=== PATIENT | female | born 1980 | race Caucasian/White ===

== ENCOUNTER 2016-06-10 08:35 | Emergency (ER) | payer OTHER ==
[~2016-06-10] VITALS: Ht 157.5 cm; Wt 68.0 kg
[~2016-06-10 08:35] MED LIST: ALPR0.5T PO; FAMO-131 PO; RISP0.5T2 PO
[2016-06-10 08:47] VITALS: BP 116/64
== END 2016-06-10 09:13 | disposition home or self-care (01) ==
LOC: ER 08:37
DX: J06.9 Acute upper respiratory infection, unspecified (principal); R05 Cough; F41.9 Anxiety disorder, unspecified; Z88.6 Allergy status to analgesic agent
CPT/HCPCS: 99283; A4606; Z7610

== ENCOUNTER 2016-11-20 02:39 | Emergency (ER) | payer MEDICARE, OTHER ==
[~2016-11-20] VITALS: Ht 157.5 cm; Wt 63.5 kg
--- NOTE | 2016-11-20 03:05 | NUR ---
TO BED 4 AMBULATORY C/O BILATERAL FOOT PAIN, FEELING DEPRESSED X3 DAYS, SI WITH PLAN TO OD ON MEDS (ATIVAN). PT AAOX4 NO ACUTE DISTRESS NOTED, RESP EVEN AND UNLABORED. URINE SAMPLE COLLECTED. PENDING ER MD ARTIS.
--- NOTE | 2016-11-20 03:28 | NUR ---
BLOOD DRAWN BY PROFESSOR OF ENGINEERING.
[2016-11-20 03:35] LABS: BASOPHILS # (AUTO) 0.1 /CMM (0.0-0.2); BASOPHILS % (AUTO) 0.7 % (0.0-2.0); EOSINOPHILS # (AUTO) 0.2 /CMM (0.0-0.7); HEMATOCRIT 34 % (33-45); HEMOGLOBIN 11.2 g/dL (11.5-14.8); LYMPHOCYTES # (AUTO) 4.1 /CMM (0.8-4.8); LYMPHOCYTES % (AUTO) 39.7 % (20.0-44.0); MEAN CORPUSCULAR HEMOGLOBIN 31 PG (26.0-33.0); MEAN CORPUSCULAR HGB CONC 33 g/dl (31.0-36.0); MEAN CORPUSCULAR VOLUME 91 fL (82-100); MONOCYTES # (AUTO) 1.1 /CMM (0.1-1.30); MONOCYTES % (AUTO) 10.8 % (2.0-12.0); NEUTROPHILS # (AUTO) 4.8 /CMM (1.8-8.9); NEUTROPHILS % (AUTO) 46.8 % (43.0-81.0); PLATELET COUNT (AUTO) 292 /CMM (150-450); RDW COEFFICIENT OF VARIATION 13.4 (11.5-15.0); RED BLOOD CELL COUNT(AUTO) 3.69 MIL/uL (4.0-5.2); WHITE BLOOD COUNT (AUTO) 10.3 K/uL (4.3-11.0)
[2016-11-20 03:36] LABS: APPEARANCE,URINE CLEAR (CLEAR); BILIRUBIN,URINE NEGATIVE (NEGATIVE); BLOOD, URINE 2+ Ery/uL (NEGATIVE); KETONES,URINE NEGATIVE (NEGATIVE); LEUKOCYTE ESTERASE ,URINE TRACE (NEGATIVE); NITRITE, URINE NEGATIVE (NEGATIVE); PROTEIN,URINE NEGATIVE (NEGATIVE); UGLUCOSE NEGATIVE (NEGATIVE); UROBILINOGEN,URINE 0.2 EU/dL (0.2)
[2016-11-20 03:38] LABS: COLOR,URINE Light yellow (YELLOW)
[2016-11-20 03:42] LABS: RBC,URINE 0-2 /HPF (0-2)
[2016-11-20 03:43] LABS: BACTERIA,URINE None seen /HPF (None Seen); SQUAMOUS EPITHELIAL CELL,UR Moderate /HPF (None Seen); WBC,URINE 0-3 /HPF (0-3)
[2016-11-20 04:05] LABS: ALANINE AMINOTRANSFERASE 30 U/L (12-78); ALBUMIN 3.6 g/dL (3.4-5.0); ALCOHOL, BLOOD < 3 mg/dL (0-0); ALKALINE PHOSPHATASE 68 U/L (46-116); ASPARTATE AMINOTRANSFERASE 20 U/L (15-37); BILIRUBIN,TOTAL 0.2 mg/dL (0.2-1.0); CALCIUM, SERUM 8.8 mg/dL (8.5-10.1); CARBON DIOXIDE 28 mmol/L (21-32); CHLORIDE 105 mmol/L (98-107); CREATININE 0.8 mg/dL (0.6-1.3); GLUCOSE 102 mg/dL (74-106); POTASSIUM 3.6 mmol/L (3.5-5.1); SODIUM SERUM 141 mmol/L (136-145); TOTAL PROTEIN, SERUM 7.1 g/dL (6.4-8.2); UREA NITROGEN, BLOOD 19 mg/dL (7-18)
[2016-11-20 04:24] LABS: ACETAMINOPHEN 0 ug/ml (10-30)
--- NOTE | 2016-11-20 06:45 | NUR ---
PT SEEN BY FREDERICK WRIGHT, PT PLACED ON 5150. PT WILL BE TRANSFERRED TO [facility]. REPORT GIVEN TO ROSALIA. PT WILL GO TO [facility] ROOM 2232.
--- NOTE | 2016-11-20 06:47 | NUR ---
ETA FOR TRANSPORT IS 0730 WITH [facility]
[2016-11-20 07:00] VITALS: BP 114/81
--- NOTE | 2016-11-20 07:43 | NUR ---
REPORT GIVEN TO AMBULANCE STAFF FOR TRANSPORT TO [place].
== END 2016-11-20 07:47 ==
LOC: ER 02:42
DX: F19.10 Other psychoactive substance abuse, uncomplicated (principal); F32.9 Major depressive disorder, single episode, unspecified; Z59.0 Homelessness; Z88.8 Allergy status to other drugs, medicaments and biological substances
CPT/HCPCS: 36415; 80048; 80076; 80305; 80329; 81001; 85025; 99285; A4606; G0480 ×2; 81000-TC; Z7610

== ENCOUNTER 2017-05-07 03:26 | Emergency (ER) | payer OTHER, MEDICARE ==
[~2017-05-07] VITALS: Ht 157.5 cm; Wt 72.6 kg
[~2017-05-07 03:26] MED LIST changes: -RISP0.5T2 PO; +RISP0.5T5 PO
--- NOTE | 2017-05-07 03:26 | NUR ---
PT RECEIVED FROM HOME BB SELF C/O "I NEED MED CLEARANCE SO I CAN STAY AT A NEAR BY FACILITY. I HAVE DEPRESSION AND ANXIETY. I WANT TO LIVE ON MY OWN". NO SOB. NO PAIN. VSS NAD. WILL CONTINUE TO MONITOR FOR ANY CHANGES DURING THE SHIFT
--- NOTE | 2017-05-07 03:45 | NUR ---
LAB AT BEDSIDE FOR BLOOD DRAW
[2017-05-07 03:54] LABS: BASOPHILS # (AUTO) 0.1 /CMM (0.0-0.2); EOSINOPHILS # (AUTO) 0.1 /CMM (0.0-0.7); EOSINOPHILS % (AUTO) 1.2 % (0.0-6.0); HEMATOCRIT 38 % (33-45); HEMOGLOBIN 12.9 g/dL (11.5-14.8); LYMPHOCYTES # (AUTO) 2.3 /CMM (0.8-4.8); LYMPHOCYTES % (AUTO) 24.1 % (20.0-44.0); MEAN CORPUSCULAR HEMOGLOBIN 31 PG (26.0-33.0); MEAN CORPUSCULAR HGB CONC 34 g/dl (31.0-36.0); MEAN CORPUSCULAR VOLUME 90 fL (82-100); MONOCYTES # (AUTO) 0.8 /CMM (0.1-1.30); MONOCYTES % (AUTO) 8.4 % (2.0-12.0); NEUTROPHILS # (AUTO) 6.4 /CMM (1.8-8.9); NEUTROPHILS % (AUTO) 65.3 % (43.0-81.0); PLATELET COUNT (AUTO) 296 /CMM (150-450); RDW COEFFICIENT OF VARIATION 13.8 (11.5-15.0); RED BLOOD CELL COUNT(AUTO) 4.19 MIL/uL (4.0-5.2); WHITE BLOOD COUNT (AUTO) 9.7 K/uL (4.3-11.0)
[2017-05-07 03:54] LABS: APPEARANCE,URINE CLEAR (CLEAR); BILIRUBIN,URINE NEGATIVE (NEGATIVE); BLOOD, URINE 1+ Ery/uL (NEGATIVE); COLOR,URINE YELLOW (YELLOW); KETONES,URINE NEGATIVE (NEGATIVE); LEUKOCYTE ESTERASE ,URINE NEGATIVE (NEGATIVE); NITRITE, URINE NEGATIVE (NEGATIVE); PROTEIN,URINE NEGATIVE (NEGATIVE); UGLUCOSE NEGATIVE (NEGATIVE); UROBILINOGEN,URINE 0.2 EU/dL (0.2)
--- NOTE | 2017-05-07 03:55 | NUR ---
CALLED DANNIELLE AT [facility], SHE STATES THEY SENT THE PATIENT OVER AND THERE IS A BED AVAILBLE ONCE CLEARED FOR PATIENT
[2017-05-07 04:03] LABS: CALCIUM, SERUM 8.7 mg/dL (8.5-10.1); CARBON DIOXIDE 26 mmol/L (21-32); CHLORIDE 105 mmol/L (98-107); CREATININE 0.8 mg/dL (0.6-1.3); GLUCOSE 114 mg/dL (74-106); SODIUM SERUM 140 mmol/L (136-145); UREA NITROGEN, BLOOD 21 mg/dL (7-18)
[2017-05-07 04:10] LABS: ALANINE AMINOTRANSFERASE 26 U/L (12-78); ALBUMIN 3.8 g/dL (3.4-5.0); ALKALINE PHOSPHATASE 75 U/L (46-116); ASPARTATE AMINOTRANSFERASE 8 U/L (15-37); BILIRUBIN,TOTAL 0.2 mg/dL (0.2-1.0); TOTAL PROTEIN, SERUM 8.4 g/dL (6.4-8.2)
[2017-05-07 04:11] LABS: ACETAMINOPHEN 0 ug/ml (10-30); ALCOHOL, BLOOD < 3 mg/dL (0-0); SALICYLATE 0.3 mg/dL (2.8-20.0)
[2017-05-07 04:13] LABS: BACTERIA,URINE Few /HPF (None Seen); SQUAMOUS EPITHELIAL CELL,UR Few /HPF (None Seen); WBC,URINE 0-2 /HPF (0-3)
--- NOTE | 2017-05-07 04:21 | NUR ---
Patient is resting comfortably in bed with eyes closed. Easily aroused. VSS
--- NOTE | 2017-05-07 05:03 | NUR ---
Patient discharged to home in stable condition. Written and verbal after care instructions given. Patient verbalizes understanding of instruction. Pt waiting in waiting room until [facility] cab picks up the pt and takes the pt to [facility] for voluntary admission. VSS. Ambulated with steady gait.
--- NOTE | 2017-05-07 05:03 | NUR ---
PT WAITING IN WAITING ROOM TO BE PICKED UP
[2017-05-07 05:06] VITALS: BP 127/73
== END 2017-05-07 05:07 | disposition home or self-care (01) ==
LOC: ER 03:31
DX: Z00.8 Encounter for other general examination (principal); F32.9 Major depressive disorder, single episode, unspecified; F41.9 Anxiety disorder, unspecified; F17.200 Nicotine dependence, unspecified, uncomplicated; Z88.6 Allergy status to analgesic agent
CPT/HCPCS: 36415; 80048; 80076; 80305; 80329; 81001; 84703; 85025; 99284; A4606; G0480 ×2; Z7610; 81000-TC

== ENCOUNTER 2019-04-25 19:49 | Emergency (ER) | payer MEDICARE, OTHER ==
[~2019-04-25] VITALS: Ht 157.5 cm; Wt 85.7 kg
--- NOTE | 2019-04-25 19:49 | NUR ---
C/O "I'M FEELING SUICIDAL, I DON'T WANT TO LIVE ANYMORE, I PLAN TO OVERDOSE ON MY DEDICATION". DENIES HI, PT TO BED 5, -SO,B NAD NOTED, VSS, PENDING MD ARTIS
--- NOTE | 2019-04-25 21:18 | NUR ---
CALLED SECURITY FOR WANDING
--- NOTE | 2019-04-25 21:19 | NUR ---
ALL BELONGINGS IN LOCKER FOR SAFETY, PATIENT SITTER BY BEDSIDE
[2019-04-25 21:21] LABS: APPEARANCE,URINE CLEAR (CLEAR); BILIRUBIN,URINE NEGATIVE (NEGATIVE); BLOOD, URINE TRACE-INTA Ery/uL (NEGATIVE); COLOR,URINE YELLOW (YELLOW); KETONES,URINE NEGATIVE (NEGATIVE); LEUKOCYTE ESTERASE ,URINE NEGATIVE (NEGATIVE); NITRITE, URINE NEGATIVE (NEGATIVE); PROTEIN,URINE NEGATIVE (NEGATIVE); UGLUCOSE NEGATIVE (NEGATIVE); UROBILINOGEN,URINE 0.2 EU/dL (0.2)
[2019-04-25 21:28] LABS: BASOPHILS # (AUTO) 0.3 /CMM (0.0-0.2); BASOPHILS % (AUTO) 2.5 % (0.0-2.0); EOSINOPHILS % (AUTO) 1.1 % (0.0-6.0); HEMATOCRIT 34 % (33-45); HEMOGLOBIN 11.2 g/dL (11.5-14.8); LYMPHOCYTES # (AUTO) 2.3 /CMM (0.8-4.8); MEAN CORPUSCULAR HGB CONC 33 g/dl (31.0-36.0); MEAN CORPUSCULAR VOLUME 87 fL (82-100); MONOCYTES % (AUTO) 9.7 % (2.0-12.0); NEUTROPHILS # (AUTO) 6.8 /CMM (1.8-8.9); NEUTROPHILS % (AUTO) 64.7 % (43.0-81.0); PLATELET COUNT (AUTO) 390 /CMM (150-450); RED BLOOD CELL COUNT(AUTO) 3.88 MIL/uL (4.0-5.2); WHITE BLOOD COUNT (AUTO) 10.5 K/uL (4.3-11.0)
[2019-04-25 21:41] LABS: ACETAMINOPHEN < 2 ug/ml (10-30); ALANINE AMINOTRANSFERASE 30 U/L (12-78); ALBUMIN 3.7 g/dL (3.4-5.0); ALCOHOL, BLOOD < 3 mg/dL (0-0); ALKALINE PHOSPHATASE 68 U/L (46-116); ASPARTATE AMINOTRANSFERASE 23 U/L (15-37); BILIRUBIN,DIRECT 0.1 mg/dL (0.0-0.2); BILIRUBIN,TOTAL 0.6 mg/dL (0.2-1.0); CALCIUM, SERUM 8.7 mg/dL (8.5-10.1); CARBON DIOXIDE 26 mmol/L (21-32); CHLORIDE 103 mmol/L (98-107); CREATININE 0.7 mg/dL (0.6-1.3); GLUCOSE 101 mg/dL (74-106); POTASSIUM 3.6 mmol/L (3.5-5.1); SALICYLATE 2.3 mg/dL (2.8-20.0); SODIUM SERUM 138 mmol/L (136-145); TOTAL PROTEIN, SERUM 7.6 g/dL (6.4-8.2); UREA NITROGEN, BLOOD 13 mg/dL (7-18)
[2019-04-25 22:01] LABS: BACTERIA,URINE 2+ /HPF (None Seen); RBC,URINE 0-2 /HPF (0-2); SQUAMOUS EPITHELIAL CELL,UR Few /HPF (None Seen); WBC,URINE 0-2 /HPF (0-3)
--- NOTE | 2019-04-25 22:13 | NUR ---
FAXED CLINICALS TO [facility]
--- NOTE | 2019-04-26 00:03 | NUR ---
ACCEPTED AT [facility] PENDING UPREG
--- NOTE | 2019-04-26 02:07 | NUR ---
PT ACCEPTED TO [facility] BY DR ALVARADO. # FOR REPORT
--- NOTE | 2019-04-26 02:29 | NUR ---
CALLING JONI FOR TRANSPORT TO [facility]. TEQUILA CIFUENTES TRIP #: [id number] ETA: 30MINS
[2019-04-26 02:42] VITALS: BP 116/72
--- NOTE | 2019-04-26 02:44 | NUR ---
REPORT GIVEN TO BETTY WALLS FOR RANI
--- NOTE | 2019-04-26 02:59 | NUR ---
REPORT GIVEN TO TEMI FOR RANI.
== END 2019-04-26 03:04 ==
LOC: ER 19:52
DX: R45.851 Suicidal ideations (principal); D64.9 Anemia, unspecified; F41.9 Anxiety disorder, unspecified; F32.9 Major depressive disorder, single episode, unspecified; F20.9 Schizophrenia, unspecified; F17.200 Nicotine dependence, unspecified, uncomplicated; Z88.6 Allergy status to analgesic agent; Z79.899 Other long term (current) drug therapy
CPT/HCPCS: 36415; 80048; 80076; 80305; 80307; 80329; 81001; 84702; 85025; 87086; 99285; G0480; 81000-TC

== ENCOUNTER 2019-05-22 11:06 | Emergency (ER) | payer MEDICARE, OTHER ==
[~2019-05-22] VITALS: Ht 157.5 cm; Wt 88.5 kg
[2019-05-22 11:10] VITALS: BP 143/85
[2019-05-22] MEDS ORDERED: IBUPROFEN 600 MG TABLET PO ONE ×2 (11:29→11:30)
== END 2019-05-22 11:45 | disposition home or self-care (01) ==
LOC: ER 11:11
DX: K08.89 Other specified disorders of teeth and supporting structures (principal); J02.9 Acute pharyngitis, unspecified; F20.9 Schizophrenia, unspecified; F41.9 Anxiety disorder, unspecified; F32.9 Major depressive disorder, single episode, unspecified; F17.200 Nicotine dependence, unspecified, uncomplicated; Z88.6 Allergy status to analgesic agent; Z79.899 Other long term (current) drug therapy

== ENCOUNTER 2019-05-25 08:36 | Emergency (ER) | payer MEDICARE, OTHER ==
[~2019-05-25] VITALS: Ht 162.6 cm; Wt 71.2 kg
[2019-05-25 08:42] VITALS: BP 134/85
== END 2019-05-25 09:00 | disposition home or self-care (01) ==
LOC: ER 08:39
DX: J06.9 Acute upper respiratory infection, unspecified (principal); F17.200 Nicotine dependence, unspecified, uncomplicated; Z79.899 Other long term (current) drug therapy; Z88.6 Allergy status to analgesic agent

== ENCOUNTER 2019-06-01 11:17 | Emergency (ER) | payer OTHER ==
[~2019-06-01] VITALS: Ht 157.5 cm; Wt 88.0 kg
[2019-06-01 11:25] VITALS: BP 145/89
--- NOTE | 2019-06-01 12:11 | NUR ---
Patient discharged to home in stable condition. Written and verbal after care instructions given. Patient verbalizes understanding of instruction.
== END 2019-06-01 12:13 | disposition home or self-care (01) ==
LOC: ER 11:22
DX: R11.2 Nausea with vomiting, unspecified (principal); R19.7 Diarrhea, unspecified; Z88.6 Allergy status to analgesic agent; Z79.899 Other long term (current) drug therapy

== ENCOUNTER 2019-08-09 12:08 | Emergency (ER) | payer OTHER ==
[~2019-08-09] VITALS: Ht 157.5 cm; Wt 88.5 kg
--- NOTE | 2019-08-09 12:15 | NUR ---
AT BEDSIDE FOR EVAL.
--- NOTE | 2019-08-09 12:20 | NUR ---
URINE SPECIMEN COLLECTED AND SENT TO LAB.
[2019-08-09] MEDS ORDERED: OLANZAPINE 5 MG TABLET ONE (12:30)
[2019-08-09] MEDS ORDERED: OLANZAPINE 5 MG TABLET PO ONE (12:30)
--- NOTE | 2019-08-09 12:51 | NUR ---
Patient discharged to home in stable condition. Written and verbal after care instructions given. Patient verbalizes understanding of instruction.
[2019-08-09 12:52] VITALS: BP 128/70
== END 2019-08-09 12:53 | disposition home or self-care (01) ==
LOC: ER 12:08
DX: F41.1 Generalized anxiety disorder (principal); F29 Unspecified psychosis not due to a substance or known physiological condition; F32.9 Major depressive disorder, single episode, unspecified; R00.2 Palpitations; R06.4 Hyperventilation; Z88.6 Allergy status to analgesic agent; Z79.899 Other long term (current) drug therapy

== ENCOUNTER 2019-10-16 11:22 | Emergency (ER) | payer BC, OTHER ==
[~2019-10-16] VITALS: Ht 157.5 cm; Wt 88.5 kg
[2019-10-16 11:27] VITALS: BP 132/76
--- NOTE | 2019-10-16 11:35 | NUR ---
SEEN AND EXAMINED BY .
--- NOTE | 2019-10-16 11:46 | NUR ---
Patient discharged to home in stable condition. Written and verbal after care instructions given. Patient verbalizes understanding of instruction.
== END 2019-10-16 11:48 | disposition home or self-care (01) ==
LOC: ER 11:26
DX: F28 Other psychotic disorder not due to a substance or known physiological condition (principal); Z76.0 Encounter for issue of repeat prescription; F41.9 Anxiety disorder, unspecified; F32.9 Major depressive disorder, single episode, unspecified; F17.200 Nicotine dependence, unspecified, uncomplicated; Z88.6 Allergy status to analgesic agent; Z79.899 Other long term (current) drug therapy

== ENCOUNTER 2020-01-28 15:35 | Emergency (ER) | payer BC, OTHER ==
[~2020-01-28] VITALS: Ht 157.5 cm; Wt 83.5 kg
--- NOTE | 2020-01-28 15:35 | NUR ---
PT BIB SELF C/O "I FEEL LIKE IM HAVING PANIC ATTACK". PT IS AAOX4, NOT IN RESPIRATORY DISTRESS, V/S STABLE, KEPT RESTED AND COMFORTABLE. WILL CONTINUE TO MONITOR.
--- NOTE | 2020-01-28 16:21 | NUR ---
SEEN AND EXAMINED BY MICHELLE KAN
--- NOTE | 2020-01-28 16:30 | NUR ---
COVID SPECIMEN OBTAINED AND SENT TO LAB.
--- NOTE | 2020-01-28 16:32 | NUR ---
PT STATES SHE IS FEELING SUICIDAL.
--- NOTE | 2020-01-28 16:35 | NUR ---
ER PHLEB AT BEDSIDE FOR BLOOD DRAW.
[2020-01-28 16:45] LABS: BASOPHILS # (AUTO) 0.1 /CMM (0.0-0.2); BASOPHILS % (AUTO) 0.9 % (0.0-2.0); EOSINOPHILS % (AUTO) 1.8 % (0.0-6.0); HEMATOCRIT 42 % (33-45); HEMOGLOBIN 13.7 g/dL (11.5-14.8); LYMPHOCYTES # (AUTO) 2.8 /CMM (0.8-4.8); LYMPHOCYTES % (AUTO) 27.5 % (20.0-44.0); MEAN CORPUSCULAR HGB CONC 33 g/dl (31.0-36.0); MEAN CORPUSCULAR VOLUME 91 fL (82-100); MONOCYTES # (AUTO) 0.7 /CMM (0.1-1.30); MONOCYTES % (AUTO) 7.2 % (2.0-12.0); NEUTROPHILS # (AUTO) 6.3 /CMM (1.8-8.9); NEUTROPHILS % (AUTO) 62.6 % (43.0-81.0); PLATELET COUNT (AUTO) 296 /CMM (150-450); RED BLOOD CELL COUNT(AUTO) 4.55 MIL/uL (4.0-5.2)
[2020-01-28 17:05] LABS: ALANINE AMINOTRANSFERASE 42 U/L (12-78); ALBUMIN 4.1 g/dL (3.4-5.0); ALCOHOL, BLOOD < 3 mg/dL (0-0); ALKALINE PHOSPHATASE 99 U/L (46-116); ASPARTATE AMINOTRANSFERASE 75 U/L (15-37); BILIRUBIN,TOTAL 0.2 mg/dL (0.2-1.0); CALCIUM, SERUM 9.1 mg/dL (8.5-10.1); CARBON DIOXIDE 27 mmol/L (21-32); CHLORIDE 103 mmol/L (98-107); CREATININE 0.7 mg/dL (0.6-1.3); GLUCOSE 120 mg/dL (74-106); POTASSIUM 3.9 mmol/L (3.5-5.1); SODIUM SERUM 138 mmol/L (136-145); TOTAL PROTEIN, SERUM 8.5 g/dL (6.4-8.2); UREA NITROGEN, BLOOD 15 mg/dL (7-18)
[2020-01-28 17:10] LABS: ACETAMINOPHEN 0 ug/ml (10-30)
[2020-01-28 17:25] LABS: APPEARANCE,URINE CLEAR (CLEAR); BILIRUBIN,URINE NEGATIVE (NEGATIVE); BLOOD, URINE TRACE-INTA Ery/uL (NEGATIVE); COLOR,URINE OTHER (YELLOW); KETONES,URINE NEGATIVE (NEGATIVE); LEUKOCYTE ESTERASE ,URINE NEGATIVE (NEGATIVE); NITRITE, URINE NEGATIVE (NEGATIVE); PROTEIN,URINE NEGATIVE (NEGATIVE); UGLUCOSE NEGATIVE (NEGATIVE); UROBILINOGEN,URINE 0.2 EU/dL (0.2)
[2020-01-28 17:39] LABS: BACTERIA,URINE RARE /HPF (None Seen); SQUAMOUS EPITHELIAL CELL,UR 0-2 /HPF (None Seen); WBC,URINE 0-2 /HPF (0-3)
--- NOTE | 2020-01-28 18:51 | NUR ---
CLINICALS AND FACE SHEET FAXED TO [facility]. AWAITING RESPOND.
[2020-01-28] MEDS ORDERED: IOHEXOL-350 100 ML VIAL IV ONE (19:32)
[2020-01-28] MEDS ORDERED: IV NS 0.9% 0 ML IV ONE (19:32)
--- NOTE | 2020-01-28 19:44 | NUR ---
SPOKE TO GREGORIO FROM [facility]. UNABLE TO ACCPET PT D/T [employer] INSURNACE.
--- NOTE | 2020-01-28 20:00 | NUR ---
SPOKE TO PARI FROM [facility] AWARE PT HAS [employer] INSURANCE, WILL FAX CLINICALS AND FACESHEET TO [phone]. CALL BACK NUMBER [phone]
--- NOTE | 2020-01-28 20:32 | NUR ---
SPOKE TO LUCY KERR [phone] WILL FOLLOW UP WITH THEIR [facility].
--- NOTE | 2020-01-28 20:40 | NUR ---
[facility] [phone] WILL CALL [facility] FOR ADMISSION.
--- NOTE | 2020-01-28 21:28 | NUR ---
PER DANILEA CM IS WAITING ON [facility] CALL BACK FOR POSSIBLE ADMISSION
--- NOTE | 2020-01-28 21:47 | NUR ---
waiting for call from chris thomas for authorization. recieved auth from Agnieszka HAINES
--- NOTE | 2020-01-28 21:57 | NUR ---
accepted [facility]ris river[facility] unit 1 room 106b [phone]
--- NOTE | 2020-01-28 22:00 | NUR ---
SPOKE WITH USHA FROM [facility]. [facility] ETA FOR AMBULANCE TRANSPORT WILL CALL BACK WITH UNIT AND ETA.
--- NOTE | 2020-01-28 22:07 | NUR ---
REPORT GIVEN TO KERRI WALLS AT [facility] FOR RANI.
[2020-01-28 22:22] VITALS: BP 101/56
--- NOTE | 2020-01-28 22:26 | NUR ---
SPOKE WITH [facility] FOR TRANSPORT 90 MINS
--- NOTE | 2020-01-28 23:00 | NUR ---
REPORT GIVEN TO AMBULANCE TEAM FOR RANI. AND TRANSFERRING RESPONSIBILTIES.
== END 2020-01-28 23:00 ==
LOC: ER 15:44
DX: F29 Unspecified psychosis not due to a substance or known physiological condition (principal); R45.851 Suicidal ideations; F41.9 Anxiety disorder, unspecified; Z20.828 Contact with and (suspected) exposure to other viral communicable diseases; F20.9 Schizophrenia, unspecified; F32.9 Major depressive disorder, single episode, unspecified; Z88.6 Allergy status to analgesic agent; Z91.011 Allergy to milk products; Z91.018 Allergy to other foods; F17.200 Nicotine dependence, unspecified, uncomplicated
CPT/HCPCS: 36415; 80048-TC; 80076-TC; 81000-TC; 84702-TC; 85025-TC; C9803; G0480; J7050; Q9967

== ENCOUNTER 2020-03-09 05:24 | Emergency (ER) | payer BC, OTHER ==
[~2020-03-09] VITALS: Ht 157.5 cm; Wt 78.0 kg
--- NOTE | 2020-03-09 05:30 | NUR ---
NUCLEAR PHARMACIST AT BEDSIDE FOR BLOOD DRAW
--- NOTE | 2020-03-09 05:34 | NUR ---
PT BIBRA 839 C/O "I NEED PLACEMENT IN A BOARDING CARE" PT KICKED OUT OF D/T SMOKING WEED. PT DENIES SI/HI. PT HAS NO MEDICAL COMPLAINTS AT THIS TIME. PT AAOX4, VSS, RESPIRATIONS EVEN AND UNLABORED ON RA W/ NAD NOTED. PT CONNECTED TO THE MONITOR AND POX
--- NOTE | 2020-03-09 06:00 | NUR ---
PT UNABLE TO PROVIDE URINE. MD AWARE
[2020-03-09 06:19] LABS: CALCIUM, SERUM 8.9 mg/dL (8.5-10.1); CARBON DIOXIDE 27 mmol/L (21-32); CHLORIDE 102 mmol/L (98-107); CREATININE 0.9 mg/dL (0.6-1.3); GLUCOSE 110 mg/dL (74-106); POTASSIUM 3.8 mmol/L (3.5-5.1); SODIUM SERUM 140 mmol/L (136-145); UREA NITROGEN, BLOOD 20 mg/dL (7-18)
--- NOTE | 2020-03-09 06:23 | NUR ---
PT UNABLE TO PROVIDE URINE AT THIS TIME. MD REYES
[2020-03-09 06:24] LABS: ALANINE AMINOTRANSFERASE 21 U/L (12-78); ALBUMIN 4.1 g/dL (3.4-5.0); ALCOHOL, BLOOD < 3 mg/dL (0-0); ALKALINE PHOSPHATASE 101 U/L (46-116); ASPARTATE AMINOTRANSFERASE 17 U/L (15-37); BILIRUBIN,DIRECT 0.1 mg/dL (0.0-0.2); BILIRUBIN,TOTAL 0.2 mg/dL (0.2-1.0); TOTAL PROTEIN, SERUM 8.6 g/dL (6.4-8.2)
--- NOTE | 2020-03-09 06:25 | NUR ---
PT AMBULATED TO THE RESTROOM
[2020-03-09 06:28] LABS: ACETAMINOPHEN < 10 ug/ml (10-30)
--- NOTE | 2020-03-09 06:49 | NUR ---
PT ALERT AND AWAKE. NAD NOTED. PT CONNECTED TO THE MONITOR AND POX. VSS
[2020-03-09 09:13] LABS: BASOPHILS % (AUTO) 0.3 % (0.0-2.0); EOSINOPHILS % (AUTO) 0.8 % (0.0-6.0); HEMATOCRIT 40 % (33-45); LYMPHOCYTES # (AUTO) 2.5 /CMM (0.8-4.8); LYMPHOCYTES % (AUTO) 26.1 % (20.0-44.0); MEAN CORPUSCULAR HGB CONC 33 g/dl (31.0-36.0); MEAN CORPUSCULAR VOLUME 92 fL (82-100); MONOCYTES # (AUTO) 0.9 /CMM (0.1-1.30); MONOCYTES % (AUTO) 9.3 % (2.0-12.0); NEUTROPHILS % (AUTO) 63.5 % (43.0-81.0); PLATELET COUNT (AUTO) 364 /CMM (150-450); RED BLOOD CELL COUNT(AUTO) 4.31 MIL/uL (4.0-5.2); WHITE BLOOD COUNT (AUTO) 9.5 K/uL (4.3-11.0)
--- NOTE | 2020-03-09 09:30 | NUR ---
PT STATED SHE IS NOT SUICIDAL AND WANTS TO BE DISCHARGED BECAUSE SHE FOUND A PLACE TO STAY.
--- NOTE | 2020-03-09 09:36 | NUR ---
Patient given written and verbal discharge instructions. Patient verbalizes understanding of instructions. Patient is ambulatory with steady gait. Refuses offer of assisted placement. Patient given list of available shelters in surrounding area.
[2020-03-09 09:37] VITALS: BP 129/74
[2020-03-09] MEDS ORDERED: ACETAMINOPHEN ES 500 MG TABLET ONE (09:40)
[2020-03-09] MEDS ORDERED: ACETAMINOPHEN ES 500 MG TABLET PO ONE (10:00)
[2020-03-09 11:22] LABS: BILIRUBIN,URINE Negative (NEGATIVE); BLOOD, URINE Negative Ery/uL (NEGATIVE); COLOR,URINE YELLOW (YELLOW); LEUKOCYTE ESTERASE ,URINE Trace (NEGATIVE); NITRITE, URINE Negative (NEGATIVE); PH,URINE 7.5 (5.0-8.0); PROTEIN,URINE Trace mg/dl (NEGATIVE); UGLUCOSE Negative (NEGATIVE); UROBILINOGEN,URINE 0.2 EU/dL (0.2)
[2020-03-09 11:40] LABS: BACTERIA,URINE Few /HPF (None Seen); RBC,URINE NONE SEEN /HPF (0-2); SQUAMOUS EPITHELIAL CELL,UR Few /HPF (None Seen); WBC,URINE 0-2 /HPF (0-3)
== END 2020-03-09 09:41 | disposition home or self-care (01) ==
LOC: ER 05:26
DX: F22 Delusional disorders (principal); F20.9 Schizophrenia, unspecified; F41.9 Anxiety disorder, unspecified; F32.9 Major depressive disorder, single episode, unspecified; Z88.6 Allergy status to analgesic agent; Z79.899 Other long term (current) drug therapy
CPT/HCPCS: 36415; 80048-TC; 80076-TC; 81001; 85025-TC; G0480

== ENCOUNTER 2020-12-22 15:19 | Emergency (ER) | payer MEDICARE, OTHER ==
[~2020-12-22] VITALS: Ht 157.5 cm; Wt 88.9 kg
[2020-12-22 15:32] VITALS: BP 136/85
--- NOTE | 2020-12-22 15:38 | NUR ---
SEEN AND EXAMINED BY MICHELLE KAN
--- NOTE | 2020-12-22 15:45 | NUR ---
Patient discharged to home in stable condition. Written and verbal after care instructions given. Patient verbalizes understanding of instruction.
== END 2020-12-22 15:46 | disposition home or self-care (01) ==
LOC: ER 15:22
DX: Z76.0 Encounter for issue of repeat prescription (principal); F20.9 Schizophrenia, unspecified; F41.9 Anxiety disorder, unspecified; F32.9 Major depressive disorder, single episode, unspecified; F17.200 Nicotine dependence, unspecified, uncomplicated; Z79.899 Other long term (current) drug therapy

== ENCOUNTER 2021-01-29 16:29 | Emergency (ER) | payer MEDICARE, OTHER, MEDICAID ==
[~2021-01-29] VITALS: Ht 157.5 cm; Wt 88.0 kg
[2021-01-29 16:29] VITALS: BP 123/64
[2021-01-29] MEDS ORDERED: RISP0.5T65 PO (17:24)
== END 2021-01-29 17:36 | disposition home or self-care (01) ==
LOC: ER 16:33
DX: Z76.0 Encounter for issue of repeat prescription (principal); F20.9 Schizophrenia, unspecified; F31.9 Bipolar disorder, unspecified; F17.200 Nicotine dependence, unspecified, uncomplicated; Z79.899 Other long term (current) drug therapy

== ENCOUNTER 2021-09-11 12:16 | Inpatient (IN) | payer OTHER ==
[~2021-09-11] VITALS: Ht 157.5 cm; Wt 81.6 kg
[~2021-09-11 12:16] MED LIST changes: +RISP0.5T65 PO
[2021-09-11] MEDS ORDERED: ACETAMINOPHEN ES 500 MG TABLET PO PRN ×2 (14:00→14:30)
--- NOTE | 2021-09-11 14:20 | NUR ---
PATIENT ADMITTED TO THE ROOM 319 ACCOMPANIED BY EMBROIDERY CUTTER A CLINICAL TRIAL. HX: SCHIZOPHRENIA, ANXIETY, AND DEPRESSION. SKIN IS INTACT, RESPIRATORY EVEN AND UNLABORED ON ROOM AIR. PATIENT DENIES OUT OF COUNTRY LAST THREE MONTH, AND NEGATIVE RAPID COVID. GIVEN ORIENTATION FOR TV REMOTE CONTROL, CALL LIGHT, MEDICATION, AND MEAL TIME. CALL LIGHT WITHIN REACH, WILL CONTINUE TO MONITOR.
[2021-09-11] MEDS ORDERED: IBUPROFEN 200 MG TABLET PO PRN (14:30)
[2021-09-11] MEDS ORDERED: MAG HYDROX/AL HYDROX/SIMETH 30 ML UDC PO PRN (14:30)
[2021-09-11] MEDS ORDERED: MAGNESIUM HYDROXIDE 30 ML UDC PO PRN (14:30)
[2021-09-11] MEDS ORDERED: LORAZEPAM 1 MG TABLET FOR AGITATION PO PRN (14:30)
[2021-09-11] MEDS ORDERED: ZOLPIDEM TARTRATE 10 MG TABLET PO PRN (15:00)
[2021-09-11 20:00] VITALS: BP 124/79
[2021-09-11] MEDS ORDERED: KEY,NONCONTROL,TO KEEP IN PYXI 1 EA MC ONE (21:50)
[2021-09-11] MEDS: RISPERDAL 0.5 MG PO SCH (22:00)
--- NOTE | 2021-09-11 22:03 | NUR ---
Pt's home med, Risperdal 0.5mg, was not in her med cassette. In-house pharm already closed at this time. Per after-hrs pharm, if MD can give a one time order so we can issue med from [facility]. Left message to Dr. Hahn
--- NOTE | 2021-09-11 22:46 | NUR ---
with order for Risperdal 0.5mg po one time dose for tonight. Will follow up with in-house pharmacy tomorrow re pt's home med
[2021-09-11] MEDS ORDERED: risperiDONE 1 MG TABLET PO ONE (23:00)
--- NOTE | 2021-09-12 07:30 | NUR ---
MS RN NOTES RECEIVED PATIENT AWAKE SITTING ON HER BED. PATIENT IS ALERT AND ORIENTED TIMES 4. NO PAIN NOTED. NO SOB NOTED. NO DISTRESS NOTED. ABLE TO MAKE NEEDS KNOWN. NO IV ACCESS. ABLE TO AMBULATE. ALL SAFETY MEASURES IN PLACE. BED LOCKED IN THE LOWEST POSITION. CALL LIGHT AND TABLE IN EASY REACH. WILL CONTINUE TO MONITOR.
--- NOTE | 2021-09-12 09:21 | NUR ---
RN NOTES THE PATIENT SHOWED ME CONTROL PILLS BOX AND ASKING IF SHE CAN TAKE THEM. CALLED DR HARRIS WITH PHONE NUMBER [phone] AND INFORMED DOCTOR AT [address] HARRIS STATED THE PATIENT CAN TAKE THE CONTROL PILLS.
--- NOTE | 2021-09-12 18:53 | NUR ---
MS RN CLOSING NOTES PATIENT AWAKE SITTING ON HER BED. PATIENT IS ALERT AND ORIENTED TIMES 4. NO PAIN NOTED. NO SOB NOTED. NO DISTRESS NOTED. ABLE TO MAKE NEEDS KNOWN. NO IV ACCESS. ABLE TO AMBULATE. ALL SAFETY MEASURES IN PLACE. BED LOCKED IN THE LOWEST POSITION. CALL LIGHT AND TABLE IN EASY REACH. WILL ENDORSE FOR RANI.
--- NOTE | 2021-09-12 19:15 | NUR ---
RN NOTE PT IN ROOM. A/OX4. DENIES ANY PAIN/DISCOMFORT. RESPIRATIONS EVEN/UNLABORED. SAFETY INSTRUCTIONS PROVIDED. PT VERBALIZED UNDERSTANDING. WILL CONT TO MONITOR.
[2021-09-12 20:00] VITALS: BP 123/70
[2021-09-12] MEDS: RISPERDAL 0.5 MG PO SCH (21:26)
--- NOTE | 2021-09-13 06:50 | NUR ---
RN NOTE PT SLEPT WELL DURING THE NIGHT. NO BEHAVIOR ISSUES. SAFETY MEASURES MAINTAINED.
--- NOTE | 2021-09-13 07:35 | NUR ---
RN OPENING NOTES PATIENT IN ROOM AWAKE. A/OX4. DENIES ANY PAIN/DISCOMFORT. RESPIRATIONS EVEN/UNLABORED. SAFETY INSTRUCTIONS IN PLACE. WILL CONTINUE TO MONITOR
--- NOTE | 2021-09-13 09:30 | NUR ---
RN NOTES PATIENT SHOWERED SELF AND LINEN CHANGED.
--- NOTE | 2021-09-13 19:00 | NUR ---
RN NOTES: RECEIVED AWAKE ON BED WATCHING TV, A/OX4, ORIENTED TO UNIT AND STAFF, VERY COOPERATIVE, UPON ENDORSEMENT COMMUNICATING WELL, HER STUDY MEDICATION WILL START ON 09/18/2021. -FALL AND SAFETY PRECAUTION OBSERVED.
--- NOTE | 2021-09-13 19:12 | NUR ---
RN CLOSING NOTES PATIENT AWAKE IN ROOM. A/O X4. NO COMPLAINTS VERBALIZED THROUGH OUT SHIFT. SAFETY PRECAUTIONS MAINTAINED. WILL ENDORSE TO THE FIREWORKS DISPLAY SPECIALIST NURSE FOR RANI
[2021-09-13 20:00] VITALS: BP 113/61
--- NOTE | 2021-09-14 07:27 | NUR ---
MS RN OPENING NOTE RECEIVED PT IN BED ASLEEP, EASILY AROUSED. A/O X4, ABLE TO MAKE NEEDS KNOWN. ON RA, TOLERATING WELL. BREATHING EVEN AND UNLABORED. NOT IN ANY SIGN OF RESPIRATORY DISTRESS. DENIES PAIN OR DISCOMFORT AT THIS TIME. SAFETY MEASURES IN PLACE. WILL CONTINUE TO MONITOR PT.
--- NOTE | 2021-09-14 07:38 | NUR ---
RN NOTES: STABLE IN THE NIGHT, COOPERATIVE AND PLEASANT PERSONALITY, CONVERSANT. ENDORSED FOR CONTINUITY OF CARE.
[2021-09-14 08:00] VITALS: BP 136/76
[2021-09-14 16:00] VITALS: BP 129/78
--- NOTE | 2021-09-14 18:51 | NUR ---
MS RN CLOSING NOTE PT IN BED ASLEEP, EASILY AROUSED. A/O X4, ABLE TO MAKE NEEDS KNOWN. ON RA, TOLERATING WELL. BREATHING EVEN AND UNLABORED. NOT IN ANY SIGN OF RESPIRATORY DISTRESS. DENIES PAIN OR DISCOMFORT AT THIS TIME. NO EPISODES OF ANY BEHAVIOR PROBLEM DURING SHIFT. SAFETY MEASURES IN PLACE. WILL ENDORSE TO FRUIT HARVESTER NURSE FOR RANI.
--- NOTE | 2021-09-14 19:30 | NUR ---
MS RN NOTE PATIENT IN ROOM DURING RANI REPORT. NO S/S OF APPARENT DISTRESS. NO C/O PAIN AT THIS TIME. PATIENT WATCHING TELEVISION. WILL CONTINUE WITH PATIENT'S PLAN OF CARE.
--- NOTE | 2021-09-14 19:52 | NUR ---
MS RN NOTE PATIENT ASKED FOR HER DIRECTOR OF SOCIAL MEDIA MARKETING AT THIS TIME WENT DOWN FOR SMOKE BREAK. ASKED PATIENT TO SIGN OUT.
[2021-09-14 20:31] VITALS: BP 118/57
--- NOTE | 2021-09-15 08:10 | NUR ---
MS RN OPENING NOTE Patient in room, ambulatory. On room air breathing evenly and unlabored. No SOB or s/s of distress noted. No IV access due to clinical trial status. Safety precautions in place: bed in low, locked position; siderails up x 2; call light within reach. Will continue to monitor.
--- NOTE | 2021-09-15 19:15 | NUR ---
RN opening notes Received Pt in the room sitting comfortably watching TV. Pt is a clinical trial. PT is alert and orientedX3. On room air. No SOB. No S/S of distress noted. Pt is able to ambulates with a steady gait. No IV site. Safety precautions is maintained. Bed at low position, brakes locked, side rails upX2, hob elevated and call light is within reach. Will continue to monitor.
[2021-09-15 20:00] VITALS: BP 120/66
--- NOTE | 2021-09-15 20:04 | NUR ---
MS RN CLOSING NOTE Patient in room, ambulatory. A/O X 3, able to make needs known. On room air breathing evenly and unlabored. No SOB or s/s of distress noted. No IV access due to clinical trial status. Safety precautions in place: bed in low, locked position; siderails up x 2; call light within reach. Will endorse to date night caregiver nurse for RANI.
--- NOTE | 2021-09-16 01:53 | NUR ---
RN NOTES RECEIVED REPORT FROM TITI ZENG; WILL CONT PLAN OF CARE
--- NOTE | 2021-09-16 06:52 | NUR ---
RN NOTE PATIENT AWAKE, A/OX4, AMBULATORY WITH STEADY GAIT; BREATHING EVEN AND UNLABORED; NO SOB NOTED; NO DISTRESS NOTED; ALL NEEDS RENDERED; WILL ENDORSE RANI TO ONCOMING SHIFT, BED LOCKED IN LOW POSITION; SIDE RAILSX2; CALL LIGHT WITHIN REACH;
--- NOTE | 2021-09-16 08:09 | NUR ---
MS RN OPENING NOTE Patient in room, ambulatory. A/O x 3, able to make need known. On room air breathing evenly and unlabored. No SOB or s/s of distress noted. No IV access due to clinical trial status. Safety precautions in place: bed in low, locked position; siderails up x 2; call light within reach. Will continue to monitor.
--- NOTE | 2021-09-16 19:30 | NUR ---
RN NOTE PT IN ROOM. A/OX4. INDEPENDENT WITH ADLS. INSTRUCTED TO ASK FOR ANY ASSISTANCE NEEDED. PT VERBALIZED UNDERSTANDING. CALL LIGHT WITHIN REACH.
--- NOTE | 2021-09-16 19:38 | NUR ---
MS RN CLOSING NOTE Patient in room, ambulatory. A/O x 3, able to make needs known. Stable on room air breathing evenly and unlabored. No SOB or s/s of distress noted. No IV access due to clinical trial status. Safety precautions in place: bed in low, locked position; siderails up x 2; call light within reach. Will endorse to meteorological engineer nurse for RANI.
[2021-09-16 20:00] VITALS: BP 119/66
--- NOTE | 2021-09-17 07:30 | NUR ---
RN OPENING NOTES PATIENT IN ROOM. A/OX4. INDEPENDENT WITH ADL. ON CLINICAL OBSERVATION. NO COMPLAINTS AT THIS TIME. SAFETY PRECAUTIONS IN PLACE. WILL CONTINUE TO MONITOR
[2021-09-17 08:00] VITALS: BP 116/61
[2021-09-17 16:00] VITALS: BP 133/59
--- NOTE | 2021-09-17 19:00 | NUR ---
POTATO CHIP PROCESSING SUPERVISOR NOTES PATIENT AWAKE IN ROOM. INSTRUCTED PATIENT THAT SHE WILL BE NPO TONIGHT AND MEDS WILL BE HELD UNTIL AM LABS. PATIENT VERBALIZED UNDERSTANDING OF PLAN. SAFETY PRECAUTIONS IN PLACE. WILL ENDORSE TO THE BEADER TENDER NURSE FOR RANI Addendum: 09/17/21 at 1913 by JOSE ENRIQUE DONG RN CLOSING NOTES NOT DISCHARGE
[2021-09-17 20:00] VITALS: BP 101/53
--- NOTE | 2021-09-17 23:08 | NUR ---
RN OPENING NOTES PT IN BED, AWAKE, WATCHING TV. AOx4. PATIENT IS STABLE. PT MADE AWARE THAT SHE WILL BE NPO AND MEDICATIONS WILL BE HELD AFTER 2200. WILL CONTINUE TO MONITOR.
--- NOTE | 2021-09-18 06:49 | NUR ---
RN CLOSING NOTES PT IN BED, AWAKE, WATCHING TV. AOx4. ON RA AND TOLERATING WELL. NO SOB NOTED. NO S/SX OF RESPIRATORY DISTRESS NOTED. NO IV ACCESS BECAUSE PT IS IN CLINICAL TRIAL. ALL ORDERS CARRIED OUT. ALL NEEDS MET. PT KEPT CLEAN AND DRY. SAFETY PRECAUTIONS IN PLACE: BED IN LOWEST, LOCKED POSITION, SIDERAILS UPx2, AND BRAKES ON. TABLE AND CALL LIGHT WITHIN REACH. WILL ENDORSE TO ONCOMING SHIFT FOR RANI.
--- NOTE | 2021-09-18 07:30 | NUR ---
MS RN OPENING NOTES: RECEIVED PATIENT AWAKE IN BED. A/O X 4 AND ABLE TO VERBALIZED NEEDS. PATIENT AMBULATORY. NO SOB OR CARDIAC DISTRESS NOTED, AFEBRILE. ON NPO. SAFETY PRECAUTIONS MAINTAINED: BED LOCKED AND IN LOWEST POSITION. CALL LIGHT IN EASY REACH FOR HELP. WILL MONITOR FOR ANY SIGNIFICANT CHANGES.
[2021-09-18 08:00] VITALS: BP 116/71
[2021-09-18] MEDS ORDERED: LORAZEPAM 1 MG TABLET FOR AGITATION PO PRN (12:00)
[2021-09-18] MEDS ORDERED: ZOLPIDEM TARTRATE 10 MG TABLET PO PRN (12:00)
--- NOTE | 2021-09-18 12:10 | NUR ---
RN NOTES: PATIENT HAD HER LABS DONE. PATIENT STABLE AND AMBULATORY.
--- NOTE | 2021-09-18 18:33 | NUR ---
MS RN CLOSING NOTES: PATIENT IN BED WATCHING TELEVISION AT THIS TIME. A/O X 4 AND ABLE TO VERBALIZED NEEDS. PATIENT NO SOB OR CARDIAC DISTRESS NOTED, AFEBRILE. NO IV ACCESS NOTED. PATIENT AMBULATE FREQUENTLY, DENIES ANY PAIN. NO EPISODES OF HALLUCINATIONS PER PATIENT VERBALIZED. SAFETY PRECAUTIONS MAINTAINED: BED LOCKED AND IN LOWEST POSITION, SIDE RAILS UP X 2 AND CALL LIGHT IN EASY REACH FOR HELP/ASSISTANCE. ENDORSED TO NEXT SHIFT FOR RANI.
--- NOTE | 2021-09-18 19:53 | NUR ---
MS RN OPENING NOTES: PATIENT IN BED WATCHING TELEVISION AT THIS TIME. A/O X 4 AND ABLE TO VERBALIZED NEEDS. PATIENT NO SOB OR CARDIAC DISTRESS NOTED, AFEBRILE. NO IV ACCESS NOTED. PATIENT AMBULATE FREQUENTLY, DENIES ANY PAIN. NO EPISODES OF HALLUCINATIONS PER PATIENT VERBALIZED. SAFETY PRECAUTIONS MAINTAINED: BED LOCKED AND IN LOWEST POSITION, SIDE RAILS UP X 2 AND CALL LIGHT IN EASY REACH FOR HELP/ASSISTANCE. WILL CONTINUE TO MONITOR.
[2021-09-18 20:00] VITALS: BP 142/79
[2021-09-18] MEDS ORDERED: INVEST MED MK-8189-008-02 MISC 1 DOSE PO SCH (20:00)
[2021-09-18 20:42] VITALS: BP 142/79
--- NOTE | 2021-09-19 06:38 | NUR ---
MS RN CLOSING NOTES: PATIENT WALKING AROUND UNIT. A/O X 4 AND ABLE TO VERBALIZED NEEDS. PATIENT NO SOB OR CARDIAC DISTRESS NOTED, AFEBRILE. NO IV ACCESS NOTED. PATIENT AMBULATE FREQUENTLY, DENIES ANY PAIN. NO EPISODES OF HALLUCINATIONS PER PATIENT VERBALIZED. SAFETY PRECAUTIONS MAINTAINED: BED LOCKED AND IN LOWEST POSITION, SIDE RAILS UP X 2 AND CALL LIGHT IN EASY REACH FOR HELP/ASSISTANCE. WILL ENDORSE CARE.
--- NOTE | 2021-09-19 07:27 | NUR ---
MS RN OPENING NOTES: RECEIVED PATIENT AWAKE A/O X 4 AND ABLE TO VERBALIZED NEEDS. PATIENT AMBULATORY. NO SOB OR CARDIAC DISTRESS NOTED, AFEBRILE. SAFETY PRECAUTIONS MAINTAINED: BED LOCKED AND IN LOWEST POSITION. CALL LIGHT IN EASY REACH FOR HELP. WILL MONITOR FOR ANY SIGNIFICANT CHANGES.KEPT RESTED AND COMFORTABLE.
[2021-09-19 09:20] VITALS: BP 108/77
--- NOTE | 2021-09-19 18:34 | NUR ---
MS RN CLOSING NOTES: PATIENT IN BED AWAKE A/O X 4 AND ABLE TO VERBALIZED NEEDS. PATIENT NO SOB OR CARDIAC DISTRESS NOTED, AFEBRILE. NO IV ACCESS NOTED. PATIENT AMBULATE FREQUENTLY, DENIES ANY PAIN. NO EPISODES OF HALLUCINATIONS PER PATIENT VERBALIZED. SAFETY PRECAUTIONS MAINTAINED: BED LOCKED AND IN LOWEST POSITION, SIDE RAILS UP X 2 AND CALL LIGHT IN EASY REACH FOR HELP/ASSISTANCE. ENDORSED TO NEXT SHIFT FOR RANI.
--- NOTE | 2021-09-19 19:00 | NUR ---
RN NOTES: RECEIVED AWAKE ON BED, SITTING COMFORTABLY, A/OX 4, VERY FRIENDLY, AMBULATORY, WATCHING TV, ORIENTED TO UNIT AND STAFF. -NO SIGN OF AGITATION OR ANY BEHAVIORAL SYMPTOMS,WILL CONTINUE TO MONITOR. -FALL AND SAFETY PRECAUTION OBSERVED.
[2021-09-19 20:00] VITALS: BP 118/77
[2021-09-19] MEDS: INVEST MED MK-8189-008-02 MISC 1 DOSE PO SCH (20:05)
--- NOTE | 2021-09-19 20:06 | NUR ---
RN NOTES: -INVESTIGATIONAL MEDICATION 2TABS+3 CAPSULES GIVEN, VERY COOPERATIVE.
--- NOTE | 2021-09-19 23:45 | NUR ---
RN NOTES: ASLEEP IN THE NIGHT, NO NEW BEHAVIOR OR ANY A/E FROM THE 1ST DOSE OF TRIAL MEDICATION GIVEN AT 1999, WILL CONTINUE TO MONITOR.
--- NOTE | 2021-09-20 06:40 | NUR ---
RN NOTES: -ASLEEP IN THE NIGHT , NO CALLS MADE, NO A/R OF MEDICATION OBSERVED, KEPT MONITORED, SHE VERBALIZED "I SLEEP SO GOOD", NO RASHES, NO BEHAVIOR,ENDORSED FOR CONTINUITY OF CARE.
--- NOTE | 2021-09-20 07:40 | NUR ---
RN OPENING NOTE PATIENT AWAKE IN BED RESTING, A/O X 3-4. NO S/S OF PAIN NOTED AT THIS TIME. ON ROOM AIR, NO DISTRESS OR SHORTNESS OF BREATH NOTED. NO IV ACCESS, PATIENT IS A CLINICAL TRIAL. FALL AND SAFETY MEASURES IN PLACE, BED IN LOW AND LOCK POSITION, CALL LIGHT AND TABLE WITHIN EASY REACH, SIDE RAILS UP X2. WILL CONTINUE TO MONITOR.
[2021-09-20 08:00] VITALS: BP 107/73
--- NOTE | 2021-09-20 18:37 | NUR ---
RN CLOSING NOTE PATIENT AWAKE IN BED RESTING, A/O X 3-4. NO S/S OF PAIN NOTED AT THIS TIME. ON ROOM AIR, NO DISTRESS OR SHORTNESS OF BREATH NOTED. NO IV ACCESS, PATIENT IS A CLINICAL TRIAL. FALL AND SAFETY MEASURES IN PLACE, BED IN LOW AND LOCK POSITION, CALL LIGHT AND TABLE WITHIN EASY REACH, SIDE RAILS UP X2. WILL ENDORSE TO CORPORATE LAW SPECIALIST.
--- NOTE | 2021-09-20 19:52 | NUR ---
RN OPENING NOTES: RECEIVED PATIENT AWAKE IN BED, BED IN LOW POSITION CALL LIGHTS WITHIN REACH, NO COMPLAIN OF PAIN AND DISCOMFORT AT THIS TIME ON ROOM AIR SATURATING WELL, ON CLINICAL TRIAL, AMBULATORY ABLE TO MAKE NEEDS KNOWN, NO CHANGESIN BEHAVIOR WAS OBSERVED, WILL CONTINUE TO MONITOR.
[2021-09-20] MEDS: INVEST MED MK-8189-008-02 MISC 1 DOSE PO SCH (20:03)
[2021-09-20 23:40] VITALS: BP 102/47
--- NOTE | 2021-09-21 06:08 | NUR ---
RN CLOSING NOTES: PATIENT SLEEP IN BED COMFORTABLY, BED IN LOW POSITION CALL LIGHTS WITHIN REACH, NO COMPLAIN OF PAIN AND DISCOMFORT AT THIS TIME, PATIENT IS A/OX4 AMBULATORY ABLE TO MAKE NEEDS KNOWN, PATIENT ON CLINICAL TRIAL NO CHANGES IN BEHAVIOR HAS BEEN OBSERVED, KEPT CLEAN AND DRY ALL NEEDS MET ENDORSE TO INCOMING SHIFT.
--- NOTE | 2021-09-21 07:30 | NUR ---
MS RN OPENING NOTES: RECEIVED PATIENT AWAKE IN BED. A/O X 4 AND ABLE TO VERBALIZED NEEDS. PATIENT AMBULATORY. NO SOB OR CARDIAC DISTRESS NOTED ON ROOM AIR AND TOLERATING WELL. SAFETY PRECAUTIONS MAINTAINED: BED LOCKED AND IN LOWEST POSITION. CALL LIGHT IN EASY REACH FOR HELP. WILL MONITOR FOR ANY SIGNIFICANT CHANGES.
[2021-09-21 08:00] VITALS: BP 115/64
[2021-09-21 16:51] VITALS: BP 139/69
--- NOTE | 2021-09-21 18:58 | NUR ---
MS RN CLOSING NOTES: PATIENT AWAKE IN BED. A/O X 4 AND ABLE TO VERBALIZED NEEDS. PATIENT AMBULATORY. NO SOB OR CARDIAC DISTRESS NOTED ON ROOM AIR AND TOLERATING WELL. NO EPISODES OF HALLUCINATION OR DEPRESSION. SAFETY PRECAUTIONS MAINTAINED: BED LOCKED AND IN LOWEST POSITION. CALL LIGHT IN EASY REACH FOR HELP. WILL MONITOR FOR ANY SIGNIFICANT CHANGES. ENDORSED TO LYE PEEL OPERATOR NURSE FOR RANI.
--- NOTE | 2021-09-21 19:30 | NUR ---
MS RN OPENING NOTES RECEIVED PATIENT IN BED AWAKE, ALERT AND ORIENTED X3-4. DENIES ANY PAIN OR DISCOMFORT AT THIS TIME. ON ROOM AIR; WELL TOLERATED. NOT IN ANY FORM OF RESPIRATORY DISTRESS. NO IV ACCESS. PATIENT IS A CLINICAL TRIAL. SAFETY AND FALL MEASURES IMPLEMENTED: BED IN LOWEST LOCKED POSITION, CALL LIGHT AND TABLE WITHIN EASY REACH, SIDE RAILS UP X2. WILL CONTINUE TO MONITOR.
[2021-09-21 20:00] VITALS: BP 109/69
[2021-09-21] MEDS: INVEST MED MK-8189-008-02 MISC 1 DOSE PO SCH (20:18)
--- NOTE | 2021-09-22 06:57 | NUR ---
MS RN CLOSING NOTES: PATIENT IS AWAKE; LAYING COMFORTABLY IN BED. BREATHING IS EVEN AND NONLABORED. NO COMPLAINTS OF PAIN AND DISCOMFORT AT THIS TIME. ABLE TO MAKE NEEDS KNOWN. PATIENT IS ON CLINICAL TRIAL. NO CHANGES IN BEHAVIOR OBSERVED. SAFETY MEASURES IN PLACE. ENDORSED TO MORNING SHIFT FOR CONTINUITY OF CARE.
--- NOTE | 2021-09-22 07:22 | NUR ---
MS RN OPENING NOTES RECEIVED PATIENT RESTING IN HER BED. A/O X3-4. ABLE TO MAKE NEEDS KNOWN, DENIES ANY PAIN OR DISCOMFORT AT THIS TIME. ON ROOM AIR; WELL TOLERATED. NOT IN ANY FORM OF RESPIRATORY DISTRESS. PT HAS NO IV ACCESS PER CT PROTOCOL. SAFETY MEASURES MAINTAINED: BED IN LOWEST LOCKED POSITION, CALL LIGHT AND TRAY TABLE WITHIN EASY REACH OF PT, SIDE RAILS UP X2. WILL CONTINUE TO MONITOR.
[2021-09-22 08:00] VITALS: BP 114/66
[2021-09-22 16:08] VITALS: BP 121/72
--- NOTE | 2021-09-22 18:39 | NUR ---
MS RN CLOSING NOTES PATIENT RESTING IN HER BED AT THIS TIME. A/O X3-4. ABLE TO MAKE NEEDS KNOWN. AMBULATORY WITH STEADY GAIT. ON ROOM AIR, WELL TOLERATED WITH NO SOB NOTED DURING SHIFT. PT HAS NO IV ACCESS PER CT PROTOCOL. PT HAS NO BEHAVIORAL ISSUES NOTED DURING DAY. ALL NEEDS ATTENDED WELL. SAFETY MEASURES KEPT IN PLACED: BED IN LOWEST LOCKED POSITION, CALL LIGHT AND TRAY TABLE WITHIN EASY REACH OF PT, SIDE RAILS UP X2. WILL ENDORSE RANI TO ANIMAL TECH NURSE.
[2021-09-22 20:00] VITALS: BP 114/75
[2021-09-22] MEDS: INVEST MED MK-8189-008-02 MISC 1 DOSE PO SCH (20:05)
--- NOTE | 2021-09-23 02:40 | NUR ---
RN OPENING NOTES RECEIVED PT IN BED, AWAKE, WATCHING TV. AOx4, ABLE TO MAKE NEEDS KNOWN. ON RA AND TOLERATING WELL. NO SOB NOTED. NO S/SX OF RESPIRATORY DISTRESS NOTED. CLINICAL TRIAL PATIENT. NO IV ACCESS. SAFETY PRECAUTIONS IN PLACE: BED IN LOWEST, LOCKED POSITION, SIDERAILS UPx2, AND BRAKES ON. TABLE AND CALL LIGHT WITHIN REACH. WILL CONTINUE TO MONITOR. Addendum: 09/23/21 at 0241 by NAKUL MALDONADO RN TIME SHOULD BE AT 1930.
--- NOTE | 2021-09-23 06:45 | NUR ---
RN CLOSING NOTES PT IN ROOM, AWAKE. AOx4, ABLE TO MAKE NEEDS KNOWN. ON RA AND TOLERATING WELL. NO SOB NOTED. NO S/SX OF RESPIRATORY DISTRESS NOTED. CLINICAL TRIAL PATIENT. NO IV ACCESS. ALL ORDERS CARRIED OUT. ALL NEEDS MET. PT KEPT CLEAN AND DRY. ADMINISTERED INVESTIGATIONAL MED PER MD ORDER. SAFETY PRECAUTIONS IN PLACE: BED IN LOWEST, LOCKED POSITION, SIDERAILS UPx2, AND BRAKES ON. TABLE AND CALL LIGHT WITHIN REACH. WILL ENDORSE TO ONCOMING SHIFT FOR RANI.
--- NOTE | 2021-09-23 07:30 | NUR ---
RN MS NOTES PT IN BED, AWAKE, ALERT AND ORIENTED, EATING HER BREAKFAST, NO COMPLAINT OF PAIN OR ANY DISCOMFORT, NOT IN DISTRESS, NO BEHAVIOR PROBLEM NOTED.
[2021-09-23 08:00] VITALS: BP 117/78
[2021-09-23 16:00] VITALS: BP 115/71
--- NOTE | 2021-09-23 18:55 | NUR ---
RN CLOSING NOTES. PATIENT A/O X4. AMBULATES ON UNIT WELL. NO S/SX OF SOB. NO C/O PAIN OR DISTRESS. REMAINED ROOM THROUGHOUT SHIFT. REMAINS ON CLINICAL TRIAL. SAFETY PRECAUTIONS CONTINUE IN PLACE WITH BED IN LOWEST POSITION, LOCKED AND SIDERAIL UP X2. CALL LIGHT WITHIN REACH. WILL CONTINUE TO MONITOR.
--- NOTE | 2021-09-23 19:10 | NUR ---
RN opening notes Received Pt in the room sitting in bed comfortably listening to music. Pt is alert and orientedX4. Pt is clinical trial. On room air. No SOB. No S/S of distress noted. No IV sites. Safety precautions is maintained. Bed at low position, brakes locked, side rails upX2, hob elevated and call light is within reach. Will continue to monitor.
[2021-09-23] MEDS: INVEST MED MK-8189-008-02 MISC 1 DOSE PO SCH (19:58)
[2021-09-23 20:00] VITALS: BP 123/95
--- NOTE | 2021-09-24 06:57 | NUR ---
RN closing notes Pt is resting in bed comfortably. Pt is alert and orientedX4. On room air. No SOB. No S/S of distress noted. VS is stable. Kept Pt clean, dry and comfortable. Safety precautions is maintained. Bed at low position, brakes locked, side rails upX2, hob elevated and call light is within reach. Will endorse to am nurse for RANI.
[2021-09-24 08:00] VITALS: BP_SYST 115; BP_SYST 99; BP_DIAS 64; BP_DIAS 70
[2021-09-24 16:00] VITALS: BP_SYST 114; BP_SYST 122; BP_DIAS 60; BP_DIAS 79
--- NOTE | 2021-09-24 18:52 | NUR ---
MS RN CLOSING NOTES: PATIENT AWAKE IN BED WATCHING TELEVISION AT THIS TIME. A/O X 4 AND ABLE TO VERBALIZED NEEDS. PATIENT AMBULATORY. NO SOB OR CARDIAC DISTRESS NOTED ON ROOM AIR AND TOLERATING WELL. NO EPISODES OF HALLUCINATION OR DEPRESSION. NO STRANGE OR ANY BEHAVIORAL CHANGES. SAFETY PRECAUTIONS MAINTAINED: BED LOCKED AND IN LOWEST POSITION. CALL LIGHT IN EASY REACH FOR HELP. WILL MONITOR FOR ANY SIGNIFICANT CHANGES. ENDORSED TO PRUNER NURSE FOR RANI.
--- NOTE | 2021-09-24 19:10 | NUR ---
RN opening notes Pt is resting in bed comfortably. Pt is alert and orientedX4. Pt is clinical trial. On room air. No SOB. No S/S of distress noted. No IV sites. Safety precautions is maintained. Bed at low position, brakes locked, side rails upX2, hob elevated and call light is within reach. Will continue to monitor.
[2021-09-24 20:00] VITALS: BP 109/52
[2021-09-24] MEDS: INVEST MED MK-8189-008-02 MISC 1 DOSE PO SCH (20:07)
--- NOTE | 2021-09-25 06:40 | NUR ---
RN closing notes Pt is resting in bed comfortably. Pt is alert and orientedX4. Pt is a clinical trial. On room air. No SOB. No S/S of distress noted. VS is stable. Kept Pt clean, dry and comfortable. All needs met and attended. Safety precautions is maintained. Bed at low position, brakes locked, side rails upX2, hob elevated and call light is within reach. Will endorse to am nurse for RANI.
--- NOTE | 2021-09-25 07:30 | NUR ---
MS RN OPENING NOTES RECEIVED PATIENT AWAKE IN BED. A/O X 4 AND ABLE TO VERBALIZED NEEDS. PATIENT AMBULATORY. NO SOB OR CARDIAC DISTRESS NOTED ON ROOM AIR AND TOLERATING WELL. SAFETY PRECAUTIONS MAINTAINED: BED LOCKED AND IN LOWEST POSITION. CALL LIGHT IN EASY REACH FOR HELP. WILL MONITOR FOR ANY SIGNIFICANT CHANGES.
[2021-09-25 08:18] VITALS: BP 112/66
[2021-09-25 15:45] VITALS: BP 118/90
--- NOTE | 2021-09-25 19:00 | NUR ---
MS RN CLOSING NOTES PATIENT IS AWAKE IN BED. A/O X 4 AND ABLE TO VERBALIZED NEEDS. PATIENT AMBULATORY. NO SOB OR CARDIAC DISTRESS NOTED ON ROOM AIR AND TOLERATING WELL. SAFETY PRECAUTIONS MAINTAINED: BED LOCKED AND IN LOWEST POSITION. CALL LIGHT IN EASY REACH FOR HELP. WILL ENDORSE TO INCOMING SHIFT FOR RANI.
--- NOTE | 2021-09-25 19:31 | NUR ---
MS RN OPENING NOTES: RECEIVED PATIENT AWAKE IN BED. A/O X 4 AND ABLE TO VERBALIZED NEEDS. PATIENT AMBULATORY. NO SOB/DISTRESS NOTED ON ROOM AIR AND TOLERATING WELL. SAFETY MEASURE IN PLACE.CALL LIGHT IN EASY REACH FOR HELP. WILL MONITOR FOR ANY SIGNIFICANT CHANGES.
[2021-09-25] MEDS: INVEST MED MK-8189-008-02 MISC 1 DOSE PO SCH (19:54)
[2021-09-25 20:00] VITALS: BP 116/70
--- NOTE | 2021-09-26 06:41 | NUR ---
MS RN CLOSING NOTES PATIENT AWAKE IN BED. A/O X 4 AND ABLE TO VERBALIZED NEEDS. PATIENT AMBULATORY. NO SOB/DISTRESS NOTED ON ROOM AIR AND TOLERATING WELL.ALL DUE MEDS GIVEN.NO BEHAVIORAL CHANGES DURING SHIFT. SAFETY MEASURE IN PLACE.CALL LIGHT IN EASY REACH FOR HELP. WILL ENDORSED TO NEXT SHIFT.
--- NOTE | 2021-09-26 07:30 | NUR ---
RN OPENING NOTES RECEIVED PATIENT IN ROOM. AWAKE, A/O X4, NO SIGNS OF ACUTE DISTRESS NOTED. ON ROOM AIR, TOLERATING WELL. NO SOB NOTED. REMAINS ON CLINICAL TRIAL. NO IV ACCESS. WILL CONTINUE TO MONITOR FOR ADVERSE REACTION FROM INVESTIGATIONAL MEDS. WILL CONTINUE TO MONITOR PATIENT.
--- NOTE | 2021-09-26 18:41 | NUR ---
RN CLOSING NOTES PATIENT IN BED, WATCHING TV. NO SIGNS OF ACUTE DISTRESS NOTED. REMAINS ON CLINICAL TRIAL. NO IV ACCESS. NO UNTOWARD BEHAVIOR NOTED THROUGHOUT THE SHIFT. INDEPENDENT WITH ADLS. SAFETY MEASURE IN PLACE. WILL ENDORSE TO NEXT SHIFT FOR CONTINUITY OF CARE.
[2021-09-26 20:00] VITALS: BP_SYST 106; BP_SYST 108; BP_DIAS 65; BP_DIAS 71
[2021-09-26] MEDS: INVEST MED MK-8189-008-02 MISC 1 DOSE PO SCH (20:16)
--- NOTE | 2021-09-27 07:00 | NUR ---
MS RN OPENING NOTES PATIENT LAYING IN BED, A/O X 4, ABLE TO MAKE NEEDS KNOWN. TOLERATING WELL ON ROOM AIR WITH NO S/S RESPIRATORY DISTRESS. NO COMPLAINTS OF PAIN OR DISCOMFORT AT THIS TIME. CLINICAL TRIAL. SAFETY MEASURES IN PLACE: BED IN LOWEST LOCKED POSITION, SIDE RAILS UP X2, CALL LIGHT WITHIN REACH. WILL CONTINUE TO MONITOR.
--- NOTE | 2021-09-27 19:00 | NUR ---
MS RN CLOSING NOTES PATIENT LAYING IN BED, A/O X 4, ABLE TO MAKE NEEDS KNOWN. TOLERATING WELL ON ROOM AIR WITH NO S/S RESPIRATORY DISTRESS. NO COMPLAINTS OF PAIN OR DISCOMFORT AT THIS TIME. CLINICAL TRIAL. SAFETY MEASURES IN PLACE: BED IN LOWEST LOCKED POSITION, SIDE RAILS UP X2, CALL LIGHT WITHIN REACH. ALL NEEDS MET. WILL ENDORSE TO FLEA MARKET SELLER FOR RANI.
--- NOTE | 2021-09-27 19:41 | NUR ---
MS RN NOTE RECEIVED PATIENT AMBULATING AROUND UNIT DURING RANI REPORT. NO S/S OF APPARENT DISTRESS. NO C/O ANY PAIN NOR DISCOMFORT. REMINDED OF PATIENT'S MEDICATION @1999. PATIENT ACKNOWLEDGED. WILL CONTINUE WITH CARE PLAN.
[2021-09-27 20:00] VITALS: BP 92/96
[2021-09-27] MEDS: INVEST MED MK-8189-008-02 MISC 1 DOSE PO SCH (20:09)
--- NOTE | 2021-09-28 06:45 | NUR ---
MS RN CLOSING NOTE PATIENT IN BED WITH EYES CLOSED, EASY TO AROUSE. NO S/S OF APPARENT DISTRESS IN ROOM AIR. NO C/O PAIN NOR DISCOMFORT AT THIS TIME. NEEDS ATTENDED. DID NOT EXHIBIT ANY BEHAVIORAL CHANGES. NO SIGNIFICANT CHANGE ON MY SHIFT. WILL ENDORSE TO MORNING SHIFT RN FOR CONTINUITY OF CARE.
--- NOTE | 2021-09-28 07:38 | NUR ---
RN OPENING NOTE- PATIENT IN BED, A/O X 4, ABLE TO MAKE NEEDS KNOWN. TOLERATING WELL ON ROOM AIR WITH NO S/S RESPIRATORY DISTRESS. NO COMPLAINTS OF PAIN OR DISCOMFORT AT THIS TIME. CLINICAL TRIAL. SAFETY MEASURES IN PLACE: BED IN LOWEST LOCKED POSITION, SIDE RAILS UP X2, CALL LIGHT WITHIN REACH. WILL CONTINUE TO MONITOR / ASSIST
[2021-09-28 20:00] VITALS: BP 119/62
[2021-09-28] MEDS: INVEST MED MK-8189-008-02 MISC 1 DOSE PO SCH (20:21)
--- NOTE | 2021-09-29 07:15 | NUR ---
RN OPENING NOTES RECEIVED PATIENT IN BED. AWAKE, A/O X4, NO SIGNS OF ACUTE DISTRESS NOTED. ON ROOM AIR, TOLERATING WELL. NO SOB NOTED. REMAINS ON CLINICAL TRIAL. NO IV ACCESS. WILL CONTINUE TO MONITOR FOR ADVERSE REACTION FROM INVESTIGATIONAL MEDS. WILL CONTINUE TO MONITOR PATIENT.
--- NOTE | 2021-09-29 07:18 | NUR ---
ms rn note NEEDS ATTENDED. REPORT GIVEN TO CATHRYN FOR CONTINUITY OF CARE.
[2021-09-29 08:00] VITALS: BP 109/82
--- NOTE | 2021-09-29 18:53 | NUR ---
RN CLOSING NOTES PATIENT IN BED, AWAKE, A/O X4, NO SIGNS OF ACUTE DISTRESS NOTED. STABLE ON ROOM AIR, BREATHING EVEN AND UNLABORED. REMAINS ON CLINICAL TRIAL. NO IV ACCESS. NO UNTOWARD BEHAVIOR NOTED THROUGHOUT THE SHIFT. INDEPENDENT WITH ADLS. SAFETY MEASURE IN PLACE. WILL ENDORSE TO NEXT SHIFT FOR CONTINUITY OF CARE.
--- NOTE | 2021-09-29 19:10 | NUR ---
RECEIVED REPORTS FROM THE DAYSHIFT RN, PATIENT IS NOT IN THE ROOM.
[2021-09-29 20:00] VITALS: BP 135/90
[2021-09-29] MEDS: INVEST MED MK-8189-008-02 MISC 1 DOSE PO SCH (20:11)
--- NOTE | 2021-09-29 20:21 | NUR ---
PATIENT CAME BACK TO HER ROOM, AWAKE, HAPPY. A/O X4. NO S/S OF DISTRESS NOTED. NO COMPLAIN OF PAIN. CALL LIGHT WITHIN REACH. BED IN LOWEST AND LOCKED POSITION.
--- NOTE | 2021-09-30 07:35 | NUR ---
RN OPENING NOTE PATIENT AWAKE IN BED RESTING, A/O X 4. NO S/S OF PAIN NOTED AT THIS TIME. ON ROOM AIR, NO DISTRESS OR SHORTNESS OF BREATH NOTED. NO IV ACCESS, PATIENT IS A CLINICAL TRIAL. FALL AND SAFETY MEASURES IN PLACE, BED IN LOW AND LOCK POSITION, CALL LIGHT AND TABLE WITHIN EASY REACH, SIDE RAILS UP X2. WILL CONTINUE TO MONITOR.
[2021-09-30 16:01] VITALS: BP 119/77
--- NOTE | 2021-09-30 18:36 | NUR ---
RN CLOSING NOTE PATIENT AWAKE IN BED RESTING, A/O X 4. NO S/S OF PAIN NOTED AT THIS TIME. ON ROOM AIR, NO DISTRESS OR SHORTNESS OF BREATH NOTED. NO IV ACCESS, PATIENT IS A CLINICAL TRIAL. FALL AND SAFETY MEASURES IN PLACE, BED IN LOW AND LOCK POSITION, CALL LIGHT AND TABLE WITHIN EASY REACH, SIDE RAILS UP X2. WILL ENDORSE TO CONSULTING SME.
--- NOTE | 2021-09-30 19:15 | NUR ---
MS RN OPENING NOTES RECEIVED PATIENT IN BED AWAKE, ALERT AND ORIENTED X4. DENIES ANY PAIN OR DISCOMFORT AT THIS TIME. ON ROOM AIR; TOLERATING WELL. NOT IN ANY FORM OF RESPIRATORY DISTRESS. NO IV ACCESS. PATIENT IS A CLINICAL TRIAL. SAFETY AND FALL MEASURES IMPLEMENTED: BED IN LOWEST LOCKED POSITION, CALL LIGHT AND TABLE WITHIN EASY REACH, SIDE RAILS UP X2. WILL CONTINUE TO MONITOR.
[2021-09-30 20:00] VITALS: BP 120/76
[2021-09-30] MEDS: INVEST MED MK-8189-008-02 MISC 1 DOSE PO SCH (20:01)
--- NOTE | 2021-10-01 06:57 | NUR ---
MS RN CLOSING NOTES: PATIENT IS AWAKE; LAYING COMFORTABLY IN BED, A/O X4. BREATHING IS EVEN AND NONLABORED. NO COMPLAINTS OF PAIN AND DISCOMFORT AT THIS TIME. ABLE TO MAKE NEEDS KNOWN. PATIENT IS ON CLINICAL TRIAL. NO CHANGES IN BEHAVIOR OBSERVED. SAFETY MEASURES IN PLACE. ENDORSED TO MORNING SHIFT FOR CONTINUITY OF CARE.
--- NOTE | 2021-10-01 07:29 | NUR ---
MS RN OPENING NOTE RECEIVED PT IN BED ASLEEP, EASILY AROUSED. A/O X4, ABLE TO MAKE NEEDS KNOWN. ON RA, TOLERATING WELL. BREATHING UNLABORED, NOT IN ANY SIGN OF RESPIRATORY DISTRESS. PT HAS NO IV ACCESS. PT IS ON CRITICAL TRIAL. SAFETY MEASURES IN PLACE: BED IN LOWEST AND LOCKED POSITION, SIDE RAILS UP X2, AND CALL LIGHT WITHIN REACH. WILL CONTINUE TO MONITOR PT.
[2021-10-01 16:14] VITALS: BP 122/76
--- NOTE | 2021-10-01 19:00 | NUR ---
RN OPENING NOTES: AWAKE ALERT AND ORIENTATED x$ AMBULATING IN THE ROOM SMILING
--- NOTE | 2021-10-01 19:42 | NUR ---
MS RN CLOSING NOTE PT IN BED ASLEEP, EASILY AROUSED. A/O X4, ABLE TO MAKE NEEDS KNOWN. ON RA, TOLERATING WELL. BREATHING UNLABORED, NOT IN ANY SIGN OF RESPIRATORY DISTRESS. PT HAS NO IV ACCESS. PT IS ON CLINICAL TRIAL. SAFETY MEASURES IN PLACE: BED IN LOWEST AND LOCKED POSITION, SIDE RAILS UP X2, AND CALL LIGHT WITHIN REACH. ENDORSED TO LICENSED PSYCHIATRIC TECHNICIAN NURSE FOR RANI.
[2021-10-01 20:00] VITALS: BP 145/85
[2021-10-01] MEDS: INVEST MED MK-8189-008-02 MISC 1 DOSE PO SCH (20:09)
--- NOTE | 2021-10-02 04:20 | NUR ---
CLOSING RN NOTES:ALERT AND ORIENTATED X4 AMBULATES IN THE ROOM WENT TOT BED 21;30 ATIVAN AND IRKKI HELD LAST NIGHT ORDERED VERBALIZES HER NEEDED
[2021-10-02] MEDS ORDERED: LORAZEPAM 1 MG TABLET FOR AGITATION PO PRN (12:00)
[2021-10-02] MEDS ORDERED: ZOLPIDEM TARTRATE 10 MG TABLET PO PRN (12:00)
--- NOTE | 2021-10-02 18:37 | NUR ---
RN CLOSING NOTE- UNREMARKABLE SHIFT, NEEDS ATTENDED, INTERACTIVE, PATIENT IN ROOM, A/O X 4. TOLERATING WELL ON ROOM AIR WITH NO S/S RESPIRATORY DISTRESS. NO COMPLAINTS OF PAIN OR DISCOMFORT AT THIS TIME. CLINICAL TRIAL. SAFETY MEASURES IN PLACE: BED IN LOWEST LOCKED POSITION, SIDE RAILS UP X2, CALL LIGHT WITHIN REACH. WILL CONTINUE TO MONITOR / ASSIST
--- NOTE | 2021-10-02 19:30 | NUR ---
MS RN NOTES/CLINICAL TRIAL RECEIVED LAYING COMFORTABLY ON BED,WATCHING TV PROGRAM,BREATHING REGULAR,NOT IN ANY FORM OF DISTRESS,CONVERSANT,DENIES DISCOMFORTS AT THE MOMENT,FOLLOW INSTRUCTIONS,CALL LIGHT IN REACH,NEEDS ANTICIPATED.
[2021-10-02 20:00] VITALS: BP_SYST 143; BP_DIAS 65; BP_DIAS 69
[2021-10-02] MEDS: INVEST MED MK-8189-008-02 MISC 1 DOSE PO SCH (20:00)
--- NOTE | 2021-10-02 22:00 | NUR ---
MS RN NOTES INVESTIGATIONAL DRUG ADMINISTERED,TAKEN WELL
--- NOTE | 2021-10-03 06:45 | NUR ---
MS RN NOTES WENT DOWN TO SMOKE.
--- NOTE | 2021-10-03 06:46 | NUR ---
MS RN NOTES SLEPT WELL AT NIGHT,COOPERATIVE AND FOLLOW INSTRUCTION,MED COMPLIANT.IN NO ACUTE DISTRESS.
[2021-10-03 08:00] VITALS: BP 117/68
[2021-10-03 16:00] VITALS: BP 117/68
[2021-10-03 20:00] VITALS: BP 121/67
[2021-10-03] MEDS: INVEST MED MK-8189-008-02 MISC 1 DOSE PO SCH (20:00)
--- NOTE | 2021-10-04 06:36 | NUR ---
MS/TELE/RN PATIENT IS AWAKE, SITTING AT EDGE OF BED, NO SIGNS OF DISTRESS NOTED, ALL NEEDS ATTENDED AT THIS TIME, WILL CONTINUE TO MONITOR.
--- NOTE | 2021-10-04 07:30 | NUR ---
MS RN OPENING NOTES RECEIVED PATIENT IN BED, A/O X 4, ABLE TO MAKE NEEDS KNOWN. TOLERATING WELL ON ROOM AIR WITH NO S/S RESPIRATORY DISTRESS. NO COMPLAINTS OF PAIN OR DISCOMFORT AT THIS TIME. CLINICAL TRIAL. SAFETY MEASURES IN PLACE: BED IN LOWEST LOCKED POSITION, SIDE RAILS UP X2, CALL LIGHT WITHIN REACH. WILL CONTINUE TO MONITOR FOR RANI.
[2021-10-04 08:00] VITALS: BP 113/70
[2021-10-04 16:00] VITALS: BP 113/92
--- NOTE | 2021-10-04 19:37 | NUR ---
MS RN OPENING NOTE RECEIVED PATIENT AWAKE IN BED. A/O X 4 AND ABLE TO MAKE NEEDS KNOWN. PT STABLE ON ROOM AIR. NO S/S OF SOB OR RESPIRATORY DISTRESS. NO COMPLAINTS OF PAIN OR DISCOMFORT AT THIS TIME. NO IV ACCESS DUE TO CLINICAL TRIAL STATUS. SAFETY PRECAUTIONS IN PLACE. BED IN LOWEST LOCKED POSITION, HOB ELEVATED, SIDE RAILS UP X2, AND CALL LIGHT AND TABLE WITHIN REACH. ALL NEEDS MET AT THIS TIME.
--- NOTE | 2021-10-04 19:49 | NUR ---
MS RN CLOSING NOTES PATIENT IN BED, A/O X 4, ABLE TO MAKE NEEDS KNOWN. TOLERATING WELL ON ROOM AIR WITH NO S/S RESPIRATORY DISTRESS. NO COMPLAINTS OF PAIN OR DISCOMFORT AT THIS TIME. CLINICAL TRIAL. SAFETY MEASURES IN PLACE: BED IN LOWEST LOCKED POSITION, SIDE RAILS UP X2, CALL LIGHT WITHIN REACH. WILL ENDORSE TO INCOMING SHIFT FOR RANI.
[2021-10-04 20:00] VITALS: BP 142/60
[2021-10-04] MEDS: INVEST MED MK-8189-008-02 MISC 1 DOSE PO SCH (20:15)
--- NOTE | 2021-10-05 06:53 | NUR ---
MS RN CLOSING NOTE PATIENT AWAKE IN BED. A/O X 4 AND ABLE TO MAKE NEEDS KNOWN. PT STABLE ON ROOM AIR. NO S/S OF SOB OR RESPIRATORY DISTRESS. NO COMPLAINTS OF PAIN OR DISCOMFORT AT THIS TIME. NO IV ACCESS DUE TO CLINICAL TRIAL STATUS. ALL DUE MEDS GIVEN ORDERED. SAFETY PRECAUTIONS IN PLACE AT ALL TIMES. BED IN LOWEST LOCKED POSITION, HOB ELEVATED, SIDE RAILS UP X2, AND CALL LIGHT AND TABLE WITHIN REACH. ALL NEEDS MET AT THIS TIME AND WILL ENDORSE TO ONCOMING NURSE FOR RANI.
[2021-10-05 20:00] VITALS: BP 122/89
[2021-10-05] MEDS: INVEST MED MK-8189-008-02 MISC 1 DOSE PO SCH (20:11)
--- NOTE | 2021-10-06 08:06 | NUR ---
RN OPENING NOTE PATIENT RECEIVED IN BED, AO X 4, ABLE TO RESPONDS ALL STIMULI. IN NO SI/HI OBSERVED, ALSO IN NO ACUTE DISTRESS NOTED. RESPIRATORY EVEN AND UNLABORED ON ROOM AIR. SKIN IS WARM TO TOUCH, KEEP CLEAN/DRY. KEPT ELEVATED HOB FOR ENSURE AIRWAY AND ASPIRATION PRECAUTION, ALSO LOWEST POSITION OF THE BED, S/R UP X 3, BED ALARM IS ON AT ALL THE TIMES. ALL SAFETY PRECAUTION APPLIED. CALL LIGHT WITHIN REACH, WILL CONTINUE TO MONITOR.
--- NOTE | 2021-10-06 18:50 | NUR ---
RN CLOSING NOTE PATIENT IN BED SLEEPING, AO X 4, PRESENT. IN NO ACUTE DISTRESS NOTED. RESPIRATORY EVEN AND UNLABORED ON ROOM AIR. SKIN IS WARM TO TOUCH, KEEP CLEAN/DRY. KEPT ELEVATED HOB FOR ENSURE AIRWAY AND ASPIRATION PRECAUTION, BED IN LOWEST POSITION AND LOCK. BED ALARM IS ON AT ALL THE TIMES. SAFETY MEASURED IN PLACED. CALL LIGHT WITHIN REACH, WILL ENDORSED TO NEXT SHIFT.
[2021-10-06] MEDS: INVEST MED MK-8189-008-02 MISC 1 DOSE PO SCH (19:59)
[2021-10-06 20:00] VITALS: BP 124/63
--- NOTE | 2021-10-07 07:30 | NUR ---
RN OPENING NOTE PATIENT RECEIVED IN BED, AO X4. RESPONDS WELL TO VERBAL STIMULI AND NAME CALL. NO VISUAL S/SX OF DISTRESS. NO C/O PAIN OR SOB. BREATHING UNLABORED AND WNL. PATIENT ABLE TO VERBALIZE ALL NEEDS AND AMBULATE WELL W/OUT ASSISTANCE. SAFETY MEASURS IN [facility] WITH BED IN LOWEST POSITION AND LOCKED. SIDERAILS UP X2, AND CALL LIGHT WITHIN REACH. WILL CONT TO MONITOR..
[2021-10-07 16:00] VITALS: BP 122/91
--- NOTE | 2021-10-07 18:57 | NUR ---
RN CLOSING NOTE PATIENT OBSERVED THROUGHOUT SHIFT UP AND AMBULATORY THROUGHOUT UNIT. AO X4. WITH NO S/SX OF DISTRESS OR C/O SOB OR PAIN. REMAINS ON CLINICAL TRIAL STATUS. PATIENT ABLE TO VERBALIZE ALL NEEDS AND AMBULATE WELL W/OUT ASSISTANCE. SAFETY MEASURES REMAIN IN PLACE WITH BED IN LOWEST POSITION AND LOCKED. SIDERAILS UP X2, AND CALL LIGHT WITHIN REACH. WILL CONT TO MONITOR..
--- NOTE | 2021-10-07 19:30 | NUR ---
MS RN OPENING PATIENT IN ROOM DURING RANI REPORT. PATIENT A/OX4. NO S/S OF APPARENT DISTRESS AND NO C/O PAIN. WILL CONTINUE WITH PATIENT'S CARE PLAN.
[2021-10-07 20:00] VITALS: BP 124/82
[2021-10-07] MEDS: INVEST MED MK-8189-008-02 MISC 1 DOSE PO SCH (20:00)
--- NOTE | 2021-10-08 06:52 | NUR ---
MS RN CLOSING NOTE PATIENT IN ROOM AT THIS TIME. A/OX4. NO S/S OF APPARENT DISTRESS. NO C/O PAIN. DID NOT EXHIBIT ANY PSYCH INSTABILITY, AKATHISIA, NOR TREMORS THROUGHOUT SHIFT. WILL ENDORSE TO MORNING SHIFT RN FOR CONTINUITY OF CARE.
--- NOTE | 2021-10-08 08:29 | NUR ---
MS RN OPENING NOTE Patient in bed, awake. A/O x 3, able to make needs known. On room air, breathing evenly and unlabored. No SOB or s/s of distress noted. No IV access due to clinical trial status. Denies any pain or discomfort at this time. Safety precautions in place: bed in low, locked position; siderails up x 2; call [id number] within reach. Will continue to monitor.
--- NOTE | 2021-10-08 18:59 | NUR ---
MS RN CLOSING NOTES PATIENT RECEIVED AWAKE , A/O X 4 , AMBULATORY AND NO SOB OR DISTRESS NOTED , CONTINUE ON CT , MEDS TO HOLD @2200 LORAZEPAM AND AMBIEN ALL NEED ATTENDED TO , NO IV ACCESS DUE TO CT STATUS, SAFETY PRECAUTIONS PROVIDED , ENDORSED TO NEXT SHIFT
--- NOTE | 2021-10-08 19:10 | NUR ---
RN NOTES RECEIVED REPORT FROM MORNING RN. PATIENT IN BED A/O X4 ABLE TO MAKE NEEDS KNOWN. ON RA SATING 97%. NO SOB NO DISTRESS NOTED. ALL SAFETY MEASURES IN PLACE AT ALL TIMES. BED ON LOWEST POSITION AND LOCKED. WILL CLOSELY MONITOR THE PATIENT
[2021-10-08 20:00] VITALS: BP 127/72
[2021-10-08] MEDS: INVEST MED MK-8189-008-02 MISC 1 DOSE PO SCH (20:39)
--- NOTE | 2021-10-09 06:50 | NUR ---
RN NOTES PATIENT REMAINS STABLE NO SIGNIFICANT CHANGES IN HEALTH CONDITION. DUE MEDS GIVE ORDERD. ALL SAFETY MEASURES IN PLACE. CALL LIGHT WITHIN REACH. WILL ENDORSED TO MORNING SHIFT FOR RANI
--- NOTE | 2021-10-09 07:29 | NUR ---
RN OPENING NOTE PATIENT IN BED, A/O X 4, ABLE TO MAKE NEEDS KNOWN. TOLERATING WELL ON ROOM AIR WITH NO S/S RESPIRATORY DISTRESS. NO COMPLAINTS OF PAIN OR DISCOMFORT AT THIS TIME. CLINICAL TRIAL. SAFETY MEASURES IN PLACE: BED IN LOWEST LOCKED POSITION, SIDE RAILS UP X2, CALL LIGHT WITHIN REACH. WILL CONTINUE TO MONITOR / ASSIST
[2021-10-09] MEDS ORDERED: ZOLPIDEM TARTRATE 10 MG TABLET PO PRN ×2 (12:00)
[2021-10-09] MEDS ORDERED: LORAZEPAM 1 MG TABLET FOR AGITATION PO PRN ×3 (12:00)
--- NOTE | 2021-10-09 18:36 | NUR ---
RN CLOSING NOTE PT AMBULATORY,, A/O X 4, ABLE TO MAKE NEEDS KNOWN. TOLERATING WELL ON ROOM AIR WITH NO S/S RESPIRATORY DISTRESS. NO COMPLAINTS OF PAIN OR DISCOMFORT AT THIS TIME. CLINICAL TRIAL. SAFETY MEASURES IN PLACE: BED IN LOWEST LOCKED POSITION, SIDE RAILS UP X2, CALL LIGHT WITHIN REACH. WILL CONTINUE TO MONITOR / ASSIST
--- NOTE | 2021-10-09 19:25 | NUR ---
RN OPENING NOTE PT AMBULATORY,, A/O X 4, ABLE TO MAKE NEEDS KNOWN. TOLERATING WELL ON ROOM AIR WITH NO S/S RESPIRATORY DISTRESS. NO COMPLAINTS OF PAIN OR DISCOMFORT AT THIS TIME. CLINICAL TRIAL. SAFETY MEASURES IN PLACE: BED IN LOWEST LOCKED POSITION, SIDE RAILS UP X2, CALL LIGHT WITHIN REACH. WILL CONTINUE TO MONITOR.
[2021-10-09] MEDS: INVEST MED MK-8189-008-02 MISC 1 DOSE PO SCH (19:59)
[2021-10-09 20:00] VITALS: BP 121/77
[2021-10-09] MEDS ORDERED: ACETAMINOPHEN ES 500 MG TABLET ONE (20:09)
--- NOTE | 2021-10-09 20:11 | NUR ---
RN NOTES PT REQUESTED TYLENOL 100MG FOR MILD PAIN TOLERATED WELL. WILL CONTINUE TO MONITOR.
--- NOTE | 2021-10-10 06:39 | NUR ---
RN CLOSING NOTE PT AMBULATORY,, A/O X 4, ABLE TO MAKE NEEDS KNOWN. TOLERATING WELL ON ROOM AIR WITH NO S/S RESPIRATORY DISTRESS. NO COMPLAINTS OF PAIN OR DISCOMFORT AT THIS TIME. CLINICAL TRIAL. SAFETY MEASURES IN PLACE: BED IN LOWEST LOCKED POSITION, SIDE RAILS UP X2, CALL LIGHT WITHIN REACH. WILL ENDORSE CARE TO DAY SHIFT NURSE.
--- NOTE | 2021-10-10 07:30 | NUR ---
MS RN OPENING NOTES RECEIVED PATIENT AWAKE ON BED AND A/O X4. ON ROOM AIR TOLERATING WELL. NO SOB NOTED. NOT IN DISTRESS. WITH NO COMPLAINTS OF PAIN OR DISCOMFORT AT THIS TIME. WITH NO IV ACCESS NOTED. ON CLINICAL TRIAL STATUS. SAFETY MEASURES IN PLACED. CALL LIGHT WITHIN REACH. BED ON LOWEST LOCKED POSITION, SIDE RAILS UP X2. WILL CONTINUE TO MONITOR.
[2021-10-10 08:00] VITALS: BP 136/69
[2021-10-10] MEDS ORDERED: MAGNESIUM HYDROXIDE 30 ML UDC PO PRN (09:30)
[2021-10-10] MEDS ORDERED: MAG HYDROX/AL HYDROX/SIMETH 30 ML UDC PO PRN (09:30)
[2021-10-10] MEDS ORDERED: IBUPROFEN 200 MG TABLET PO PRN (09:30)
--- NOTE | 2021-10-10 18:51 | NUR ---
MS RN CLOSING NOTES PATIENT AWAKE ON BED AND A/O X4. ON ROOM AIR TOLERATING WELL. NO SOB NOTED. NOT IN DISTRESS. WITH NO COMPLAINTS OF PAIN OR DISCOMFORT AT THIS TIME. WITH NO IV ACCESS NOTED. ON CLINICAL TRIAL STATUS. SAFETY MEASURES IN PLACED. CALL LIGHT WITHIN REACH. BED ON LOWEST LOCKED POSITION, SIDE RAILS UP X2. WILL ENDORSE TO NEXT SHIFT FOR RANI.
--- NOTE | 2021-10-10 19:36 | NUR ---
MS RN OPENING NOTES PATIENT AWAKE ON BED AND A/O X4. ON ROOM AIR TOLERATING WELL. NO SOB NOTED. NOT IN DISTRESS. WITH NO COMPLAINTS OF PAIN OR DISCOMFORT AT THIS TIME. WITH NO IV ACCESS NOTED. ON CLINICAL TRIAL STATUS. SAFETY MEASURES IN PLACED. CALL LIGHT WITHIN REACH. BED ON LOWEST LOCKED POSITION, SIDE RAILS UP X2. WILL CONTINUE TO MONITOR.
[2021-10-10 20:00] VITALS: BP 141/76
[2021-10-10] MEDS: INVEST MED MK-8189-008-02 MISC 1 DOSE PO SCH (20:09)
--- NOTE | 2021-10-11 06:57 | NUR ---
MS RN CLOSING NOTES PATIENT AWAKE ON BED AND A/O X4. ON ROOM AIR TOLERATING WELL. NO SOB NOTED. NOT IN DISTRESS. WITH NO COMPLAINTS OF PAIN OR DISCOMFORT AT THIS TIME. WITH NO IV ACCESS NOTED. ON CLINICAL TRIAL STATUS. SAFETY MEASURES IN PLACED. CALL LIGHT WITHIN REACH. BED ON LOWEST LOCKED POSITION, SIDE RAILS UP X2. WILL ENDORSE CRAE TO DAY SHIFT NURSE.
--- NOTE | 2021-10-11 07:41 | NUR ---
MS RN OPENING NOTES PATIENT AWAKE IN BED AND A/O X4. ON ROOM AIR TOLERATING WELL. NO SOB NOTED. NOT IN DISTRESS. WITH NO COMPLAINTS OF PAIN OR DISCOMFORT AT THIS TIME. WITH NO IV ACCESS NOTED. ON CLINICAL TRIAL STATUS. WILL ASSESS FOR ANY EXTRAPYRAMIDAL SYMPTOMS AND REPORT TO DR SERRANO. SAFETY MEASURES IN PLACED. CALL LIGHT WITHIN REACH. BED ON LOWEST LOCKED POSITION, SIDE RAILS UP X2. WILL CONTINUE PLAN OF CARE AND ANTICIPATE NEEDS.
[2021-10-11 08:00] VITALS: BP 109/62
[2021-10-11 16:00] VITALS: BP 117/75
--- NOTE | 2021-10-11 18:55 | NUR ---
MS RN CLOSING NOTES PATIENT AWAKE IN BED AND A/O X4. ON ROOM AIR TOLERATING WELL. NO SOB NOTED. NOT IN DISTRESS. WITH NO COMPLAINTS OF PAIN OR DISCOMFORT AT THIS TIME. WITH NO IV ACCESS NOTED. ON CLINICAL TRIAL STATUS. WILL ASSESS FOR ANY EXTRAPYRAMIDAL SYMPTOMS AND REPORT TO DR SERRANO. SAFETY MEASURES IN PLACED. CALL LIGHT WITHIN REACH. BED ON LOWEST LOCKED POSITION, SIDE RAILS UP X2. WILL ENDORSE TO NIGHTSHIFT RN FOR CONTINUATION OF CARE.
--- NOTE | 2021-10-11 19:54 | NUR ---
RN OPENING NOTE PATIENT AWAKE IN BED. A/OX4. NO S/S OF DISTRESS, BREATHING W/O DIFFICULTY ON ROOM AIR. SAFETY MEASURES IN PLACE: BED LOCKED, AT LOWEST POSITION, RAILS UP X3, CALL YOUNG WITHIN REACH. WILL CONTINUE TO MONITOR PATIENT.
[2021-10-11 20:00] VITALS: BP 120/79
[2021-10-11] MEDS: INVEST MED MK-8189-008-02 MISC 1 DOSE PO SCH (20:35)
--- NOTE | 2021-10-12 06:41 | NUR ---
RN CLOSING NOTE PATIENT AWAKE IN BED. A/OX4. NO S/S OF DISTRESS, BREATHING W/O DIFFICULTY ON ROOM AIR. SAFETY MEASURES IN PLACE: BED LOCKED, AT LOWEST POSITION, RAILS UP X3, CALL YOUNG WITHIN REACH. WILL ENDORSE TO NEXT SHIFT FOR RANI.
--- NOTE | 2021-10-12 07:20 | NUR ---
RN OPENING NOTES RECEIVED PATIENT AWAKE IN BED. A/OX4. ON RA WITH NO S/SX OF DISTRESS NOTED. BREATHING EVEN AND UNLABORED. SAFETY MEASURES IN PLACE. WILL CONTINUE TO MONITOR
[2021-10-12] MEDS: ACETAMINOPHEN ES 500 MG TABLET PO PRN (13:44)
--- NOTE | 2021-10-12 19:30 | NUR ---
MS RN OPENING NOTE PATIENT IN ROOM DURING RANI REPORT. A/OX4. NO S/S OF APPARENT DISTRESS. NO C/O PAIN AT THIS TIME. PATIENT AMBULATORY. WILL CONTINUE WITH PATIENT'S PLAN OF CARE.
--- NOTE | 2021-10-12 19:32 | NUR ---
RN CLOSING NOTES ENDORSED REPORT TO THE RIVER TESTER NURSE FOR RANI
[2021-10-12] MEDS: INVEST MED MK-8189-008-02 MISC 1 DOSE PO SCH (19:58)
[2021-10-12 20:00] VITALS: BP 110/59
--- NOTE | 2021-10-13 08:08 | NUR ---
MS RN CLOSING NOTE PATIENT IN BED DURING RANI REPORT. A/OX4. NO S/S OF APPARENT DISTRESS IN ROOM AIR. NO C/O PAIN. DID NOT EXHIBIT ANY S/S OF [place]ATH[place], TREMORS, PSYCH INSTABILITY AND PATIENT STATES RELIEF OF HALLUCINATION FROM THE INVESTIGATIONAL MEDICATION. NEEDS ATTENDED. INVESTIGATIONAL DRUG GIVEN ON TIME. WILL ENDORSE TO MORNING SHIFT RN FOR CONTINUITY OF CARE.
--- NOTE | 2021-10-13 09:42 | NUR ---
MS RN OPENING NOTES RECEIVED PATIENT IN BED, AWAKE, A/O X4. PATIENT ON ROOM AIR; BREATHING EVEN AND UNLABORED; NO SOB NOTED AT THIS TIME. NO COMPLAINS OF PAIN. NO IV; CLINICAL TRIAL PATIENT. SAFETY PRECAUTIONS IN PLACE; BED IN LOW POSITION AND LOCKED, RAILS UP X2, CALL LIGHT WITHIN REACH. WILL CONTINUE TO MONITOR PATIENT.
[2021-10-13 16:00] VITALS: BP 119/87
--- NOTE | 2021-10-13 19:15 | NUR ---
MS RN OPENING NOTE RECEIVED PATIENT IN BED; AWAKE, ALERT AND ORIENTED X4. ON ROOM AIR; WELL TOLERATED. BREATHING IS EVEN AND UNLABORED. NOT IN ANY FORM OF RESPIRATORY DISTRESS. DENIES ANY PAIN OR DISCOMFORT OF THIS TIME. NO IV ACCESS. ON CLINICAL TRIAL. ABLE TO MAKE NEEDS KNOWN. SAFETY AND FALL PRECAUTIONS IMPLEMENTED; CALL LIGHT AND TABLE WITHIN EASY REACH, SIDE RAILS UP X2, BED IN LOWEST LOCKED POSITION. WILL CONTINUE TO MONITOR
[2021-10-13 20:00] VITALS: BP 114/74
[2021-10-13] MEDS: INVEST MED MK-8189-008-02 MISC 1 DOSE PO SCH (20:00)
[2021-10-13] MEDS: ACETAMINOPHEN ES 500 MG TABLET PO PRN (20:00)
--- NOTE | 2021-10-13 20:31 | NUR ---
MS RN CLOSING NOTE PATIENT IN BED DURING RANI REPORT. A/OX4. NO S/S OF APPARENT DISTRESS IN ROOM AIR. NO C/O PAIN. DID NOT EXHIBIT ANY S/S OF AKATHISIA, TREMORS, PSYCH INSTABILITY AND PATIENT STATES RELIEF OF HALLUCINATION FROM THE INVESTIGATIONAL MEDICATION. NEEDS ATTENDED. WILL ENDORSE TO HEAD TRIMMER NURSE FOR RANI
--- NOTE | 2021-10-14 06:38 | NUR ---
MS RN CLOSING NOTE PATIENT RESTING IN BED; AWAKE, A/OX4. STABLE ON ROOM AIR. BREATHING IS EVEN AND UNLABORED. IN NO ACUTE DISTRESS NOTED. NO COMPLAINTS OF PAIN OR DISCOMFORT OF THIS TIME. NO IV ACCESS. ON CLINICAL TRIAL. ALL DUE MEDS GIVEN. SAFETY AND FALL PRECAUTIONS IMPLEMENTED; CALL LIGHT AND TABLE WITHIN EASY REACH, SIDE RAILS UP X2, BED IN LOWEST LOCKED POSITION. ENDORSED TO MORNING SHIFT FOR RANI.
--- NOTE | 2021-10-14 07:05 | NUR ---
MS RN OPENING NOTE: RECEIVED PATIENT IN BED; AWAKE, ALERT AND ORIENTED X4. ON ROOM AIR, WITH NO S/S OF RESPIRATORY DISTRESS, BREATHING EVEN AND UNLABORED. ABLE TO MAKE NEEDS KNOWN. DOES NOT VERBALIZE ANY PAIN OR DISCOMFORT AT THIS TIME. NO IV ACCESS. PT.ON CLINICAL TRIAL. ABLE TO AMBULATE INDEPENDENTLY. SAFETY AND FALL PRECAUTIONS IMPLEMENTED; CALL LIGHT AND TRAY TABLE WITHIN EASY REACH, SIDE RAILS UP X2, BED IN LOWEST LOCKED POSITION. WILL CONTINUE TO MONITOR.
[2021-10-14 08:00] VITALS: BP 119/69
[2021-10-14 16:11] VITALS: BP 134/84
--- NOTE | 2021-10-14 19:02 | NUR ---
MS RN CLOSING NOTE: PATIENT REMAINS IN BED; WATCHING TV, AWAKE, ALERT AND ORIENTED X4. ON ROOM AIR, BREATHING EVEN AND UNLABORED. PT. IS ABLE TO MAKE SIMPLE NEEDS KNOWN. NO COMPLAINTS OF PAIN OR DISCOMFORT AT THIS TIME. PT. HAS NO IV ACCESS. THIS PT. IS ON CLINICAL TRIAL. SHE IS ABLE TO AMBULATE INDEPENDENTLY. SAFETY AND FALL PRECAUTIONS MAINTAINED; CALL LIGHT AND PERSONAL BELONGINGS WITHIN EASY REACH, SIDE RAILS UP X2, BED IN LOWEST LOCKED POSITION. WILL ENDORSE CONTINUITY OF CARE TO DESKTOP SUPPORT ASSOCIATE RN.
--- NOTE | 2021-10-14 19:41 | NUR ---
MS RN OPENING NOTES RECEIVED PATIENT RESTING IN BED COMFORTABLY; A/OX4, ABLE TO MAKE NEEDS KNOWN; PATIENT AMBULATORY WITH STEADY GAIT; BREATHING EVEN AND UNLABORED; NO SOB NOTED; TOLERATING ROOM AIR WELL; NO IV ACCESS NOTED DUE TO CLINICAL TRIAL; SAFETY PRECAUTIONS IMPLEMENTED; BED LOCKED IN LOW POSITION; SIDE RAILSX2; CALL LIGHT WITHIN REACH, WILL CONT PLAN OF CARE
[2021-10-14] MEDS: INVEST MED MK-8189-008-02 MISC 1 DOSE PO SCH (19:52)
[2021-10-14 20:00] VITALS: BP 128/75
--- NOTE | 2021-10-15 06:46 | NUR ---
MS RN CLOSING NOTES PATIENT RESTING IN BED COMFORTABLY; A/OX4, ABLE TO MAKE NEEDS KNOWN; PATIENT AMBULATORY WITH STEADY GAIT; BREATHING EVEN AND UNLABORED; NO SOB NOTED; TOLERATING ROOM AIR WELL; NO IV ACCESS NOTED DUE TO CLINICAL TRIAL; ALL NEEDS RENDERED; SAFETY PRECAUTIONS IMPLEMENTED; BED LOCKED IN LOW POSITION; SIDE RAILSX2; CALL LIGHT WITHIN REACH, WILL ENDORSE RANI TO ONCOMING SHIFT
--- NOTE | 2021-10-15 07:20 | NUR ---
MS RN OPENING NOTES PATIENT RESTING IN BED AWAKE. A/OX4, ABLE TO MAKE NEEDS KNOWN. PATIENT AMBULATORY WITH STEADY GAIT. BREATHING EVEN AND UNLABORED ON RA, TOLERATING WELL. NO IV ACCESS NOTED DUE TO CLINICAL TRIAL. SAFETY MEASURES IN PLACE. WILL CONTINUE PLAN OF CARE.
[2021-10-15 08:00] VITALS: BP 120/60
[2021-10-15 16:00] VITALS: BP 136/79
--- NOTE | 2021-10-15 19:29 | NUR ---
RN NOTES ENDORSED REPORT TO SALES ADMINISTRATION MANAGER NURSE FOR RANI
--- NOTE | 2021-10-15 19:40 | NUR ---
MS/RN OPENING NOTE RECEIVED PATIENT RESTING IN BED. AWAKE, ALERT AND ORIENTED X 4. ABLE TO MAKE NEEDS KNOWN. DENIES PAIN AT THIS TIME. CONTINUES ON ROOM AIR WITH NO S/SX OF RESPIRATORY DISTRESS NOTED. NO IV ACCESS AT THIS TIME. CONTINUES ON CLINICAL TRIAL. CONTINUES ON INVESTIGATIONAL MEDICATIONS. PATIENT TO BE NPO AFTER 2200 FOR LAB DRAW IN AM. PATIENT AWARE AND AGREEABLE. CALL LIGHT WITHIN REACH. ASPIRATION, FALL AND SAFETY PRECAUTIONS MAINTAINED. ALL NEEDS ATTENDED TO AT THIS TIME.
[2021-10-15 20:00] VITALS: BP 114/75
[2021-10-15] MEDS: INVEST MED MK-8189-008-02 MISC 1 DOSE PO SCH (20:02)
--- NOTE | 2021-10-15 22:00 | NUR ---
MS/RN NOTE PATIENT IS NPO FOR LAB DRAW IN AM. PT AWARE AND AGREEABLE.
--- NOTE | 2021-10-16 06:40 | NUR ---
MS/RN CLOSING NOTE PATIENT CURRENTLY RESTING IN BED. AWAKE, ALERT AND ORIENTED X 4. ABLE TO MAKE NEEDS KNOWN. DENIES PAIN AT THIS TIME. CONTINUES ON ROOM AIR WITH NO S/SX OF RESPIRATORY DISTRESS NOTED. NO IV ACCESS AT THIS TIME. CONTINUES ON CLINICAL TRIAL. CONTINUES ON INVESTIGATIONAL MEDICATIONS. PATIENT HAS BEEN NPO SINCE 2200 FOR LAB DRAW THIS AM. CALL LIGHT WITHIN REACH. ASPIRATION, FALL AND SAFETY PRECAUTIONS MAINTAINED. ALL NEEDS ATTENDED TO AT THIS TIME. WILL ENDORSE PLAN OF CARE TO ONCOMING SHIFT RN.
--- NOTE | 2021-10-16 07:36 | NUR ---
MS RN OPENING NOTES: RECEIVED PATIENT AWAKE IN BED. A/O X 4 AND ABLE TO VERBALIZED NEEDS. PATIENT AMBULATORY. NO SOB OR CARDIAC DISTRESS NOTED, AFEBRILE. ON NPO, FOR LABORATORY TODAY. SAFETY PRECAUTIONS MAINTAINED: BED LOCKED AND IN LOWEST POSITION. CALL LIGHT IN EASY REACH FOR HELP. WILL MONITOR FOR ANY SIGNIFICANT CHANGES.
[2021-10-16 08:00] VITALS: BP 113/71
[2021-10-16] MEDS ORDERED: ZOLPIDEM TARTRATE 10 MG TABLET PO PRN ×2 (12:00)
[2021-10-16] MEDS ORDERED: LORAZEPAM 1 MG TABLET FOR AGITATION PO PRN (12:00)
[2021-10-16 16:13] VITALS: BP 130/77
--- NOTE | 2021-10-16 18:56 | NUR ---
MS RN CLOSING NOTES: PATIENT AWAKE IN BED WATCHING TELEVISION AT THIS TIME. A/O X 4 AND ABLE TO VERBALIZED NEEDS. PATIENT AMBULATORY. NO SOB OR CARDIAC DISTRESS NOTED ON ROOM AIR AND TOLERATING WELL. NO EPISODES OF HALLUCINATION OR DEPRESSION. NO STRANGE OR ANY BEHAVIORAL CHANGES. SAFETY PRECAUTIONS MAINTAINED: BED LOCKED AND IN LOWEST POSITION. CALL LIGHT IN EASY REACH FOR HELP. WILL MONITOR FOR ANY SIGNIFICANT CHANGES. ENDORSED TO GRADUATE FELLOW NURSE FOR RANI.
--- NOTE | 2021-10-16 19:40 | NUR ---
MS/RN OPENING NOTE RECEIVED PATIENT RESTING IN BED. AWAKE, ALERT AND ORIENTED X 4. ABLE TO MAKE NEEDS KNOWN. DENIES PAIN AT THIS TIME. CONTINUES ON ROOM AIR WITH NO S/SX OF RESPIRATORY DISTRESS NOTED. NO IV ACCESS AT THIS TIME. CONTINUES ON CLINICAL TRIAL. CONTINUES ON INVESTIGATIONAL MEDICATIONS. CALL LIGHT WITHIN REACH. ASPIRATION, FALL AND SAFETY PRECAUTIONS MAINTAINED. ALL NEEDS ATTENDED TO AT THIS TIME.
[2021-10-16 20:00] VITALS: BP 138/77
[2021-10-16] MEDS: INVEST MED MK-8189-008-02 MISC 1 DOSE PO SCH (20:01)
--- NOTE | 2021-10-17 06:37 | NUR ---
MS/RN CLOSING NOTE PATIENT CURRENTLY RESTING IN BED. AWAKE, ALERT AND ORIENTED X 4. ABLE TO MAKE NEEDS KNOWN. DENIES PAIN AT THIS TIME. CONTINUES ON ROOM AIR WITH NO S/SX OF RESPIRATORY DISTRESS NOTED. NO IV ACCESS AT THIS TIME. CONTINUES ON CLINICAL TRIAL. CONTINUES ON INVESTIGATIONAL MEDICATIONS. CALL LIGHT WITHIN REACH. ASPIRATION, FALL AND SAFETY PRECAUTIONS MAINTAINED. ALL NEEDS ATTENDED TO AT THIS TIME. WILL ENDORSE PLAN OF CARE TO ONCOMING SHIFT RN.
--- NOTE | 2021-10-17 07:30 | NUR ---
RN OPENING NOTE PATIENT IS IN BED, AWAKE, ALERT, ORIENTED X 4. ON ROOM AIR WITH OXYGEN SATURATION AT 97%. DENIES PAIN, BREATHING UNLABORED, AND NOT IN ANY FORM OF DISTRESS. BED IS LOCKED IN LOWEST POSITION, 3 SIDE RAILS UP, CALL LIGHT WITHIN REACH. WILL CONTINUE TO MONITOR THROUGHOUT SHIFT.
[2021-10-17 08:00] VITALS: BP 115/69
[2021-10-17 16:00] VITALS: BP 119/75
--- NOTE | 2021-10-17 18:51 | NUR ---
RN CLOSING NOTE PATIENT IS RESTING COMFORTABLY IN BED AND REMAINED STABLE THROUGHOUT SHIFT. NO CHANGE IN BEHAVIOR NOTED AND PATIENT WAS COOPERATIVE AND COMPLIANT. DENIES PAIN, BREATHING UNLABORED, AND NOT IN ANY FORM OF DISTRESS. BED IS LOCKED IN LOWEST POSITION, 3 SIDE RAILS UP, CALL LIGHT WITHIN REACH. WILL ENDORSE TO SLAB GRINDER NURSE FOR CONTINUITY OF CARE.
[2021-10-17 20:00] VITALS: BP 119/82
[2021-10-17] MEDS: INVEST MED MK-8189-008-02 MISC 1 DOSE PO SCH (20:11)
[2021-10-17 22:41] VITALS: BP 119/75
--- NOTE | 2021-10-18 06:46 | NUR ---
RN CLOSING NOTE PATIENT IS RESTING COMFORTABLY IN BED AND REMAINED STABLE THROUGHOUT SHIFT. NO CHANGE IN BEHAVIOR NOTED AND PATIENT WAS COOPERATIVE AND COMPLIANT. DENIES PAIN, BREATHING UNLABORED, AND NOT IN ANY FORM OF DISTRESS. BED IS LOCKED IN LOWEST POSITION, 3 SIDE RAILS UP, CALL LIGHT WITHIN REACH. WILL ENDORSE TO BUSINESS BANKING RELATIONSHIP MANAGER NURSE FOR CONTINUITY OF CARE.
--- NOTE | 2021-10-18 07:30 | NUR ---
MS RN OPENING NOTES RECEIVED PATIENT AWAKE IN BED. A/O X 4 AND ABLE TO VERBALIZED NEEDS. CONTINUE ON CLINICAL TRIALS, PATIENT AMBULATORY. NO SOB OR CARDIAC DISTRESS NOTED, AFEBRILE. SAFETY PRECAUTIONS MAINTAINED: BED LOCKED AND IN LOWEST POSITION. CALL LIGHT IN EASY REACH FOR HELP. WILL MONITOR FOR ANY SIGNIFICANT CHANGES.
[2021-10-18 08:00] VITALS: BP 133/78
[2021-10-18 16:00] VITALS: BP 128/70
--- NOTE | 2021-10-18 19:25 | NUR ---
RN OPENING NOTES RECEIVED PT IN BED, AWAKE IN BED. AOx4, ABLE TO MAKE NEEDS KNOWN. ON RA AND TOLERATING WELL. NO SOB NOTED. NO S/SX OF RESPIRATORY DISTRESS NOTED. NO IV ACCESS. CLINICAL TRIAL PATIENT. SAFETY PRECAUTIONS IN PLACE: BED IN LOWEST, LOCKED POSITION, SIDERAILS UPx2, AND BRAKES ON. TABLE AND CALL LIGHT WITHIN REACH. WILL CONTINUE TO MONITOR.
[2021-10-18 20:00] VITALS: BP 115/65
[2021-10-18] MEDS: INVEST MED MK-8189-008-02 MISC 1 DOSE PO SCH (20:02)
--- NOTE | 2021-10-19 06:54 | NUR ---
RN CLOSING NOTES PT IN BED, AWAKE IN BED. AOx4, ABLE TO MAKE NEEDS KNOWN. ON RA AND TOLERATING WELL. NO SOB NOTED. NO S/SX OF RESPIRATORY DISTRESS NOTED. NO IV ACCESS. CLINICAL TRIAL PATIENT. INVESTIGATIONAL MEDICATION GIVEN. ALL ORDERS CARRIED OUT. ALL NEEDS MET. PT KEPT CLEAN AND DRY. SAFETY PRECAUTIONS IN PLACE: BED IN LOWEST, LOCKED POSITION, SIDERAILS UPx2, AND BRAKES ON. TABLE AND CALL LIGHT WITHIN REACH. WILL ENDORSE TO ONCOMING SHIFT FOR RANI.
--- NOTE | 2021-10-19 07:00 | NUR ---
MS RN OPENING NOTES PATIENT LAYING IN BED, A/O X 4, ABLE TO MAKE NEEDS KNOWN. TOLERATING WELL ON ROOM AIR WITH NO S/S RESPIRATORY DISTRESS. NO COMPLAINTS OF PAIN OR DISCOMFORT AT THIS TIME. SAFETY MEASURES IN PLACE: BED IN LOWEST LOCKED POSITION, SIDE RAILS UP X 2, CALL LIGHT WITHIN REACH. WILL CONTINUE TO MONITOR.
--- NOTE | 2021-10-19 19:00 | NUR ---
MS RN CLOSING NOTES PATIENT LAYING IN BED, A/O X 4, ABLE TO MAKE NEEDS KNOWN. TOLERATING WELL ON ROOM AIR WITH NO S/S RESPIRATORY DISTRESS. NO COMPLAINTS OF PAIN OR DISCOMFORT AT THIS TIME. SAFETY MEASURES IN PLACE: BED IN LOWEST LOCKED POSITION, SIDE RAILS UP X 2, CALL LIGHT WITHIN REACH. ALL NEEDS MET. WILL ENDORSE TO REFUSE DRIVER FOR RANI.
[2021-10-19 20:00] VITALS: BP 107/66
[2021-10-19] MEDS: INVEST MED MK-8189-008-02 MISC 1 DOSE PO SCH (20:01)
[2021-10-19] MEDS ORDERED: ACETAMINOPHEN ES 500 MG TABLET ONE (21:01)
[2021-10-19] MEDS: ACETAMINOPHEN ES 500 MG TABLET PO PRN (21:02)
--- NOTE | 2021-10-20 07:18 | NUR ---
MS RN OPENING NOTE RECEIVED PATIENT AWAKE IN BED. A/O X 4 AND ABLE TO VERBALIZED NEEDS. CONTINUE ON CLINICAL TRIALS, PATIENT AMBULATORY. NO SOB OR CARDIAC DISTRESS NOTED, AFEBRILE. SAFETY PRECAUTIONS MAINTAINED: BED LOCKED AND IN LOWEST POSITION. CALL LIGHT IN EASY REACH FOR HELP. WILL MONITOR FOR ANY SIGNIFICANT CHANGES.
[2021-10-20 08:09] VITALS: BP 117/69
[2021-10-20 16:24] VITALS: BP 122/72
--- NOTE | 2021-10-20 19:00 | NUR ---
MS RN CLOSING NOTES PT IN BED, AWAKE IN BED. AOx4, ABLE TO MAKE NEEDS KNOWN. ON RA AND TOLERATING WELL. NO SOB NOTED. NO S/SX OF RESPIRATORY DISTRESS NOTED. NO IV ACCESS. CLINICAL TRIAL PATIENT. INVESTIGATIONAL MEDICATION GIVEN. ALL ORDERS CARRIED OUT. ALL NEEDS MET. PT KEPT CLEAN AND DRY. SAFETY PRECAUTIONS IN PLACE: BED IN LOWEST, LOCKED POSITION, SIDERAILS UPx2, AND BRAKES ON. TABLE AND CALL LIGHT WITHIN REACH. ENDORSED TO NEXT SHIFT FOR CONTINUITY OF CARE.
--- NOTE | 2021-10-20 20:00 | NUR ---
MS RN OPENING NOTES PT IN BED, AWAKE IN BED. AOx4, ABLE TO MAKE NEEDS KNOWN. ON RA AND TOLERATING WELL. NO SOB NOTED. NO S/SX OF RESPIRATORY DISTRESS NOTED. NO IV ACCESS. ALL NEEDS MET. PT KEPT CLEAN AND DRY. SAFETY PRECAUTIONS IN PLACE: BED IN LOWEST, LOCKED POSITION, SIDERAILS UPx2, AND BRAKES ON. TABLE AND CALL LIGHT WITHIN REACH. WILL CONTINUE TO MONITOR
[2021-10-20] MEDS: INVEST MED MK-8189-008-02 MISC 1 DOSE PO SCH (20:03)
[2021-10-20] MEDS ORDERED: ACETAMINOPHEN ES 500 MG TABLET ONE (20:28)
[2021-10-20] MEDS: ACETAMINOPHEN ES 500 MG TABLET PO PRN (20:31)
[2021-10-21 00:16] VITALS: BP 105/58
--- NOTE | 2021-10-21 06:52 | NUR ---
MS RN CLOSING NOTES PT IN BED, AWAKE IN BED. AOx4, ABLE TO MAKE NEEDS KNOWN. ON RA AND TOLERATING WELL. NO SOB NOTED. NO S/SX OF RESPIRATORY DISTRESS NOTED. NO IV ACCESS. ALL NEEDS MET. PT KEPT CLEAN AND DRY. SAFETY PRECAUTIONS IN PLACE: BED IN LOWEST, LOCKED POSITION, SIDE RAILS UPx2, AND BRAKES ON. TABLE AND CALL LIGHT WITHIN REACH. WILL ENDORSE RANI.
[2021-10-21 08:00] VITALS: BP 111/69
[2021-10-21] MEDS: ACETAMINOPHEN ES 500 MG TABLET PO PRN (12:43)
--- NOTE | 2021-10-21 12:47 | NUR ---
given tylenol for rt. knee pain.
[2021-10-21 16:00] VITALS: BP 117/46
--- NOTE | 2021-10-21 18:00 | NUR ---
MS RN NOTE: TOOK OVER PT.'S CARE AT 1800. PT IS IN BED, AWAKE, WATCHING TV, AOX4, ABLE TO MAKE NEEDS KNOWN. ON RA , BREATHING EVEN AND UNLABORED. NO IV ACCESS. NO COMPLAINTS OF PAIN OR DISCOMFORT AT THIS TIME. PT. ABLE TO AMBULATE INDEPENDENTLY. SAFETY PRECAUTIONS IN PLACE: BED IN LOWEST, LOCKED POSITION, SIDE RAILS UPx2. TABLE AND CALL LIGHT WITHIN REACH. WILL MONITOR FOR ANY CHANGES.
--- NOTE | 2021-10-21 18:55 | NUR ---
MS RN CLOSING NOTE: PATIENT REMAINS IN BED; WATCHING TV, AWAKE, ALERT AND ORIENTED X4. THIS PT. IS ON CLINICAL TRIAL.ON ROOM AIR, BREATHING EVEN AND UNLABORED. PT. IS ABLE TO MAKE NEEDS KNOWN. NO COMPLAINTS OF PAIN OR DISCOMFORT AT THIS TIME. PT. HAS NO IV ACCESS. SKIN IS INTACT. SHE IS ABLE TO AMBULATE INDEPENDENTLY. VOIDING WELL WITH 2 NORMAL BM THIS SHIFT. SAFETY AND FALL PRECAUTIONS MAINTAINED; CALL LIGHT AND PERSONAL BELONGINGS WITHIN EASY REACH, SIDE RAILS UP X2, BED IN LOWEST LOCKED POSITION. WILL ENDORSE CONTINUITY OF CARE TO RUBBER CHEMIST RN.
--- NOTE | 2021-10-21 19:45 | NUR ---
MS RN OPENING NOTE: PATIENT REMAINS IN BED; WATCHING TV, AWAKE, ALERT AND ORIENTED X4. THIS PT. IS ON CLINICAL TRIAL.ON ROOM AIR, BREATHING EVEN AND UNLABORED. PT. IS ABLE TO MAKE NEEDS KNOWN. NO COMPLAINTS OF PAIN OR DISCOMFORT AT THIS TIME. PT. HAS NO IV ACCESS. SKIN IS INTACT. SHE IS ABLE TO AMBULATE INDEPENDENTLY. SAFETY AND FALL PRECAUTIONS MAINTAINED; CALL LIGHT AND PERSONAL BELONGINGS WITHIN EASY REACH, SIDE RAILS UP X2, BED IN LOWEST LOCKED POSITION. WILL CONTINUE TO MONITOR.
[2021-10-21 20:00] VITALS: BP 133/77
[2021-10-21] MEDS: INVEST MED MK-8189-008-02 MISC 1 DOSE PO SCH (20:01)
--- NOTE | 2021-10-22 06:52 | NUR ---
MS RN CLOSING NOTE: PATIENT REMAINS IN BED; WATCHING TV, AWAKE, ALERT AND ORIENTED X4. THIS PT. IS ON CLINICAL TRIAL.ON ROOM AIR, BREATHING EVEN AND UNLABORED. PT. IS ABLE TO MAKE NEEDS KNOWN. NO COMPLAINTS OF PAIN OR DISCOMFORT AT THIS TIME. PT. HAS NO IV ACCESS. SKIN IS INTACT. SHE IS ABLE TO AMBULATE INDEPENDENTLY. SAFETY AND FALL PRECAUTIONS MAINTAINED; CALL LIGHT AND PERSONAL BELONGINGS WITHIN EASY REACH, SIDE RAILS UP X2, BED IN LOWEST LOCKED POSITION. WILL ENDORSE RANI.
--- NOTE | 2021-10-22 07:30 | NUR ---
RN MS NOTES PT AWAKE, IN BED, ALERT AND ORIENTED, AMBULATES WITH STEDY GAIT, NO BEHAVIOR PROBLEM NOTED, CALL LIGHT WITHIN REACH.
[2021-10-22 08:00] VITALS: BP 123/78
[2021-10-22 15:58] VITALS: BP 123/81
--- NOTE | 2021-10-22 18:18 | NUR ---
RN NOTES PT ALERT AND ORIENTED, STATES NO CONCERNS OR DISCOMFORT. AMBULATING AROUND UNIT BY HERSELF, EXPRESSES NO CONCERNS. VITALS SIGNS STABLE, SHOWS NO SIGNS OF DISTRESS. CALL LIGHT WITHIN REACH AND BED AT LOWEST POSITION.
--- NOTE | 2021-10-22 19:00 | NUR ---
RECEIVED PATIENT IN HER ROOM SHE IS SMILING AND TALKATIVE WATCHING TV
[2021-10-22 20:00] VITALS: BP 117/64
[2021-10-22] MEDS: INVEST MED MK-8189-008-02 MISC 1 DOSE PO SCH (20:20)
--- NOTE | 2021-10-23 05:08 | NUR ---
CLOSING NOTES: SLEPT 8 HOURS SHE WAS IN BED BY 2200 SHE IS FRIENDLY COOPERATIVE ENJOYS CONVERSATION QUICK TO LAUGH HAPPY
--- NOTE | 2021-10-23 07:44 | NUR ---
RN OPENING NOTE PATIENT RECEIVED SITTING IN BED AND WATCHING TV. NO VISUAL S/SX OF DISTRESS OR SOB. NO C/O PAIN. A/O X4. REMAINS ON CLINICAL TRIAL. ABLE TO VERBALIZE ALL NEEDS AND AMBULATE WITHOUT ASSISTANCE. SAFETY MEASURES CONTINUE IN PLACE WITH BED IN LOWEST POSITION AND SIDERAIL UPX2. CALL LIGHT WITHIN REACH. WILL CONT TO MONITOR.
[2021-10-23 08:00] VITALS: BP 117/72
[2021-10-23] MEDS ORDERED: ZOLPIDEM TARTRATE 10 MG TABLET PO PRN ×2 (12:00)
[2021-10-23] MEDS ORDERED: LORAZEPAM 1 MG TABLET FOR AGITATION/ANXIETY PO PRN ×2 (12:00)
[2021-10-23] MEDS: ACETAMINOPHEN ES 500 MG TABLET PO PRN (13:35)
[2021-10-23 16:00] VITALS: BP 115/73
--- NOTE | 2021-10-23 18:20 | NUR ---
RN CLOSING NOTE PATIENT A/O 4. CONTINUES ON CLINICAL TRIAL. NO DISTRESS OBSERVED OR REPORTED ON SHIFT. C/O MILD HEADACHE; RECEIVED TYLENOL @ 1335. MEDICATION EFFECTIVE. REMAINS ABLE TO VERBALIZE NEEDS. AMBULATES UNIT W/O ASSIST. SAFETY MEASURES IN PLACE; BED IN LOWEST POSITION AND LOCKED. CALL LIGHT WITHIN REACH. WILL CONT TO MONITOR.
--- NOTE | 2021-10-23 19:41 | NUR ---
RECEIVING NOTES: ALERT AND ORIENTATED X4 IN ROOM CLINICAL TRAIL
[2021-10-23 19:56] VITALS: BP 120/68
[2021-10-23 20:00] VITALS: BP 120/68
[2021-10-23] MEDS: INVEST MED MK-8189-008-02 MISC 1 DOSE PO SCH (20:14)
--- NOTE | 2021-10-24 05:07 | NUR ---
closing notes: slept thru the night slept 10 hours at the beginning of the shift smiling and in good spirits stated "I'm not hearing voices" I'm so happy
--- NOTE | 2021-10-24 07:10 | NUR ---
MS RN OPENING NOTE RECEIVED PATIENT AWAKE IN BED. A/O X 4 AND ABLE TO VERBALIZED NEEDS. ON CLINICAL TRIAL. PATIENT IS AMBULATORY. NO SOB OR CARDIAC DISTRESS NOTED, AFEBRILE. SAFETY PRECAUTIONS MAINTAINED: BED LOCKED AND IN LOWEST POSITION. CALL LIGHT AN BEDSIDE TABLE WITHIN EASY REACH FOR ASSISTANCE. WILL MONITOR FOR ANY SIGNIFICANT CHANGES.
[2021-10-24 08:00] VITALS: BP 108/66
--- NOTE | 2021-10-24 14:10 | NUR ---
MS RN NOTE PATIENT REMAINS STABLE. WILL CONTINUE TO MONITOR.
[2021-10-24 16:00] VITALS: BP 120/77
--- NOTE | 2021-10-24 18:50 | NUR ---
MS RN CLOSING NOTE PATIENT AWAKE IN BED. A/O X 4 AND ABLE TO VERBALIZED NEEDS. ON CLINICAL TRIAL. PATIENT IS AMBULATORY. NO SOB OR CARDIAC DISTRESS NOTED, AFEBRILE. SAFETY PRECAUTIONS MAINTAINED: BED LOCKED AND IN LOWEST POSITION. CALL LIGHT AN BEDSIDE TABLE WITHIN EASY REACH FOR ASSISTANCE. NO UNTOWARD BEHAVIOR NOTED. ENDORSED PATIENT TO NEXT SHIFT FOR CONTINUITY OF CARE.
--- NOTE | 2021-10-24 19:25 | NUR ---
MS RN OPENING NOTES: RECEIVED PATIENT AWAKE IN BED, BED IN LOW POSITION CALL LIGHTS WITHIN REACH, NO COMPLAIN OF PAIN AND DISCOMFORT AT THIS TIME ON ROOM AIR SATURATING WELL. PATIENT IS A/OX4 ABLE TO MAKE NEEDS KNOWN, ON CLINICAL TRILA NO CHANGES IN BEHAVIOR WAS OBSERVED, WILL CONTINUE TO MONITOR.
[2021-10-24 20:00] VITALS: BP 125/75
[2021-10-24] MEDS: INVEST MED MK-8189-008-02 MISC 1 DOSE PO SCH (20:01)
--- NOTE | 2021-10-25 06:59 | NUR ---
MS RN CLOSING NOTES: PATIENT AWAKE IN BED , BED IN LOW POSITION, CALL LIGHTS WITHIN REACH, NO COMPLAIN OF PAIN AND DISCOMFORT AT THIS TIME, PATIENT IS A/OX4 ABLE TO MAKE NEEDS KNOWN, ON CLINICAL TRIAL, NO CHANGES IN BEHAVIOR HAS BEEN OBSERVED DURING THE SHIFT, PATIENT KEPT CLEAN AND DRY ALL NEEDS MET ENDORSE TO INCOMING SHIFT.
[2021-10-25 08:05] VITALS: BP 105/68
[2021-10-25 16:07] VITALS: BP 126/65
--- NOTE | 2021-10-25 18:39 | NUR ---
RN CLOSING NOTE NO CHANGE IN PATIENT STATUS. P NO VISUAL S/SX OF DISTRESS OR SOB. NO C/O PAIN. A/O X4. REMAINS ON CLINICAL TRIAL. ABLE TO VERBALIZE ALL NEEDS AND AMBULATE WITHOUT ASSISTANCE. SAFETY MEASURES CONTINUE IN PLACE WITH BED IN LOWEST POSITION AND SIDERAIL UPX2. CALL LIGHT WITHIN REACH. WILL CONT TO MONITOR.
--- NOTE | 2021-10-25 19:15 | NUR ---
RN opening notes Pt is laying in bed comfortably watching TV. Pt is alert and orientedX4. Pt is clinical trial. On room air. No SOB. No S/S of distress noted. No IV sites. Ambulates with a steady gait. Safety precautions is maintained. Bed at low position, brakes locked, side rails upX2, hob elevated and call light is within reach. Will continue to monitor.
[2021-10-25] MEDS: INVEST MED MK-8189-008-02 MISC 1 DOSE PO SCH (19:36)
[2021-10-25 20:00] VITALS: BP 123/68
--- NOTE | 2021-10-26 07:30 | NUR ---
RN OPENING NOTE PATIENT RECEIVED RESTING IN BED AND WATCHING TV. NO VISUAL S/SX OF DISTRESS OR SOB. NO C/O PAIN. A/O X4. REMAINS ON CLINICAL TRIAL. ABLE TO VERBALIZE ALL NEEDS AND AMBULATE WITHOUT ASSISTANCE. SAFETY MEASURES CONTINUE IN PLACE WITH BED IN LOWEST POSITION AND SIDERAIL UPX2. CALL LIGHT WITHIN REACH. WILL CONT TO MONITOR.
[2021-10-26 08:00] VITALS: BP 107/49
--- NOTE | 2021-10-26 18:45 | NUR ---
RN CLOSING NOTE NO CHANGE IN PATIENT STATUS. NO VISUAL S/SX OF DISTRESS OR SOB. NO C/O PAIN. A/O X4. REMAINS ON CLINICAL TRIAL. ABLE TO VERBALIZE ALL NEEDS AND AMBULATE WITHOUT ASSISTANCE. SAFETY MEASURES CONTINUE IN PLACE WITH BED IN LOWEST POSITION AND SIDERAIL UPX2. CALL LIGHT WITHIN REACH. WILL CONT TO MONITOR.
--- NOTE | 2021-10-26 19:45 | NUR ---
MS RN OPENING NOTE RECEIVED PATIENT RESTING IN BED; AWAKE, ALERT AND ORIENTED X4. ON ROOM AIR; TOLERATING WELL. BREATHING IS EVEN AND NONLABORED. NOT IN ANY FORM OF RESPIRATORY DISTRESS. DENIES ANY PAIN OR DISCOMFORT OF THIS TIME. NO IV ACCESS. ON CLINICAL TRIAL. ABLE TO MAKE NEEDS KNOWN. SAFETY AND FALL PRECAUTIONS IMPLEMENTED: CALL LIGHT AND TABLE WITHIN EASY REACH, SIDE RAILS UP X2, BED IN LOWEST LOCKED POSITION. WILL CONTINUE TO MONITOR
[2021-10-26] MEDS: INVEST MED MK-8189-008-02 MISC 1 DOSE PO SCH (20:05)
[2021-10-26 20:10] VITALS: BP 117/45
[2021-10-26 20:37] VITALS: BP 117/75
[2021-10-27] MEDS: ACETAMINOPHEN ES 500 MG TABLET PO PRN (05:11)
--- NOTE | 2021-10-27 05:11 | NUR ---
RN NOTE PATIENT COMPLAINED OF HEADACHE; TYLENOL 1000 MG GIVEN PO ORDERED. WILL CONTINUE TO MONITOR
--- NOTE | 2021-10-27 06:51 | NUR ---
MS RN CLOSING NOTE PATIENT RESTING IN BED; AWAKE, A/OX4. STABLE ON ROOM AIR. BREATHING EVEN AND UNLABORED. IN NO ACUTE DISTRESS NOTED. NO COMPLAINTS OF PAIN OR DISCOMFORT OF THIS TIME. NO IV ACCESS. ON CLINICAL TRIAL. ALL DUE MEDS GIVEN. SAFETY AND FALL PRECAUTIONS IN PLACE; CALL LIGHT AND TABLE WITHIN EASY REACH, SIDE RAILS UP X2, BED IN LOWEST LOCKED POSITION. ENDORSED TO MORNING SHIFT FOR RANI.
[2021-10-27 08:00] VITALS: BP 114/74
--- NOTE | 2021-10-27 08:00 | NUR ---
RN OPENING NOTE PATIENT RECEIVED IN BED, CALM, AO X 4, ABLE TO RESPONDS ALL STIMULI. IN NO ACUTE DISTRESS NOTED. RESPIRATORY EVEN AND UNLABORED ON ROOM AIR. SKIN IS WARM TO TOUCH, KEEP CLEAN/DRY. KEPT ELEVATED HOB FOR ENSURE AIRWAY AND ASPIRATION PRECAUTION, ALSO LOWEST POSITION OF THE BED, S/R UP X 3, BED ALARM IS ON AT ALL THE TIMES. ALL SAFETY PRECAUTION APPLIED. CALL LIGHT WITHIN REACH, WILL CONTINUE TO MONITOR.
[2021-10-27 16:00] VITALS: BP 121/68
--- NOTE | 2021-10-27 18:10 | NUR ---
RN CLOSING NOTE PATIENT IN BED RESTING. IN NO ACUTE DISTRESS NOTED. RESPIRATORY EVEN AND UNLABORED ON ROOM AIR. SKIN IS WARM TO TOUCH, KEEP CLEAN/DRY. KEPT ELEVATED HOB FOR ENSURE AIRWAY AND ASPIRATION PRECAUTION, BED IN LOWEST POSITION AND LOCK. BED ALARM IS ON AT ALL THE TIMES. ALL SAFETY MEASURED IN PLACED. CALL LIGHT WITHIN REACH, WILL ENDORSED TO NEXT SHIFT.
--- NOTE | 2021-10-27 19:15 | NUR ---
MS RN OPENING NOTES: RECEIVED PATIENT IN BED, AWAKE, A/O X4. NO S/S OF DISTRESS NOTED. NO COMPLAIN OF PAIN. CALL LIGHT WITHIN REACH. BED IN LOWEST AND LOCKED POSITION. AMBULATORY.
[2021-10-27 20:00] VITALS: BP 112/72
[2021-10-27] MEDS: INVEST MED MK-8189-008-02 MISC 1 DOSE PO SCH (20:10)
--- NOTE | 2021-10-28 07:30 | NUR ---
RN MS NOTES PT IN BED, AWAKE, ALERT AND ORIENTED, EATING BREAKFAST, NO COMPLAINT AT THIS TIME, RESPIRATIONS NORMAL, CALL LIGHT WITHIN REACH, NO BEHAVIOR PROBLEM NOTED.
[2021-10-28 08:00] VITALS: BP 131/76
[2021-10-28 16:00] VITALS: BP 119/72
--- NOTE | 2021-10-28 17:30 | NUR ---
RN MS NOTES PT IN BED, WATCHING TV, EATING DINNER, NO COMPLAINTS, COMPLIANT WITH NURSING CARE.
[2021-10-28 20:00] VITALS: BP 115/76
[2021-10-28] MEDS: INVEST MED MK-8189-008-02 MISC 1 DOSE PO SCH (20:19)
--- NOTE | 2021-10-29 04:18 | NUR ---
CLOSING NOTES: ALERT AND ORIENTATED X4 PLEASENT AND COOPERATIVE SMILING AND IN [employer] AMB FREELY STEADY ON HER LEGS
[2021-10-29 08:00] VITALS: BP 163/84
--- NOTE | 2021-10-29 08:42 | NUR ---
RN Opening Notes Patient AOx4, able to express concerns. Pt calm, watching TV, call light within reach and bed at lowest position.
[2021-10-29 16:00] VITALS: BP 126/57
--- NOTE | 2021-10-29 18:22 | NUR ---
RN MS NOTES PT AWAKE, ALERT AND ORIENTED, WALKING ALONG THE HALLWAY WITH STEADY GAIT, NO COMPLAINT OF PAIN OR ANY DISCOMFORT, NO BEHAVIOR PROBLEM NOTED.
--- NOTE | 2021-10-29 19:45 | NUR ---
CT RN OPENING NOTE PATIENT AWAKE IN ROOM, ALERT/ORIENTED X 3, PT ABLE TO MAKE NEEDS KNOWN. PT DENIES PAIN AT THIS TIME. PT STABLE ON RA, NO S/S OF DISTRESS OR SOB NOTED, BREATHING EVEN AND UNLABORED. PATIENT CALM AND WATCHING TV. NO IV NOTED D/T CLINICAL TRIAL STATUS. PATIENT NPO AFTER 2200, PT VERBALIZED UNDERSTANDING. SAFETY MEASURES IN PLACE: CALL LIGHT WITHIN REACH, SIDE RAILS UP X 2, BED LOCKED IN LOWEST POSITION. WILL CONTINUE TO MONITOR PATIENT
[2021-10-29] MEDS: INVEST MED MK-8189-008-02 MISC 1 DOSE PO SCH (20:12)
[2021-10-29 20:22] VITALS: BP 115/65
--- NOTE | 2021-10-30 07:40 | NUR ---
RN OPENING NOTE PATIENT RECEIVED RESTING IN BED. NO VISUAL S/SX OF DISTRESS OR SOB. NO C/O PAIN. A/O X4. REMAINS ON CLINICAL TRIAL. ABLE TO VERBALIZE ALL NEEDS AND AMBULATE WITHOUT ASSISTANCE. SAFETY MEASURES CONTINUE IN PLACE WITH BED IN LOWEST POSITION AND SIDERAIL UPX2. CALL LIGHT WITHIN REACH. WILL CONT TO MONITOR.
[2021-10-30] MEDS ORDERED: LORAZEPAM 1 MG TABLET FOR AGITATION/ANXIETY PO PRN ×2 (12:00)
[2021-10-30] MEDS ORDERED: ZOLPIDEM TARTRATE 10 MG TABLET PO PRN ×2 (12:00)
--- NOTE | 2021-10-30 18:43 | NUR ---
RN CLOSING NOTE PATIENT OBSERVED TO BE AMBULATORY WITHOUT ASSIST. CURRENTLY ON NPO STATUS UNTIL 10/31/21. NO S/SX OF DISTRESS OR PAIN OBSERVED OR REPORTED. NO REQUEST FOR PRN MEDICATION. SAFETY MEASURES REMAIN IN PLACE WITH BED IN LOWEST POSITION AND LOCKED. SIDERAILS UP X2. CALL LIGHT WITHIN REACH. WILL CONT TO MONITOR.
[2021-10-30 20:00] VITALS: BP 108/75
[2021-10-30] MEDS: INVEST MED MK-8189-008-02 MISC 1 DOSE PO SCH (20:17)
--- NOTE | 2021-10-30 23:10 | NUR ---
RN NOTE ENDORSED TO CHARGE NURSE BEVERLEY FOR RANI
--- NOTE | 2021-10-31 12:39 | NUR ---
RN NOTE PATIENT DISCHARGE FROM FACILITY WITH BELONGINGS @ 1215 VIA PRIVATE CAR.
== END 2021-10-31 12:25 | disposition home or self-care (01) | DRG 951 ==
LOC: UNDOADMIN 14:03 → GPSOV 14:03 → MED 14:03 → GPSOV 20:37 → MED 10-10 08:38
PROVIDERS: ADMIT Psychiatry & Neurology Psychiatry; ATTEND Psychiatry & Neurology Psychiatry
DX: Z00.6 Encounter for examination for normal comparison and control in clinical research program (principal); F20.0 Paranoid schizophrenia
CPT/HCPCS: 36415; 84702-TC; 87081-TC; G0378

== ENCOUNTER 2022-04-27 09:33 | Inpatient (IN) | payer OTHER ==
[~2022-04-27] VITALS: Ht 157.5 cm; Wt 83.9 kg
[2022-04-27 15:30] VITALS: BP 120/83
[2022-04-27] MEDS ORDERED: MAG HYDROX/AL HYDROX/SIMETH 30 ML UDC PO PRN (15:30)
[2022-04-27] MEDS ORDERED: LORAZEPAM 1 MG TABLET FOR AGITATION PO PRN (15:30)
[2022-04-27] MEDS ORDERED: ZOLPIDEM TARTRATE 10 MG TABLET PO PRN (15:30)
[2022-04-27] MEDS ORDERED: MAGNESIUM HYDROXIDE 30 ML UDC PO PRN (15:30)
--- NOTE | 2022-04-27 16:00 | NUR ---
BLOCK ENGRAVER NOTES PATIENT RECEIVED VIA [facility]. PATIENT IS A/O X 4. PATIENT IS BREATHING EVENLY AND UNLABORED ON ROOM AIR. NO SIGNS OF DISTRESS NOTED. WITH STABLE VITALS SIGNS NOTED. PATIENT DENIES ANY PAIN OR DISCOMFORT AT THIS TIME. SKIN ASSESSMENT PERFORMED, SKIN IS INTACT. NO EDEMA PRESENT. BOWEL SOUNDS ACTIVE. NO IV ACCESS. PATIENT ORIENTED TO ROOM AND HOW TO USE CALL LIGHT. BELONGINGS ACCOUNT FOR. SAFETY MEASURES IN PLACE, BED IN LOW, LOCKED POSITION; SIDE RAILS UP X 2, CALL LIGHT WITHIN REACH.WILL CONTINUE TO MONITOR.
[2022-04-27 17:50] VITALS: BP 129/76
--- NOTE | 2022-04-27 18:25 | NUR ---
RN CLOSING NOTES PATIENT RESTING ON BED. A/O X 4. ABLE TO VERBALIZED CONCERNS.ABLE AMBULATES ALONE, NO SIGNS OF PAIN AND DISCOMFORT AT THIS TIME SIDE RAILS UP X 3 AT ALL TIMES. SAFETY PRECAUTIONS MAINTAINED. WILL ENDORSED PATIENT TO SENIOR IT PROJECT MANAGER
--- NOTE | 2022-04-27 19:30 | NUR ---
MS RN OPENING NOTES RECEIVED PT SLEEPING IN BED AT THIS TIME. A/O X4, ABLE TO VERBALIZE CONCERNS. ON RA WITH S/S OF RESPIRATORY DISTRESS. NO SIGNS OF PAIN AND DISCOMFORT AT THIS TIME. NO IV ACCESS NOTED. SAFETY MEASURES IN PLACE: BED LOCKED AND IN LOW POSITION, SIDERAILS UP X2, CALL LIGHT AND TRAY TABLE WITHIN REACH. WILL CONTINUE TO MONITOR AND ASSIST.
[2022-04-27] MEDS: RISPERDAL 0.5 MG PO SCH (22:29)
--- NOTE | 2022-04-28 07:15 | NUR ---
MS RN CLOSING NOTES PT AWAKE, AMBULATING IN ROOM AT THIS TIME. A/O X4, ABLE TO VERBALIZE CONCERNS. STABLE ON RA WITH NO S/S OF RESPIRATORY DISTRESS. NO SIGNS OF PAIN AND DISCOMFORT AT THIS TIME. NO IV ACCESS NOTED. ALL CARE PROVIDED AND MEDS TOLERATED WELL. SAFETY MEASURES MAINTAINED: BED LOCKED AND IN LOW POSITION, SIDERAILS UP X2, CALL LIGHT AND TRAY TABLE WITHIN REACH. WILL ENDORSE RANI TO DAY SHIFT NURSE.
--- NOTE | 2022-04-28 07:44 | NUR ---
RN OPENING NOTES RECEIVED PT AWAKE IN BED AT THIS TIME. A/O X4, ABLE TO VERBALIZE CONCERNS. ON RA WITH S/S OF RESPIRATORY DISTRESS. NO SIGNS OF PAIN AND DISCOMFORT AT THIS TIME. NO IV ACCESS NOTED. SAFETY MEASURES IN PLACE: BED LOCKED AND IN LOW POSITION, SIDERAILS UP X2, CALL LIGHT AND TRAY TABLE WITHIN REACH. WILL CONTINUE TO MONITOR AND ASSIST.
[2022-04-28 08:00] VITALS: BP 122/75
--- NOTE | 2022-04-28 15:44 | NUR ---
RN NOTES: INFORMED PT TO BRING MORE RISPERDAL PO PER PHARMACIST TO REMIND PT TO BRING FEW MORE TABLETS. INFORMED PT AND VERBALIZED UNDERSTANDING.
[2022-04-28 16:00] VITALS: BP 100/60
--- NOTE | 2022-04-28 18:31 | NUR ---
RN CLOSING NOTES PATIENT RESTING IN BED. CONSCIOUS AND COHERENT. NO IV ACCESS FOR NOW. NO COMPLAIN OF PAIN AND DIFFICULTY OF BREATHING NOTED. NO REPORT OF ANY BAHAVIORAL CHANGES NOTED, NO SIGNS OF BLEEDING NOTED. NEEDS ATTENDED WELL. SAFETY MEASURE IN PLACE: BED IN LOWEST POSITION AND LOCKED, SIDE RAILS X 2, BED ALARM ON, CALL LIGHT AND TRAY TABLE W/I REACH OF PT. WILL ENDORSE RANI IN LSAT INSTRUCTOR.
--- NOTE | 2022-04-28 19:40 | NUR ---
TELERN AWAKE, RESTING QUIETLY. NO NEEDS FOR NOW. V/S STABLE. SAFETY PRECAUTIONS EMPHASIZED, WELL UNDERSTOOD.
[2022-04-28 20:20] VITALS: BP 110/68
[2022-04-28] MEDS: RISPERDAL 0.5 MG PO SCH (21:59)
--- NOTE | 2022-04-28 22:30 | NUR ---
MSRN DUE MEDS GIVEN WENT BACK TO SLEEP.
--- NOTE | 2022-04-29 06:16 | NUR ---
MSRN GOOD AMOUNT OF SLEEP, 6HRS, NO NEEDS MADE
--- NOTE | 2022-04-29 07:41 | NUR ---
RN OPENING NOTES PT AWAKE IN BED AT THIS TIME. A/O X4, ON RA WITH S/S OF RESPIRATORY DISTRESS. NO SIGNS OF PAIN AND DISCOMFORT AT THIS TIME. NO IV ACCESS NOTED. NO EPS NOTED, NO TREMORS, NO BEHAVIORAL ISSUES, DENIES SI HI VH, SAFETY MEASURES IN PLACE: BED LOCKED AND IN LOW POSITION, SIDERAILS UP X2, CALL LIGHT AND TRAY TABLE WITHIN REACH. WILL CONTINUE TO MONITOR AND ASSIST.
[2022-04-29 08:00] VITALS: BP 117/62
--- NOTE | 2022-04-29 15:53 | NUR ---
RN NOTE- FAMILY BRINGING RISPERDAL FROM HOME TODAY
[2022-04-29 16:00] VITALS: BP 101/51
--- NOTE | 2022-04-29 18:25 | NUR ---
RN CLOSING NOTES PT AWAKE WALKING AROUND UNIT AND WATCHING TV. A/O X4, ON RA WITH S/S OF RESPIRATORY DISTRESS. DENIES PAIN. NO IV ACCESS NOTED. NO EPS NOTED, NO TREMORS, NO BEHAVIORAL ISSUES, DENIES SI HI VH, SAFETY MEASURES IN PLACE: BED LOCKED AND IN LOW POSITION, SIDERAILS UP X2, CALL LIGHT AND TRAY TABLE WITHIN REACH. WILL CONTINUE TO MONITOR AND ASSIST.
--- NOTE | 2022-04-29 19:30 | NUR ---
MS RN OPENING NOTES - RECEIVED PATIENT WALKING AROUND HER ROOM. A/O X4. BREATHING EVEN AND NON-LABORED ON ROOM AIR. NOT IN APPARENT DISTRESS. NO C/O PAIN OR DISCOMFORT AT THIS TIME. NO IV ACCESS, ON CLINICAL TRIAL. SAFETY PRECAUTIONS IN PLACE: BED LOCKED AND IN LOW POSITION, SIDE RAILS UP X2, CALL LIGHT WITHIN REACH. WILL CONTINUE TO MONITOR FOR SAFETY AND BEHAVIOR.
[2022-04-29 20:29] VITALS: BP 115/86
[2022-04-29] MEDS: RISPERDAL 0.5 MG PO SCH (21:16)
--- NOTE | 2022-04-30 07:00 | NUR ---
MS RN CLOSING NOTES - PATIENT SITTING IN BED, ABLE TO VERBALIZE NEEDS. NO ACUTE EVENTS THROUGHOUT THE NIGHT. AFEBRILE. DENIES PAIN AT THIS TIME. ALL DUE MEDS GIVEN AND NEEDS ATTENDED. SAFETY PRECAUTIONS MAINTAINED. WILL ENDORSE TO NEXT SHIFT FOR RANI.
--- NOTE | 2022-04-30 07:23 | NUR ---
MS RN OPENING NOTES - CLINICAL TRIAL RECEIVED PT IN ROOM, WAS JUST BACK FROM [facility] ROOM,A/O X4, COOPERATIVE, ABLE TO MAKE NEEDS FULLY KNOWN, ON ROOM AIR WITH NO S/S OF RESPIRATORY DISTRESS. DENIES PAIN NOR DISCOMFORT. NO IV ACCESS NOTED PER PROTOCOL. NO BEHAVIORAL ISSUES NOTED DURING THIS TIME. SAFETY MEASURES IN PLACE: BED LOCKED AND IN LOWEST POSITION, SIDERAILS UP X2, CALL LIGHT AND TRAY TABLE WITHIN REACH. WILL CONTINUE TO MONITOR THROUGHOUT THE DAY.
[2022-04-30 08:00] VITALS: BP 108/59
[2022-04-30 16:00] VITALS: BP 124/97
--- NOTE | 2022-04-30 18:36 | NUR ---
RN CLOSING NOTES - CLINICAL TRIAL PT AWAKE IN BED, WATCHING TV. A/O X4, COOPERATIVE, ON RA WITH S/S OF RESPIRATORY DISTRESS. DENIES PAIN NOR DISCOMFORT. NO IV ACCESS NOTED. PATIENT DIDN'T HAVE ANY BEHAVIORAL ISSUES DURING MY SHIFT. ALL NEEDS MET. SAFETY MEASURES MAINTAINED: BED LOCKED AND IN LOW POSITION, SIDERAILS UP X2, CALL LIGHT AND TRAY TABLE WITHIN REACH. WILL ENDORSE TO OPTICAL MECHANIC APPRENTICE NURSE.
--- NOTE | 2022-04-30 19:30 | NUR ---
MS RN OPENING NOTES - RECEIVED PATIENT AWAKE IN BED. A/O X4. BREATHING EVEN AND NON-LABORED ON ROOM AIR. NOT IN APPARENT DISTRESS. CALM AND IN GOOD MOOD. NO C/O PAIN OR DISCOMFORT AT THIS TIME. NO IV ACCESS, ON CLINICAL TRIAL. SAFETY PRECAUTIONS IN PLACE: BED LOCKED AND IN LOWEST POSITION, SIDE RAILS UP X2, CALL LIGHT WITHIN REACH. WILL CONTINUE PLAN OF CARE.
[2022-04-30 20:00] VITALS: BP 125/78
--- NOTE | 2022-05-01 06:34 | NUR ---
MS RN CLOSING NOTES - PATIENT AWAKE IN BED, NO ACUTE EVENTS THROUGHOUT THE NIGHT. NO UNUSUAL BEHAVIOR NOTED. DENIES PAIN AT THIS TIME. ALL NEEDS ATTENDED AND ANTICIPATED. SAFETY PRECAUTIONS MAINTAINED. WILL ENDORSE TO NEXT SHIFT FOR CONTINUITY OF CARE.
--- NOTE | 2022-05-01 07:20 | NUR ---
MS RN OPENING NOTES - CLINICAL TRIAL RECEIVED PT IN THE HALLWAY GOING TO HER ROOM, AOX4, COOPERATIVE, ABLE TO MAKE NEEDS FULLY KNOWN, ON ROOM AIR WITH NO S/S OF RESPIRATORY DISTRESS. DENIES PAIN NOR DISCOMFORT AT THIS TIME. NO IV ACCESS NOTED PER PROTOCOL. SAFETY MEASURES IN PLACE: BED LOCKED AND IN LOWEST POSITION, SIDE-RAILS UP X2, CALL LIGHT AND TRAY TABLE WITHIN REACH. WILL CONTINUE TO MONITOR THROUGHOUT THE DAY.
[2022-05-01 08:00] VITALS: BP 135/57
--- NOTE | 2022-05-01 09:52 | NUR ---
UPDATED HT AND WEIGHT OF TODAY, BED SCALE CALIBRATED
--- NOTE | 2022-05-01 18:28 | NUR ---
RN CLOSING NOTES - CLINICAL TRIAL PT AWAKE IN BED, WATCHING TV. A/O X4, COOPERATIVE, ON RA WITH S/S OF RESPIRATORY DISTRESS. DENIES PAIN NOR DISCOMFORT. NO IV ACCESS NOTED. PATIENT DIDN'T HAVE ANY BEHAVIORAL ISSUES DURING THIS SHIFT. ALL NEEDS MET, DIDN'T ASK FOR ANY MEDICATIONS. SAFETY MEASURES MAINTAINED: BED LOCKED AND IN LOW POSITION, SIDERAILS UP X2, CALL LIGHT AND TRAY TABLE WITHIN REACH. WILL ENDORSE TO SERVICE OR WORK DISPATCHER NURSE.
--- NOTE | 2022-05-01 19:30 | NUR ---
noc rn opening Patient rounded at this time, in bed resting. a/ox4. introduced myself. patient not exhibiting s/s of apparent distress in room air. patient encouraged verbalized needs and concerns. will continue with the plan for patient.
[2022-05-01 20:00] VITALS: BP 128/83
--- NOTE | 2022-05-02 06:29 | NUR ---
noc rn closing note patient in room, a/ox4. no s/s of apparent distress in room air. no c/o pain. per patient she peed 3x last night. reports no BM. per patient she have not seen Doctor Hahn. might start her on ID meds on Wednesday. will endorse to morning rn for continuity of care.
--- NOTE | 2022-05-02 07:02 | NUR ---
MS RN OPENING NOTES RECEIVED PATIENT AWAKE IN ROOM, A/Ox4, ON ROOM AIR. NO S/S OF RESPIRATORY DISTRESS. PATIENT AMBULATORY, HAS BATHROOM PRIVILEGE. NO IV ACCESS, PATIENT IS CLINICAL TRAIL. SKIN INTACT. SAFETY MEASURES IN PLACE: BED LOCKED AND IN LOWEST POSITION, HOB ELEVATED, SIDE RAILS UPx2, CALL LIGHT WITHIN REACH WILL CONTINUE TO MONITOR.
[2022-05-02 08:00] VITALS: BP 103/55
[2022-05-02 16:00] VITALS: BP 133/74
--- NOTE | 2022-05-02 18:40 | NUR ---
MS RN CLOSING NOTES PATIENT AWAKE IN ROOM, A/Ox4, STABLE ON ROOM AIR. NO S/S OF RESPIRATORY DISTRESS. PATIENT AMBULATORY, HAS BATHROOM PRIVILEGE. NO IV ACCESS, PATIENT IS CLINICAL TRAIL. SKIN INTACT. SAFETY MEASURES MAINTAINED: BED LOCKED AND IN LOWEST POSITION, HOB ELEVATED, SIDE RAILS UPx2, CALL LIGHT WITHIN REACH. WILL ENDORSE TO NEXT SHIFT ANY RANI.
--- NOTE | 2022-05-02 19:30 | NUR ---
MS RN OPENING NOTE RECEIVED PATIENT SLEEPING IN BED. PATIENT A/O x 4, ABLE TO MAKE NEEDS KNOW. ON ROOM AIR, AND TOLERATING RA WELL. NO S/S OF RESPIRATORY DISTRESS. PATIENT ABLE TO AMBULATE TO BATHROOM. NO IV ACCESS, PATIENT IS A CLINICAL TRAIL. SKIN INTACT. SAFETY MEASURES IN PLACE: BED LOCKED AND IN LOWEST POSITION, HOB ELEVATED, SIDE RAILS UP x 2, CALL LIGHT WITHIN REACH. WILL CONTINUE TO MONITOR PATIENT.
[2022-05-02 20:00] VITALS: BP 106/66
[2022-05-03] MEDS: ACETAMINOPHEN ES 500 MG TABLET PO PRN (00:35)
--- NOTE | 2022-05-03 00:35 | NUR ---
MS RN NOTE PT C/O TOOTH ACHE. TYLENOL 1000 MG ADMINISTERED TO PT FOR PAIN.
--- NOTE | 2022-05-03 06:40 | NUR ---
MS RN CLOSING NOTE LEFT PATIENT AWAKE IN ROOM, A/Ox4, STABLE ON ROOM AIR. NO S/S OF RESPIRATORY DISTRESS. PATIENT AMBULATORY. NO IV ACCESS, PATIENT IN CLINICAL TRAIL. SKIN INTACT. SAFETY MEASURES MAINTAINED: BED LOCKED AND IN LOWEST POSITION, HOB ELEVATED, SIDE RAILS UPx2, CALL LIGHT WITHIN REACH. WILL ENDORSE TO NEXT SHIFT ANY RANI.
[2022-05-03 08:00] VITALS: BP 101/57
[2022-05-03] MEDS: IBUPROFEN 200 MG TABLET PO PRN (15:34)
--- NOTE | 2022-05-03 15:38 | NUR ---
RN NOTES PATIENT COMPLAINED OF PAIN 07/13, REQUESTED MOTRIN. PRN MOTRIN ADMINISTERED. WILL CONTINUE TO MONITOR.
[2022-05-03 16:00] VITALS: BP 129/67
--- NOTE | 2022-05-03 19:15 | NUR ---
MS RN OPENING NOTES RECEIVED PT AWAKE IN ROOM, A/Ox4, ON ROOM AIR. NO S/S OF RESPIRATORY DISTRESS. PATIENT AMBULATORY, HAS BATHROOM PRIVILEGE. NO IV ACCESS, PATIENT IS IN CLINICAL TRIAL. SKIN INTACT. SAFETY MEASURES IN PLACE: BED LOCKED AND IN LOWEST POSITION, HOB ELEVATED, SIDE RAILS UPx2, CALL LIGHT WITHIN REACH. WILL CONTINUE TO MONITOR AND ASSIST.
[2022-05-03 20:00] VITALS: BP 116/77
[2022-05-04] MEDS: ACETAMINOPHEN ES 500 MG TABLET PO PRN (01:04)
--- NOTE | 2022-05-04 07:00 | NUR ---
MS RN CLOSING NOTES PT AWAKE IN ROOM, A/Ox4, STABLE ON ROOM AIR. NO S/S OF RESPIRATORY DISTRESS. PATIENT AMBULATORY, HAS BATHROOM PRIVILEGE. NO IV ACCESS, PATIENT IS IN CLINICAL TRIAL. SKIN INTACT. C/O TOOTHACHE, STATES TO HAVE A DENTIST APPOINTMENT LATER TODAY. ALL CARE PROVIDED AND MEDS TOLERATED WELL. SAFETY MEASURES IN PLACE: BED LOCKED AND IN LOWEST POSITION, HOB ELEVATED, SIDE RAILS UPx2, CALL LIGHT WITHIN REACH. WILL ENDORSE RANI TO DAY SHIFT NURSE.
--- NOTE | 2022-05-04 07:40 | NUR ---
RN NOTE- PT WITH EDEMATOUS LEFT JAW FROM TOOTH INFECTION. DENTAL APPOINTMENT SCHEDULED FOR THIS AM AT 1000. FAMILY TO TRANSPORT.
--- NOTE | 2022-05-04 07:41 | NUR ---
RN OPENING NOTES RECEIVED PATIENT LYING IN BED. CONSCIOUS AND COHERENT. ABLE TO VERBALIZED CONCERNS. BOTH LUNGS ARE CLEAR. NO DIFFICULTY OF BREATHING NOTED. ON FULL CODE. AMBULATORY. PATIENT COMPLAINS OF TOOTHACHE COMFORT MEASURES APPLIED. WITH ACTIVE BOWEL SOUNDS. SAFETY MEASURES MAINTAIN. KEPT SIDE RAILS UP X 2.KEPT BED ON LOWERED LOCKED POSITION. NO IV ACCESS NOTED. WILL CONTINUE TO MONITOR PATIENT CONDITION.
[2022-05-04 08:00] VITALS: BP 124/72
[2022-05-04 10:26] VITALS: BP 124/72
[2022-05-04 16:00] VITALS: BP 120/66
--- NOTE | 2022-05-04 18:33 | NUR ---
RN CLOSING NOTES PATIENT IN BED, AWAKE, CONSCIOUS AND COHERENT. NO IV ACCESS . PATIENT GOT DENTAL CHECK UP TODAY WITH MEDICATIONS ORDERED. NO PAIN AN DISCOMFORT NOTED AT THIS TIME. KEPT BED ON LOWERED LOCKED POSITION AND KEPT SIDE RAILS UP X 2. ALL DUE MEDICATIONS GIVEN. ALL NEEDS MET.KEPT PATIENT WARM AND COMFORTABLE. SAFETY MEASURED MAINTAINED. ENDORSED TO ICHTHYOLOGIST FOR RANI.
[2022-05-04] MEDS: AMOXICILLIN 500 MG PO SCH (18:45)
--- NOTE | 2022-05-04 19:05 | NUR ---
MS RN OPENING NOTES PATIENT IS SLEEPING IN BED; EASILY BEING AROUSED. SHE IS ALERT AND ORIENTED, AO X 4. SHE IS ON RA, TOLERATED WELL. NO S/S OF SOB OR DISTRESS. PATIENT DENIES OF HAVING PAIN AT THIS MOMENT. PATIENT IS ON CLINICAL TRIAL AND THE TRIAL WILL START ON 05/08/2022. SAFETY PRECAUTIONS ARE IN PLACED: BED IN LOWEST AND LOCKED POSITION; SIDE RAILS UP X 2; CALL LIGHT AND TABLE ARE WITHIN REACH. INSTRUCTED THE PATIENT TO CALL FOR HELP IF SHE NEEDS ANYTHING; PATIENT VERBALIZED UNDERSTANDING. WILL CONTINUE MONITOR THE PATIENT AND PROVIDE THE CARE PATIENT NEEDS.
[2022-05-04 20:00] VITALS: BP 101/41
[2022-05-04 20:05] VITALS: BP 126/49
--- NOTE | 2022-05-04 20:05 | NUR ---
MS RN NOTE RECHECKED PATIENT'S BP AND O2 SAT. BP IS 126/49; O2 SAT IS 95% ON RA. PATIENT IS ASYMPTOMATIC. NO S/S OF SOB OR DISTRESS. PATIENT STATED THAT HER BP HAS BEEN ON THE LOW SIDE.
--- NOTE | 2022-05-04 20:10 | NUR ---
MS RN NOTE PT HAS SWELLING ON HER LEFT SIDE OF THE FACE. NO COMPLAINS OF PAIN NOW. ONE ICE PACK PROVIDED TO THE PATIENT AND INSTRUCTED THE PATIENT TO APPLY TO HER LEFT SIDE OF THE FACE IF SHE FEELS PAIN OR DISCOMFORT.
[2022-05-04] MEDS: IBUPROFEN 200 MG TABLET PO PRN (21:57)
--- NOTE | 2022-05-04 21:57 | NUR ---
MS RN NOTE PATIENT STATED SHE HAD PAIN AT HER LEFT SIDE OF THE TOOTH. THE PAIN LEVEL IS 6 OUT OF 10. PRN MEDICATION MOTRIN PO GIVEN PER MD ORDER.
[2022-05-05] MEDS ORDERED: AMOXICILLIN TRIHYDRATE 250 MG CAPSULE ONE (02:39)
[2022-05-05] MEDS: AMOXICILLIN 500 MG PO SCH ×3 (02:44→20:08)
--- NOTE | 2022-05-05 02:45 | NUR ---
MS RN NOTE THE MEDICATION, AMOXICILLIN 500 MG, DUE AT 0300 ARE NOT IN THE [facility] OR IN THE OMNICELL UNDER THIS PATIENT'S NAME. NOTIFIED THE CHARGE NURSE, ESHA, AND RECEIVED THE MEDICATION FROM THE CHARGE NURSE. MEDICATION IS ADMINISTERED TO THE PATIENT PER MD ORDER.
--- NOTE | 2022-05-05 06:55 | NUR ---
MS RN CLOSING NOTE PATIENT IS SITING AT THE SIDE OF HER BE. SHE IS ALERT AND ORIENTED, AO X 4. SHE IS ON RA, TOLERATED WELL. NO S/S OF SOB OR DISTRESS. PATIENT DENIES OF HAVING PAIN AT THIS MOMENT. PATIENT IS ON CLINICAL TRIAL AND THE TRIAL WILL START ON 05/08/2022. SAFETY PRECAUTIONS ARE IN PLACED: BED IN LOWEST AND LOCKED POSITION; SIDE RAILS UP X 2; CALL LIGHT AND TABLE ARE WITHIN REACH. WILL ENDORSE NEXT SHIFT NURSE FOR CONTINUING PATIENT CARE.
[2022-05-05 08:00] VITALS: BP 103/67
[2022-05-05] MEDS: IBUPROFEN PO PRN (12:01)
[2022-05-05 16:00] VITALS: BP 113/72
--- NOTE | 2022-05-05 18:21 | NUR ---
END OF SHIFT SUMMARY PATIENT IS UNDER CLINICAL TRIAL, A/O X4, AMBULATORY WITH STEADY GAIT. ABLE TO MAKE NEEDS KNOWN. ANTIBIOTICS GIVEN ORDERED. PAIN MANAGED WITH IBUPROFEN. SAFETY MEASURES MAINTAINED. BED IN LOWEST POSITION, BRAKES LOCKED. SIDE RAILS UP X2. CALL LIGHT WITHIN REACH. WILL ENDORSE CONTINUITY OF CARE TO ONCOMING SHIFT.
--- NOTE | 2022-05-05 19:10 | NUR ---
MS RN OPENING NOTES PATIENT IS SLEEPING IN BED; EASILY BEING AROUSED. SHE IS ALERT AND ORIENTED, AO X 4. SHE IS ON RA, TOLERATED WELL. NO S/S OF SOB OR DISTRESS. PATIENT DENIES OF HAVING PAIN AT THIS MOMENT. PATIENT IS ON CLINICAL TRIAL AND THE TRIAL WILL START ON 05/08/2022. SAFETY PRECAUTIONS ARE IN PLACED: BED IS IN LOWEST AND LOCKED POSITION; SIDE RAILS UP X 2; CALL LIGHT AND TABLE ARE WITHIN REACH. INSTRUCTED THE PATIENT TO CALL FOR HELP IF SHE NEEDS ANYTHING; PATIENT VERBALIZED UNDERSTANDING. WILL CONTINUE MONITOR THE PATIENT AND PROVIDE THE CARE PATIENT NEEDS.
[2022-05-05 20:00] VITALS: BP 117/58
[2022-05-06] MEDS: AMOXICILLIN 500 MG PO SCH ×3 (04:09→20:44)
[2022-05-06 07:00] VITALS: BP 112/75
--- NOTE | 2022-05-06 07:23 | NUR ---
MS RN CLOSING NOTES PATIENT IS AWAKE IN BED WATCHING TV. SHE IS ALERT AND ORIENTED, AO X 4. SHE IS ON RA, TOLERATED WELL. NO S/S OF SOB OR DISTRESS. PATIENT DENIES OF HAVING PAIN AT THIS MOMENT. PATIENT IS ON CLINICAL TRIAL AND THE TRIAL WILL START ON 05/08/2022. THROUGHOUT THE SHIFT, PATIENT HAS BEEN CALM AND COOPERATIVE; NO BEHAVIORAL CHANGES. SAFETY PRECAUTIONS ARE IN PLACED: BED IS IN LOWEST AND LOCKED POSITION; SIDE RAILS UP X 2; CALL LIGHT AND TABLE ARE WITHIN REACH. WILL ENDORSE NEXT SHIFT NURSE FOR CONTINUING PATIENT CARE.
[2022-05-06] MEDS: ACETAMINOPHEN ES 500 MG TABLET PO PRN (13:23)
--- NOTE | 2022-05-06 13:38 | NUR ---
RN NOTES PATIENT COMPLAINED OF MILD PAIN OF FACE DUE TO TOOTHACHE. PRN TYLENOL ES ADMINISTERED. WILL CONTINUE TO MONITOR.
[2022-05-06 16:00] VITALS: BP 131/76
--- NOTE | 2022-05-06 18:39 | NUR ---
MS RN CLOSING NOTES PATIENT AWAKE IN ROOM, A/Ox4, ON ROOM AIR. NO S/S OF RESPIRATORY DISTRESS. PATIENT AMBULATORY, HAS BATHROOM PRIVILEGE. NO IV ACCESS, PATIENT IS CLINICAL TRAIL. SKIN INTACT. SAFETY MEASURES MAINTAINED: BED LOCKED AND IN LOWEST POSITION, HOB ELEVATED, SIDE RAILS UPx2, CALL LIGHT WITHIN REACH. WILL ENDORSE TO NEXT SHIFT ANY RANI.
--- NOTE | 2022-05-06 19:49 | NUR ---
Received in bed sitter at the bedside patient is confused he is talking random conversation when attempt to reposition he verbally became angry and pulled away from nurses diaper on d/t incontinence noted a abd binder on and feeding via peg on going changing his own position independently bed alarm on
[2022-05-06 20:00] VITALS: BP 97/59
[2022-05-07] MEDS: AMOXICILLIN 500 MG PO SCH ×3 (04:39→22:06)
[2022-05-07] MEDS: IBUPROFEN PO PRN (04:42)
--- NOTE | 2022-05-07 05:35 | NUR ---
CLOSING NOTES: ALERT AND ORIENTATED X4 AMBULATES THE HALLWAY STEADY ON HER LEGS GOOD HYGIENE COOP-ERATIVE AND PLEASANT MEDICATED X1 FOR TOOTH PAIN ATB GIVEN ORDERED
[2022-05-07 07:00] VITALS: BP 130/83
--- NOTE | 2022-05-07 07:15 | NUR ---
MS RN OPENING NOTES RECEIVED PATIENT AWAKE IN ROOM, A/Ox4, ON ROOM AIR. NO S/S OF RESPIRATORY DISTRESS. PATIENT AMBULATORY, HAS BATHROOM PRIVILEGE. NO IV ACCESS, PATIENT IS CLINICAL TRAIL. SKIN INTACT. SAFETY MEASURES IN PLACE: BED LOCKED AND IN LOWEST POSITION, HOB ELEVATED, SIDE RAILS UPx2, CALL LIGHT WITHIN REACH. WILL CONTINUE TO MONITOR.
[2022-05-07] MEDS: IBUPROFEN 200 MG TABLET PO PRN (15:51)
[2022-05-07 16:00] VITALS: BP 136/90
--- NOTE | 2022-05-07 16:00 | NUR ---
RN NOTES PATIENT COMPLAINED OF PAIN, PRN MOTRIN ADMINISTERED. WILL CONTINUE TO MONITOR.
--- NOTE | 2022-05-07 18:40 | NUR ---
MS RN CLOSING NOTES PATIENT AWAKE IN ROOM, A/Ox4, STABLE ON ROOM AIR. NO S/S OF RESPIRATORY DISTRESS. PATIENT AMBULATORY, HAS BATHROOM PRIVILEGE. NO IV ACCESS, PATIENT IS CLINICAL TRAIL. SKIN INTACT. ALL PRESCRIBED MEDICATION ADMINISTERED. SAFETY MEASURES MAINTAINED: BED LOCKED AND IN LOWEST POSITION, HOB ELEVATED, SIDE RAILS UPx2, CALL LIGHT WITHIN REACH. WILL ENDORSE TO NEXT SHIFT ANY RANI.
[2022-05-07 20:00] VITALS: BP 107/75
--- NOTE | 2022-05-07 20:26 | NUR ---
MS RN NOTES PATIENT AWAKE IN ROOM, A/Ox4, STABLE ON ROOM AIR. NO S/S OF RESPIRATORY DISTRESS. PATIENT AMBULATORY, HAS BATHROOM PRIVILEGE. NO IV ACCESS, PATIENT IS CLINICAL TRAIL. SKIN INTACT. SAFETY MEASURES MAINTAINED: BED LOCKED AND IN LOWEST POSITION, HOB ELEVATED, SIDE RAILS UPx2, CALL LIGHT WITHIN REACH.
[2022-05-08] MEDS: AMOXICILLIN 500 MG PO SCH ×3 (05:18→20:27)
[2022-05-08] MEDS: IBUPROFEN PO PRN (05:42)
--- NOTE | 2022-05-08 05:43 | NUR ---
RN NOTE PRN IBUPROFEN GIVEN FOR TOOTH PAIN TOLERATED WELL
--- NOTE | 2022-05-08 06:55 | NUR ---
RN NOTE PT A/OX4 AWAKE IN BED WITH FAMILY AT BEDSIDE. PT ON ROOM AT TOLERATING WELL. PT NOTED WITH LAC #20G RUNNING D5 1/2 NS @100ML/HR TOLERATING WELL. NO PAIN OR DISCOMFORT AT THIS TIME. ALL NEEDS MET. HOB ELEVATED. CALL LIGHT WITHIN REACH. TABLE WITHIN REACH.WILL ENDORSE CARE TO DAY SHIFT NURSE.
[2022-05-08 07:00] VITALS: BP 119/80
[2022-05-08] MEDS ORDERED: INVEST MED CVL-231-2002 PO SCH (10:00)
[2022-05-08] MEDS ORDERED: LORAZEPAM 1 MG TABLET FOR AGITATION PO PRN (13:00)
[2022-05-08] MEDS ORDERED: ZOLPIDEM TARTRATE 10 MG TABLET PO PRN (13:00)
[2022-05-08 16:00] VITALS: BP 131/76
--- NOTE | 2022-05-08 18:50 | NUR ---
MS RN CLOSING NOTES PATIENT AWAKE IN ROOM, A/Ox4, STABLE ON ROOM AIR. NO S/S OF RESPIRATORY DISTRESS. PATIENT AMBULATORY, HAS BATHROOM PRIVILEGE. NO IV ACCESS, PATIENT IS CLINICAL TRAIL. ALL PRESCRIBED MEDICATION ADMINISTERED. SAFETY MEASURES MAINTAINED: BED LOCKED AND IN LOWEST POSITION, HOB ELEVATED, SIDE RAILS UPx2, CALL LIGHT WITHIN REACH. WILL ENDORSE TO NEXT SHIFT FOR RANI.
--- NOTE | 2022-05-08 19:23 | NUR ---
MS RN OPENING NOTES PATIENT AWAKE IN ROOM, A/Ox4, STABLE ON ROOM AIR. NO S/S OF RESPIRATORY DISTRESS. PATIENT AMBULATORY, HAS BATHROOM PRIVILEGE. NO IV ACCESS, PATIENT IS CLINICAL TRAIL. ALL PRESCRIBED MEDICATION ADMINISTERED. SAFETY MEASURES MAINTAINED: BED LOCKED AND IN LOWEST POSITION, HOB ELEVATED, SIDE RAILS UPx2, CALL LIGHT WITHIN REACH.
[2022-05-08 20:00] VITALS: BP 128/76
[2022-05-09] MEDS: AMOXICILLIN 500 MG PO SCH ×4 (05:08→21:36)
--- NOTE | 2022-05-09 07:30 | NUR ---
MS RN OPENING NOTE RECEIVED PT AWAKE AND RESTING IN BED. PT IS UNDER CLINICAL TRIAL. PT IS A/OX4, ABLE TO MAKE NEEDS ATTENDED. PT IS ON O2 ROOM AIR, TOLERATING WELL. NO SOB NOTED. NOT IN ANY SIGN OF RESPIRATORY DISTRESS. PT HAS NO IV ACCESS. SAFETY MEASURES IN PLACE: BED IN LOWEST AND LOCKED POSITION, SIDE RAILS UPX2, AND CALL LIGHT WITHIN REACH. WILL CONTINUE TO MONITOR PT.
[2022-05-09 08:00] VITALS: BP 127/87
[2022-05-09] MEDS: INVEST MED CVL-231-2002 PO SCH (10:03)
--- NOTE | 2022-05-09 13:04 | NUR ---
RN NOTE AMOXICILLIN ANTIBIOTIC MEDICATION SCHEDULED AT 1300 NOT ADMINISTERED. DRUG WAS NOT AVAILABLE AT THE [facility]. CALLED PHARMACY TO FOLLOW UP, PER PHARMACIST THEY WILL LOOK INTO IT.
--- NOTE | 2022-05-09 15:51 | NUR ---
RN NOTE FOLLOWED UP THE AMOXICILLIN ANTIBIOTIC MEDICATION AGAIN THAT WAS SCHEDULED AT 1300. DRUG WAS STILL NOT AVAILABLE AT THE [facility]. PER PHARMACIST THEY ARE STLL LOOKING INTO IT.
[2022-05-09 16:00] VITALS: BP 109/64
--- NOTE | 2022-05-09 16:11 | NUR ---
RN NOTE JUST RECEIVE THE AMOXICILLIN ANTIBIOTIC MEDICATION FROM THE PHARMACIST AND ADMINISTERED TO THE PT ORDERED.
--- NOTE | 2022-05-09 18:43 | NUR ---
MS RN CLOSING NOTE PT AWAKE AND RESTING IN BED. PT IS UNDER CLINICAL TRIAL. PT IS A/OX4, ABLE TO MAKE NEEDS ATTENDED. PT IS ON ROOM AIR, TOLERATING WELL. NO SOB NOTED. NOT IN ANY SIGN OF RESPIRATORY DISTRESS. PT HAS NO IV ACCESS. ALL NEEDS ATTENDED. KEPT CLEAN AND COMFORTABLE AT ALL TIMES. SAFETY MEASURES IN PLACE: BED IN LOWEST AND LOCKED POSITION, SIDE RAILS UPX2, AND CALL LIGHT WITHIN REACH. WILL ENDORSE TO APPLICATIONS PROGRAMMER ANALYST NURSE FOR RANI.
[2022-05-09 19:32] VITALS: BP 110/60
--- NOTE | 2022-05-09 19:35 | NUR ---
received in bed asleeo resp even and unlabored
[2022-05-09 20:00] VITALS: BP 110/60
[2022-05-10] MEDS: AMOXICILLIN 500 MG PO SCH ×3 (04:38→20:24)
--- NOTE | 2022-05-10 05:11 | NUR ---
CLOSING NOTES: ALERT AND ORIENTATED X4 AMBULATES IN THE CORRIDOR STEADY ON HER LEGS MOVED TO ROOM 117 D/T HER SINK IN HER ROOM IS NOT FUNCTIONING ATB GIVEN ORDERED FOR TOOTH PAIN ON GOING NO C/O PAIN THIS 12 HOURS BEHAVIOR APPROPRIATE NOTED WHEN TALKING SHE WILL NOT HAVE EYE CONTACT
[2022-05-10 07:00] VITALS: BP 129/81
[2022-05-10] MEDS: INVEST MED CVL-231-2002 PO SCH (10:00)
[2022-05-10 16:00] VITALS: BP 129/90
--- NOTE | 2022-05-10 19:05 | NUR ---
MS RN OPENING NOTES PATIENT IS SLEEPING IN BED; EASILY BEING AROUSED. SHE IS ALERT AND ORIENTED, AO X 4. SHE IS ON RA, TOLERATED WELL. NO S/S OF SOB OR DISTRESS. PATIENT DENIES OF HAVING PAIN AT THIS MOMENT. PATIENT IS ON CLINICAL TRIAL AND THE TRIAL STARTED ON 05/08/2022. SAFETY PRECAUTIONS ARE IN PLACED: BED IS IN LOWEST AND LOCKED POSITION; SIDE RAILS UP X 2; CALL LIGHT AND TABLE ARE WITHIN REACH. INSTRUCTED THE PATIENT TO CALL FOR HELP IF SHE NEEDS ANYTHING; PATIENT VERBALIZED UNDERSTANDING. WILL CONTINUE MONITOR THE PATIENT AND PROVIDE THE CARE PATIENT NEEDS.
--- NOTE | 2022-05-10 19:06 | NUR ---
MS RN CLOSING NOTE PT AWAKE AND RESTING IN BED. PT IS UNDER CLINICAL TRIAL. PT IS A/OX4, ABLE TO MAKE NEEDS ATTENDED. PT IS ON O2 ROOM AIR, TOLERATING WELL. NO SOB NOTED. NOT IN ANY SIGN OF RESPIRATORY DISTRESS. PT HAS NO IV ACCESS. PT HAS NO EPISODES OF UNTOWARD BEHAVIOR. ALL NEEDS ATTENDED. KEPT CLEAN AND COMFORTABLE AT ALL TIMES. SAFETY MEASURES IN PLACE: BED IN LOWEST AND LOCKED POSITION, SIDE RAILS UPX2, AND CALL LIGHT WITHIN REACH. ENDORSED TO ELECTRONIC CALIBRATION TECHNICIAN NURSE FOR RANI
[2022-05-10 20:00] VITALS: BP 117/68
[2022-05-11] MEDS: AMOXICILLIN 500 MG PO SCH ×2 (04:17→14:49)
--- NOTE | 2022-05-11 07:15 | NUR ---
MS RN CLOSING NOTES PATIENT IS AWAKE AND STAYING IN BED. SHE IS ALERT AND ORIENTED, AO X 4. SHE IS ON RA, TOLERATED WELL. NO S/S OF SOB OR DISTRESS. PATIENT DENIES OF HAVING PAIN AT THIS MOMENT. DURING THE SHIFT, PATIENT DID NOT HAVE ANY BEHAVIORAL CHANGES. SAFETY PRECAUTIONS ARE IN PLACED: BED IS IN LOWEST AND LOCKED POSITION; SIDE RAILS UP X 2; CALL LIGHT AND TABLE ARE WITHIN REACH. WILL ENDORSE NEXT SHIFT NURSE TO FOLLOW UP WITH THE AMOXICILLIN MEDICATION WITH DR. HARRIS TODAY.
--- NOTE | 2022-05-11 07:30 | NUR ---
MS RN OPENING NOTES RECEIVED PATIENT ON BED AWAKE AND A/O X4. ON ROOM AIR TOLERATING WELL. NO SOB NOTED. NOT IN DISTRESS. WITH NO COMPLAINTS OF PAIN OR DISCOMFORT AT THIS TIME. WITH NO IV ACCESS. ON CLINICAL TRIAL STATUS. SAFETY MEASURES IN PLACED. CALL LIGHT WITHIN REACH. BED ON LOWEST LOCKED POSITION, SIDE RAILS UP X2. WILL CONTINUE TO MONITOR.
[2022-05-11 08:00] VITALS: BP 134/76
[2022-05-11] MEDS ORDERED: AMOXICILLIN 500 MG PO SCH (09:00)
[2022-05-11] MEDS: INVEST MED CVL-231-2002 PO SCH (10:00)
[2022-05-11 16:00] VITALS: BP 125/82
--- NOTE | 2022-05-11 18:29 | NUR ---
MS RN CLOSING NOTES PATIENT ON BED AWAKE AND A/O X4. ON ROOM AIR TOLERATING WELL. NO SOB NOTED. NOT IN DISTRESS. WITH NO COMPLAINTS OF PAIN OR DISCOMFORT AT THIS TIME. WITH NO IV ACCESS. ON CLINICAL TRIAL STATUS. DUE MEDS GIVEN. SAFETY MEASURES IN PLACED. CALL LIGHT WITHIN REACH. BED ON LOWEST LOCKED POSITION, SIDE RAILS UP X2. WILL ENDORSE TO NEXT SHIFT FOR RANI.
--- NOTE | 2022-05-11 19:00 | NUR ---
MS RN OPENING NOTES PATIENT IS SLEEPING IN BED; EASILY BEING AROUSED. SHE IS ALERT AND ORIENTED, AO X 4. SHE IS ON RA, TOLERATED WELL. NO S/S OF SOB OR DISTRESS. PATIENT DENIES OF HAVING PAIN AT THIS MOMENT. ACCORDING TO CHANGE SHIFT REPORT, PATIENT'S AMOXICILLIN IS DISCONTINUED TODAY. SAFETY PRECAUTIONS ARE IN PLACED: BED IS IN LOWEST AND LOCKED POSITION; SIDE RAILS UP X 2; CALL LIGHT AND TABLE ARE WITHIN REACH. INSTRUCTED THE PATIENT TO CALL FOR HELP IF SHE NEEDS ANYTHING; PATIENT VERBALIZED UNDERSTANDING. WILL CONTINUE MONITOR THE PATIENT AND PROVIDE THE CARE PATIENT NEEDS.
[2022-05-11 20:00] VITALS: BP 110/64
--- NOTE | 2022-05-12 06:45 | NUR ---
MS RN CLOSING NOTES PATIENT IS AWAKE AND STAYING IN BED. SHE IS ALERT AND ORIENTED, AO X 4. SHE IS ON RA, TOLERATED WELL. NO S/S OF SOB OR DISTRESS. PATIENT DENIES OF HAVING PAIN AT THIS MOMENT. DURING THE SHIFT, PATIENT DID NOT HAVE ANY BEHAVIORAL CHANGES. SAFETY PRECAUTIONS ARE IN PLACED: BED IS IN LOWEST AND LOCKED POSITION; SIDE RAILS UP X 2; CALL LIGHT AND TABLE ARE WITHIN REACH. WILL ENDORSE NEXT SHIFT NURSE FOR CONTINUING PT CARE.
--- NOTE | 2022-05-12 07:50 | NUR ---
RN OPENING NOTE PATIENT AWAKE IN BED RESTING, A/O X4. NO S/S OF PAIN NOTED AT THIS TIME. ON ROOM AIR, BREATHING EVEN UNLABORED, NO DISTRESS OR SHORTNESS OF BREATH NOTED AT THIS TIME. NO IV ACCESS, CLINICAL TRIAL PATIENT. FALL AND SAFETY MEASURES IN PLACE, BED IN LOW AND LOCK POSITION, CALL LIGHT AND TABLE WITHIN EASY REACH, SIDE RAILS UP X2. WILL CONTINUE TO MONITOR.
[2022-05-12 08:00] VITALS: BP 129/64
[2022-05-12] MEDS: INVEST MED CVL-231-2002 PO SCH (10:01)
[2022-05-12 16:00] VITALS: BP 128/71
--- NOTE | 2022-05-12 18:37 | NUR ---
RN CLOSING NOTE PATIENT AWAKE IN BED RESTING, A/O X4. NO S/S OF PAIN NOTED AT THIS TIME. ON ROOM AIR, BREATHING EVEN UNLABORED, NO DISTRESS OR SHORTNESS OF BREATH NOTED AT THIS TIME. NO IV ACCESS, CLINICAL TRIAL PATIENT. FALL AND SAFETY MEASURES IN PLACE, BED IN LOW AND LOCK POSITION, CALL LIGHT AND TABLE WITHIN EASY REACH, SIDE RAILS UP X2. ALL NEEDS ATTENDED AND ANTICIPATED, WILL ENDORSE TO PEDIATRIC CARDIOLOGIST.
--- NOTE | 2022-05-12 19:30 | NUR ---
MS RN OPENING NOTE RECEIVED PATIENT ON BED, ASLEEP BUT EASY TO AROUSE AND RESPONSIVE. AFEBRILE AND NOT IN ANY FORM OF ACUTE DISTRESS. BREATHING EVEN AND NON LABORED. LUNG SOUNDS CLEAR ON AUSCULTATION. NO C/O PAIN OR DISCOMFORT AT THIS TIME. ON CLINICAL TRIAL, MONITORED FOR ANY BEHAVIORAL ISSUE. SAFETY MEASURES IN PLACE. KEPT BED IN LOCKED AND IN LOW POSITION. SIDE RAILS UP X 2. ADVISED TO USE THE CALL LIGHT WHEN IN NEED OF ASSISTANCE.
[2022-05-12 20:00] VITALS: BP 107/68
--- NOTE | 2022-05-13 06:25 | NUR ---
MS RN CLOSING NOTE PATIENT ON BED, ASLEEP BUT EASY TO AROUSE AND RESPONSIVE. AFEBRILE AND NOT IN ANY FORM OF ACUTE DISTRESS. BREATHING EVEN AND NON LABORED. LUNG SOUNDS CLEAR ON AUSCULTATION. NO C/O PAIN OR DISCOMFORT THROUGHOUT THE SHIFT. ON CLINICAL TRIAL, MONITORED FOR ANY BEHAVIORAL ISSUE. SAFETY MEASURES IN PLACE. KEPT BED IN LOCKED AND IN LOW POSITION. SIDE RAILS UP X 2. ADVISED TO USE THE CALL LIGHT WHEN IN NEED OF ASSISTANCE. ALL NURSING NEEDS ATTENDED. ENDORSED TO INCOMING SHIFT FOR CONTINUITY OF CARE.
--- NOTE | 2022-05-13 07:45 | NUR ---
MS RN OPENING NOTE RECEIVED PATIENT ON BED, AWAKE A/O X4 . AFEBRILE AND NOT IN ANY FORM OF ACUTE DISTRESS. BREATHING EVEN AND NON LABORED. LUNG SOUNDS CLEAR ON AUSCULTATION. NO C/O PAIN OR DISCOMFORT AT THIS TIME. ON CLINICAL TRIAL, MONITORED FOR ANY BEHAVIORAL ISSUE. SAFETY MEASURES IN PLACE. KEPT BED IN LOCKED AND IN LOW POSITION. SIDE RAILS UP X 2. ADVISED TO USE THE CALL LIGHT WHEN IN NEED OF ASSISTANCE.
[2022-05-13 08:00] VITALS: BP 148/84
[2022-05-13] MEDS: INVEST MED CVL-231-2002 PO SCH (10:05)
[2022-05-13 16:02] VITALS: BP 139/83
--- NOTE | 2022-05-13 19:15 | NUR ---
MS RN OPENING NOTES PATIENT IS SLEEPING IN BED; EASILY BEING AROUSED. SHE IS ALERT AND ORIENTED, AO X 4. SHE IS ON RA, TOLERATED WELL. NO S/S OF SOB OR DISTRESS. PATIENT DENIES OF HAVING PAIN AT THIS MOMENT. LORAZEPAM AND AMBIEN WILL BE HELD @[address] HARRIS'S ORDER. SAFETY PRECAUTIONS ARE IN PLACED: BED IS IN LOWEST AND LOCKED POSITION; SIDE RAILS UP X 2; CALL LIGHT AND TABLE ARE WITHIN REACH. INSTRUCTED THE PATIENT TO CALL FOR HELP IF SHE NEEDS ANYTHING; PATIENT VERBALIZED UNDERSTANDING. WILL CONTINUE MONITOR THE PATIENT AND PROVIDE THE CARE PATIENT NEEDS.
--- NOTE | 2022-05-13 19:44 | NUR ---
MS RN OPENING NOTE PATIENT ON BED, AWAKE A/O X4 . AFEBRILE AND NOT IN ANY FORM OF ACUTE DISTRESS. BREATHING EVEN AND NON LABORED. LUNG SOUNDS CLEAR ON AUSCULTATION. NO C/O PAIN OR DISCOMFORT AT THIS TIME. ON CLINICAL TRIAL, MONITORED FOR ANY BEHAVIORAL ISSUE. SAFETY MEASURES IN PLACE.ALL DUE MEDS GIVEN ORDERED , KEPT BED IN LOCKED AND IN LOW POSITION. SIDE RAILS UP X 2. ENDORSED TO NEXT SHIFT .
[2022-05-13 20:00] VITALS: BP 107/70
--- NOTE | 2022-05-14 07:30 | NUR ---
MS RN OPENING NOTES PATIENT AWAKE IN BED;AO X 4. SHE IS ON RA, TOLERATING WELL. NO S/S OF SOB OR DISTRESS, VERY PLEASANT AND COOPERATIVE. PATIENT DENIES OF HAVING PAIN AT THIS MOMENT. SAFETY PRECAUTIONS ARE IN PLACED: BED IS IN LOWEST AND LOCKED POSITION; SIDE RAILS UP X 2; CALL LIGHT AND TABLE ARE WITHIN REACH. INSTRUCTED THE PATIENT TO CALL FOR HELP IF SHE NEEDS ANYTHING; PATIENT VERBALIZED UNDERSTANDING. WILL CONTINUE TO MONITOR.
--- NOTE | 2022-05-14 08:04 | NUR ---
MS RN CLOSING NOTES PATIENT IS SLEEPING IN BED; EASILY BEING AROUSED. SHE IS ALERT AND ORIENTED, AO X 4. SHE IS ON RA, TOLERATED WELL. NO S/S OF SOB OR DISTRESS. PATIENT DENIES OF HAVING PAIN AT THIS MOMENT. LORAZEPAM AND AMBIEN HAS BEEN HELD @2100 ON 05/13/[address] HARRIS'S ORDER. SAFETY PRECAUTIONS ARE IN PLACED: BED IS IN LOWEST AND LOCKED POSITION; SIDE RAILS UP X 2; CALL LIGHT AND TABLE ARE WITHIN REACH. INSTRUCTED THE PATIENT TO CALL FOR HELP IF SHE NEEDS ANYTHING; PATIENT VERBALIZED UNDERSTANDING. ENDORSED NEXT SHIFT NURSE FOR CONTINUING PATIENT CARE.
[2022-05-14 08:27] VITALS: BP 130/75
[2022-05-14] MEDS: INVEST MED CVL-231-2002 PO SCH (10:09)
[2022-05-14] MEDS ORDERED: ZOLPIDEM TARTRATE 10 MG TABLET PO PRN (13:00)
[2022-05-14] MEDS ORDERED: LORAZEPAM 1 MG TABLET FOR AGITATION PO PRN (13:00)
[2022-05-14 15:56] VITALS: BP 128/88
--- NOTE | 2022-05-14 18:52 | NUR ---
MS RN CLOSING NOTES PATIENT SLEEPING IN BED, EASILY AWAKEN BY VERBAL AND TACTILE STIMULI . NO S/S OF SOB OR DISTRESS. PATIENT DENIES OF HAVING PAIN AT THIS MOMENT. NO BEHAVIORAL ISSUES NOTED. PATIENT STATED SHE HAD AN APPOINTMENT WITH DR. HARRIS TODAY. SAFETY PRECAUTIONS ARE IN PLACED: BED IS IN LOWEST AND LOCKED POSITION; SIDE RAILS UP X 2; CALL LIGHT AND TABLE ARE WITHIN REACH. INSTRUCTED THE PATIENT TO CALL FOR HELP IF SHE NEEDS ANYTHING; PATIENT VERBALIZED UNDERSTANDING. ENDORSED NEXT SHIFT NURSE FOR CONTINUING PATIENT CARE
--- NOTE | 2022-05-14 19:30 | NUR ---
MS RN OPENING NOTE PATIENT IN BED, ASLEEP, ALERT AND ORIENTED X 4, ABLE TO MAKE NEEDS KNOWN; ON ROOM AIR BREATHING EVENLY, TOLERATING WELL AND NO RESPIRATORY DISTRESS; ENCOURAGED VERBALIZATION OF NEEDS; WILL CONTINUE TO MONITOR THROUGHOUT SHIFT
[2022-05-14 20:00] VITALS: BP 100/61
--- NOTE | 2022-05-15 07:02 | NUR ---
MS RN CLOSING NOTE PATIENT IN BED, AWAKE, ALERT AND ORIENTED X 4, ABLE TO MAKE NEEDS KNOWN; ON ROOM AIR BREATHING EVENLY, TOLERATING WELL AND NO RESPIRATORY DISTRESS; PATIENT'S NEEDS ATTENDED; NO BEHAVIORAL CHANGES NOTED; SAFETY PRECAUTIONS IMPLEMENTED, BED IN LOW POSITION, LOCKED, SIDE RAILS UP X 2, CALL LIGHT WITHIN REACH; WILL ENDORSE TO AM NURSE FOR RANI.
[2022-05-15 08:19] VITALS: BP 129/82
[2022-05-15] MEDS: INVEST MED CVL-231-2002 PO SCH (10:01)
--- NOTE | 2022-05-15 12:00 | NUR ---
CONFERENCE AND EVENT ORGANISER NOTES PATIENT WAS ORDERED BY DR. HARRIS FOR DISCHARGE TO HOME. DISCHARGE INSTRUCTIONS PROVIDED. BELONGINGS LIST FORM ACCOUNTED FOR. REMOVED NAME WRIST BAND. ACCOMPANIED TO THE [facility] AND LEFT IN STABLE CONDITION. MD AND CHARGE NURSE ARE AWARE OF THE DISCHARGE.
[2022-05-21] MEDS ORDERED: ZOLPIDEM TARTRATE 10 MG TABLET PO PRN (13:00)
[2022-05-21] MEDS ORDERED: LORAZEPAM 1 MG TABLET FOR AGITATION PO PRN (13:00)
[2022-05-29] MEDS ORDERED: LORAZEPAM 1 MG TABLET FOR AGITATION PO PRN (13:00)
[2022-05-29] MEDS ORDERED: ZOLPIDEM TARTRATE 10 MG TABLET PO PRN (13:00)
[2022-06-05] MEDS ORDERED: LORAZEPAM 1 MG TABLET FOR AGITATION PO PRN (13:00)
[2022-06-05] MEDS ORDERED: ZOLPIDEM TARTRATE 10 MG TABLET PO PRN (13:00)
[2022-06-12] MEDS ORDERED: LORAZEPAM 1 MG TABLET FOR AGITATION PO PRN (13:00)
[2022-06-12] MEDS ORDERED: ZOLPIDEM TARTRATE 10 MG TABLET PO PRN (13:00)
[2022-06-19] MEDS ORDERED: ZOLPIDEM TARTRATE 10 MG TABLET PO PRN (13:00)
[2022-06-19] MEDS ORDERED: LORAZEPAM 1 MG TABLET FOR AGITATION PO PRN (13:00)
== END 2022-05-15 12:29 | disposition home or self-care (01) | DRG 951 ==
LOC: MED 14:57
PROVIDERS: ADMIT Psychiatry & Neurology Psychiatry; ATTEND Psychiatry & Neurology Psychiatry
DX: Z00.6 Encounter for examination for normal comparison and control in clinical research program (principal); F20.0 Paranoid schizophrenia
CPT/HCPCS: 87081-TC; G0378

== ENCOUNTER 2022-05-28 16:07 | Emergency (ER) | payer MEDICARE, OTHER ==
[~2022-05-28] VITALS: Ht 157.5 cm; Wt 81.6 kg
[2022-05-28 16:43] VITALS: BP 133/98
[2022-05-28] MEDS ORDERED: RISP0.5T65 PO (16:49)
--- NOTE | 2022-05-28 16:52 | NUR ---
Patient discharged to home in stable condition. Written and verbal after care instructions given. Patient verbalizes understanding of instruction.
== END 2022-05-28 16:54 | disposition home or self-care (01) ==
LOC: ER 16:17
DX: F20.9 Schizophrenia, unspecified (principal); F17.200 Nicotine dependence, unspecified, uncomplicated; Z79.899 Other long term (current) drug therapy

== ENCOUNTER 2023-02-08 13:52 | Inpatient (IN) | payer OTHER ==
[~2023-02-08] VITALS: Ht 157.5 cm; Wt 84.6 kg
[2023-02-08] MEDS ORDERED: MAG HYDROX/AL HYDROX/SIMETH 30 ML UDC PO PRN (16:00)
[2023-02-08] MEDS ORDERED: MAGNESIUM HYDROXIDE 30 ML UDC PO PRN (16:00)
[2023-02-08] MEDS ORDERED: IBUPROFEN 200 MG TABLET PO PRN (16:00)
[2023-02-08] MEDS ORDERED: ACETAMINOPHEN ES 500 MG TABLET PO PRN (16:00)
[2023-02-08] MEDS ORDERED: ZOLPIDEM TARTRATE 10 MG TABLET PO PRN (16:00)
[2023-02-08] MEDS ORDERED: LORAZEPAM 1 MG TABLET FOR AGITATION PO PRN (16:00)
[2023-02-08 20:00] VITALS: BP 123/72; TEMP 97.3; O2SAT 100
[2023-02-09 07:00] VITALS: BP 104/67; TEMP 97.7; O2SAT 96
[2023-02-09 20:00] VITALS: BP 118/77; TEMP 97.5; O2SAT 99
[2023-02-10 08:00] VITALS: BP 118/73; TEMP 98.1; O2SAT 99
[2023-02-10] MEDS ORDERED: LORAZEPAM 1 MG TABLET FOR AGITATION PO PRN (13:00)
[2023-02-10 16:00] VITALS: BP 115/88; TEMP 98.1; O2SAT 99
[2023-02-10 20:00] VITALS: BP 120/78; TEMP 98.4; O2SAT 100
[2023-02-11 20:00] VITALS: BP 116/72; TEMP 97.9; O2SAT 100
[2023-02-11 22:18] VITALS: BP 116/72; TEMP 97.9; O2SAT 100
[2023-02-12 19:30] VITALS: BP 105/84; TEMP 98; O2SAT 98
[2023-02-13 07:30] VITALS: BP 115/80; TEMP 97.3; O2SAT 100
[2023-02-13 16:00] VITALS: BP 118/79; TEMP 97.7; O2SAT 100
[2023-02-13 20:00] VITALS: BP 119/70; TEMP 97.8; O2SAT 98
[2023-02-14 07:00] VITALS: BP 121/79; TEMP 97.3; O2SAT 97
[2023-02-14 16:00] VITALS: BP 120/81; TEMP 97.9; O2SAT 99
[2023-02-14 20:00] VITALS: BP 128/98; TEMP 98.2; O2SAT 97
[2023-02-15 07:00] VITALS: BP 100/71; TEMP 97.7; O2SAT 100
[2023-02-15] MEDS ORDERED: ZOLPIDEM TARTRATE 10 MG TABLET PO PRN (13:00)
[2023-02-15] MEDS ORDERED: LORAZEPAM 1 MG TABLET FOR AGITATION PO PRN (13:00)
[2023-02-16 16:00] VITALS: BP 116/62; TEMP 97.6; O2SAT 99
[2023-02-16 20:00] VITALS: BP 102/58; TEMP 98.1; O2SAT 93
[2023-02-17 08:00] VITALS: BP 106/60; TEMP 98.2; O2SAT 94
[2023-02-17 16:32] VITALS: BP 118/98; TEMP 98.2; O2SAT 100
[2023-02-17 20:00] VITALS: BP 114/60; TEMP 99; O2SAT 97
[2023-02-18 07:30] VITALS: BP 118/72; TEMP 97.7; O2SAT 97
[2023-02-18 16:00] VITALS: BP 110/72; TEMP 98.1; O2SAT 94
[2023-02-18 20:00] VITALS: BP 104/51; TEMP 98.8; O2SAT 98
[2023-02-19 07:30] VITALS: BP 116/80; TEMP 97.5; O2SAT 100
[2023-02-19 20:00] VITALS: BP 109/68; TEMP 97.9; O2SAT 95
[2023-02-20 08:00] VITALS: BP 114/63; TEMP 98.2; O2SAT 95
[2023-02-20 16:00] VITALS: BP 114/72; TEMP 98.2; O2SAT 94
[2023-02-20 20:00] VITALS: BP 170/70; TEMP 98; O2SAT 98
[2023-02-21 07:30] VITALS: BP 140/129; TEMP 98.1; O2SAT 94
[2023-02-21 16:00] VITALS: BP 140/80; TEMP 97.6; O2SAT 97
[2023-02-21 20:00] VITALS: BP 119/63; TEMP 98.1; O2SAT 98
[2023-02-22 07:00] VITALS: BP 119/73; TEMP 98.4; O2SAT 94
[2023-02-22] MEDS ORDERED: ZOLPIDEM TARTRATE 10 MG TABLET PO PRN (13:00)
[2023-02-22] MEDS ORDERED: LORAZEPAM 1 MG TABLET FOR AGITATION PO PRN (13:00)
[2023-02-22 16:00] VITALS: BP 129/76; TEMP 97.7; O2SAT 100
[2023-02-22 20:00] VITALS: BP 122/73; TEMP 97.8; O2SAT 98
[2023-02-23 07:00] VITALS: BP 114/96; TEMP 97.3; O2SAT 92
[2023-02-23 19:43] VITALS: BP 137/75; TEMP 97.4; O2SAT 94
[2023-02-24 07:00] VITALS: BP 110/73; TEMP 97.7; O2SAT 95
[2023-02-24 16:00] VITALS: BP 123/78; TEMP 98.1; O2SAT 96
[2023-02-24 20:00] VITALS: BP 100/60; TEMP 97.8; O2SAT 98
[2023-02-25 20:00] VITALS: BP 107/71; TEMP 98.8; O2SAT 99
[2023-02-26 08:00] VITALS: BP 111/70; TEMP 97.7; O2SAT 98
[2023-02-26 16:00] VITALS: BP 109/75; TEMP 98.4; O2SAT 97
[2023-02-26 20:00] VITALS: BP 102/66; TEMP 97.9; O2SAT 97
[2023-02-27 08:00] VITALS: BP 112/81; TEMP 97; O2SAT 96
[2023-02-27 16:00] VITALS: BP 103/77; TEMP 98.4; O2SAT 97
[2023-02-27 20:00] VITALS: BP 104/61; TEMP 97.8; O2SAT 97
[2023-02-27 21:32] VITALS: BP 104/61; TEMP 97.8; O2SAT 97
[2023-02-28 14:41] VITALS: BP 108/69; TEMP 97.6; O2SAT 100
[2023-02-28 16:59] VITALS: BP 118/78; TEMP 98; O2SAT 100
[2023-02-28 20:00] VITALS: BP 106/62; TEMP 98.5; O2SAT 94
[2023-02-28 20:53] VITALS: BP 116/61; TEMP 99.2; O2SAT 94
[2023-03-01] MEDS ORDERED: ZOLPIDEM TARTRATE 10 MG TABLET PO PRN (13:00)
[2023-03-01] MEDS ORDERED: LORAZEPAM 1 MG TABLET FOR AGITATION PO PRN (13:00)
[2023-03-01 16:00] VITALS: BP 126/81; TEMP 98.4; O2SAT 92
[2023-03-01 20:00] VITALS: BP 122/79; TEMP 98; O2SAT 95
[2023-03-02 08:00] VITALS: BP 113/81; TEMP 97.6; O2SAT 96
[2023-03-02 20:33] VITALS: BP 116/78; TEMP 98.1; O2SAT 97
[2023-03-03 07:30] VITALS: BP 113/92; TEMP 97.9; O2SAT 96
[2023-03-03 16:00] VITALS: BP 113/72; TEMP 98.4; O2SAT 96
[2023-03-03 20:00] VITALS: BP 111/75; TEMP 98.2; O2SAT 95
[2023-03-04 08:26] VITALS: BP 116/77; TEMP 98.1; O2SAT 97
[2023-03-04 16:09] VITALS: BP 120/83; TEMP 98.3; O2SAT 97
[2023-03-04 20:30] VITALS: BP 94/62; TEMP 98.2; O2SAT 94
[2023-03-05 07:00] VITALS: BP 118/70; TEMP 98.4; O2SAT 99
[2023-03-05 16:00] VITALS: BP 106/73; TEMP 98.2; O2SAT 98
[2023-03-05 20:00] VITALS: BP 105/63; TEMP 98.3; O2SAT 98
[2023-03-06 08:00] VITALS: BP 131/90; TEMP 98.2; O2SAT 96
[2023-03-06 20:00] VITALS: BP 108/62; TEMP 98.2; O2SAT 97
[2023-03-07 07:30] VITALS: BP 112/69; TEMP 97.5; O2SAT 97
[2023-03-07 20:00] VITALS: BP 117/71; TEMP 98.1; O2SAT 97
[2023-03-08] MEDS ORDERED: LORAZEPAM 1 MG TABLET FOR AGITATION PO PRN (13:00)
[2023-03-08] MEDS ORDERED: ZOLPIDEM TARTRATE 10 MG TABLET PO PRN (13:00)
[2023-03-08 16:40] VITALS: BP 133/86; TEMP 98; O2SAT 100
[2023-03-08 20:00] VITALS: BP 104/81; TEMP 98.8; O2SAT 97
[2023-03-09 08:00] VITALS: BP 132/80; TEMP 98.2; O2SAT 97
[2023-03-09 20:06] VITALS: BP 109/56; TEMP 98.1; O2SAT 94
[2023-03-10 07:00] VITALS: BP 109/75; TEMP 97.5; O2SAT 97
[2023-03-10 16:00] VITALS: BP 115/78; TEMP 97.5; O2SAT 95
[2023-03-11 08:42] VITALS: BP 120/69; TEMP 98; O2SAT 100
[2023-03-11 20:00] VITALS: BP 101/60; TEMP 98.2; O2SAT 97
[2023-03-12 07:00] VITALS: BP 119/106; TEMP 97.7; O2SAT 98
[2023-03-12 20:20] VITALS: BP 115/68; TEMP 98.4; O2SAT 100
[2023-03-13 07:00] VITALS: BP 126/88; TEMP 97.3; O2SAT 99
[2023-03-13 16:00] VITALS: BP 131/106; TEMP 98; O2SAT 95
[2023-03-14 07:00] VITALS: BP 127/89; TEMP 97.7; O2SAT 92
[2023-03-15 08:00] VITALS: BP 100/65; TEMP 97.5; O2SAT 96
[2023-03-15] MEDS ORDERED: ZOLPIDEM TARTRATE 10 MG TABLET PO PRN (13:00)
[2023-03-15] MEDS ORDERED: LORAZEPAM 1 MG TABLET FOR AGITATION PO PRN (13:00)
[2023-03-15 16:00] VITALS: BP 129/76; TEMP 98.6; O2SAT 98
[2023-03-16 08:00] VITALS: BP 101/57; TEMP 97.5; O2SAT 100
[2023-03-16 16:00] VITALS: BP 115/74; TEMP 98.6; O2SAT 98
[2023-03-16 20:00] VITALS: BP 126/88; TEMP 98.8; O2SAT 95
[2023-03-17 08:00] VITALS: BP 121/79; TEMP 97.9; O2SAT 95
[2023-03-17 16:34] VITALS: BP 125/76; TEMP 98.8; O2SAT 98
[2023-03-18 07:30] VITALS: BP 128/67; TEMP 98.2; O2SAT 100
[2023-03-18 16:00] VITALS: BP 113/76; TEMP 97.3; O2SAT 97
[2023-03-18 20:00] VITALS: BP 105/68; TEMP 97.8; O2SAT 99
[2023-03-19 07:00] VITALS: BP 121/80; TEMP 97.7; O2SAT 99
[2023-03-19 16:00] VITALS: BP 102/73; TEMP 97.9; O2SAT 98
[2023-03-19 20:00] VITALS: BP 105/57; TEMP 98.6; O2SAT 100
[2023-03-20 08:00] VITALS: BP 100/83; TEMP 98; O2SAT 97
[2023-03-20 20:00] VITALS: BP 95/60; TEMP 98.3; O2SAT 95
[2023-03-21 08:00] VITALS: BP 104/73; TEMP 98.2; O2SAT 99
[2023-03-21 19:05] VITALS: BP 97/50; TEMP 98.3; O2SAT 99
[2023-03-22] MEDS ORDERED: ZOLPIDEM TARTRATE 10 MG TABLET PO PRN (13:00)
[2023-03-22] MEDS ORDERED: LORAZEPAM 1 MG TABLET FOR AGITATION PO PRN (13:00)
[2023-03-22 16:00] VITALS: BP 115/61; TEMP 98.4; O2SAT 97
[2023-03-22 20:00] VITALS: BP 100/95; TEMP 98; O2SAT 95
[2023-03-23 07:30] VITALS: BP 107/61; TEMP 97.5; O2SAT 95
[2023-03-23 16:00] VITALS: BP 121/89; TEMP 98.4; O2SAT 98
[2023-03-23 20:00] VITALS: BP 100/52; TEMP 97.3; O2SAT 98
[2023-03-24 08:00] VITALS: BP 116/90; TEMP 98.6; O2SAT 99
[2023-03-24 16:04] VITALS: BP 117/98; TEMP 98.2; O2SAT 94
[2023-03-24 20:00] VITALS: BP 90/50; TEMP 98.8; O2SAT 98
[2023-03-25 07:00] VITALS: BP 112/68; TEMP 97; O2SAT 99
[2023-03-25 16:00] VITALS: BP 127/86; TEMP 97.8; O2SAT 99
[2023-03-26] VITALS: BP 107/15; TEMP 98; O2SAT 94
[2023-03-27 07:30] VITALS: BP 113/48; TEMP 98.2; O2SAT 94
[2023-03-27 16:00] VITALS: BP 113/45; TEMP 98.1; O2SAT 99
[2023-03-27 20:00] VITALS: BP 95/60; TEMP 98.4; O2SAT 97
[2023-03-28 08:00] VITALS: BP 84/68; TEMP 97.9; O2SAT 99
[2023-03-28 16:00] VITALS: BP 117/76; TEMP 98.2; O2SAT 96
[2023-03-28 20:00] VITALS: BP 83/73; TEMP 98.5; O2SAT 100
[2023-03-29 07:30] VITALS: BP 122/78; TEMP 98.6; O2SAT 97
[2023-03-30 07:30] VITALS: BP 105/69; TEMP 98.6; O2SAT 96
[2023-03-30] MEDS ORDERED: ZOLPIDEM TARTRATE 10 MG TABLET PO PRN (13:00)
[2023-03-30] MEDS ORDERED: LORAZEPAM 1 MG TABLET FOR AGITATION PO PRN (13:00)
[2023-03-30 20:00] VITALS: BP 116/72; TEMP 98.2; O2SAT 98
[2023-03-31 07:30] VITALS: BP 126/77; TEMP 99.1; O2SAT 97
[2023-03-31 16:00] VITALS: BP 114/82; TEMP 98.1; O2SAT 96
[2023-03-31 20:00] VITALS: BP 104/70; TEMP 97.8; O2SAT 96
[2023-04-01 08:00] VITALS: BP 108/60; TEMP 97.6; O2SAT 97
[2023-04-01 16:00] VITALS: BP 111/78; TEMP 97.6; O2SAT 98
[2023-04-02 09:12] VITALS: BP 141/97; TEMP 98; O2SAT 98
[2023-04-03 16:00] VITALS: BP 107/85; TEMP 97.7; O2SAT 98
[2023-04-03 20:00] VITALS: BP 102/62; TEMP 97.8; O2SAT 98
[2023-04-04 07:00] VITALS: BP 102/72; TEMP 97.9; O2SAT 98
[2023-04-04 16:00] VITALS: BP 117/80; TEMP 98.4; O2SAT 97
[2023-04-04 20:00] VITALS: BP 119/80; TEMP 98.4; O2SAT 98
[2023-04-05 07:00] VITALS: BP 128/71; TEMP 98.4; O2SAT 99
[2023-04-05 16:00] VITALS: BP 119/89; TEMP 98.2; O2SAT 99
[2023-04-06 08:00] VITALS: BP 119/68; TEMP 98.1; O2SAT 99
[2023-04-06] MEDS ORDERED: ZOLPIDEM TARTRATE 10 MG TABLET PO PRN (13:00)
[2023-04-06] MEDS ORDERED: LORAZEPAM 1 MG TABLET FOR AGITATION PO PRN (13:00)
[2023-04-06 16:45] VITALS: BP 120/83; TEMP 98.2; O2SAT 95
[2023-04-08 05:00] VITALS: BP 122/80; TEMP 97.8; O2SAT 98
[2023-04-08 08:41] VITALS: BP 118/85; TEMP 97.7; O2SAT 99
[2023-04-08 16:28] VITALS: BP 124/79; TEMP 98.2; O2SAT 97
[2023-04-08 20:00] VITALS: BP 109/73; TEMP 97.8; O2SAT 97
[2023-04-09 08:30] VITALS: BP 118/64; TEMP 98; O2SAT 99
[2023-04-09 20:00] VITALS: BP 131/92; TEMP 97.7; O2SAT 96
[2023-04-10 07:30] VITALS: BP 123/82; TEMP 98.1; O2SAT 97
[2023-04-10 16:00] VITALS: BP 121/77; TEMP 97.5; O2SAT 98
[2023-04-12 07:30] VITALS: BP 116/76; TEMP 97.5; O2SAT 95
[2023-04-12] MEDS ORDERED: ZOLPIDEM TARTRATE 10 MG TABLET PO PRN (13:00)
[2023-04-12 16:00] VITALS: BP 118/86; TEMP 98.4; O2SAT 97
[2023-04-12 20:00] VITALS: BP 123/86; TEMP 98.2; O2SAT 97
[2023-04-13 08:00] VITALS: BP 126/76; TEMP 97.7; O2SAT 97
== END 2023-04-13 12:00 | disposition home or self-care (01) | DRG 951 ==
LOC: MED 15:48
PROVIDERS: ADMIT Psychiatry & Neurology Psychiatry; ATTEND Psychiatry & Neurology Psychiatry
DX: Z00.6 Encounter for examination for normal comparison and control in clinical research program (principal); F20.0 Paranoid schizophrenia
CPT/HCPCS: G0378

== ENCOUNTER 2023-06-24 15:19 | Emergency (ER) | payer MEDICARE, MEDICAID ==
[~2023-06-24] VITALS: Ht 160 cm; Wt 87.1 kg
[2023-06-24 15:55] VITALS: BP 132/57; TEMP 98; O2SAT 98
[2023-06-24] MEDS ORDERED: RISP0.5T65 PO (16:17)
== END 2023-06-24 16:28 | disposition home or self-care (01) ==
LOC: ER 15:38
DX: F20.9 Schizophrenia, unspecified (principal); Z76.0 Encounter for issue of repeat prescription; Z91.011 Allergy to milk products; Z91.012 Allergy to eggs

== ENCOUNTER 2023-07-06 15:38 | Emergency (ER) | payer OTHER ==
[~2023-07-06] VITALS: Ht 157.5 cm; Wt 86.2 kg
[2023-07-06 16:24] VITALS: BP 169/78; TEMP 98.5; O2SAT 100
== END 2023-07-06 16:45 | disposition home or self-care (01) ==
LOC: ER 15:42
DX: Z76.0 Encounter for issue of repeat prescription (principal); F20.9 Schizophrenia, unspecified; Z91.018 Allergy to other foods

== ENCOUNTER 2024-05-25 19:28 | Emergency (ER) | payer OTHER ==
[~2024-05-25] VITALS: Ht 139.7 cm; Wt 57.2 kg
[2024-05-25 20:34] LABS: BASOPHILS # (AUTO) 0.1 K/uL (0.0-0.2); BASOPHILS % (AUTO) 1.2 % (0.0-2.0); EOSINOPHILS # (AUTO) 0.1 K/uL (0.0-0.7); EOSINOPHILS % (AUTO) 0.8 % (0.0-6.0); HEMATOCRIT 38 % (33-45); LYMPHOCYTES % (AUTO) 24.8 % (20.0-44.0); MEAN CORPUSCULAR HEMOGLOBIN 30 PG (26.0-33.0); MEAN CORPUSCULAR HGB CONC 34 g/dl (31.0-36.0); MEAN CORPUSCULAR VOLUME 89 fL (82-100); MONOCYTES # (AUTO) 0.9 K/uL (0.1-1.30); MONOCYTES % (AUTO) 7.1 % (2.0-12.0); NEUTROPHILS % (AUTO) 66.1 % (43.0-81.0); PLATELET COUNT (AUTO) 333 K/uL (150-450); RED BLOOD CELL COUNT(AUTO) 4.31 MIL/uL (4.0-5.2); RED CELL DISTRIBUTION WIDTH 13.8 % (11.5-15.0); WHITE BLOOD COUNT (AUTO) 12.1 K/uL (4.3-11.0)
[2024-05-25 20:37] LABS: APPEARANCE,URINE CLEAR (CLEAR); BILIRUBIN,URINE NEGATIVE (NEGATIVE); BLOOD, URINE 2+ Ery/uL (NEGATIVE); COLOR,URINE YELLOW (YELLOW); KETONES,URINE NEGATIVE (NEGATIVE); LEUKOCYTE ESTERASE ,URINE NEGATIVE (NEGATIVE); NITRITE, URINE NEGATIVE (NEGATIVE); PROTEIN,URINE NEGATIVE (NEGATIVE); UGLUCOSE NEGATIVE (NEGATIVE); UROBILINOGEN,URINE 0.2 EU/dL (0.2)
[2024-05-25 20:46] LABS: ALANINE AMINOTRANSFERASE 30 U/L (12-78); ALBUMIN 3.9 g/dL (3.4-5.0); ALCOHOL, BLOOD < 3 mg/dL (0-10); ALKALINE PHOSPHATASE 89 U/L (46-116); ASPARTATE AMINOTRANSFERASE 18 U/L (15-37); BILIRUBIN,DIRECT 0.1 mg/dL (0.0-0.2); BILIRUBIN,TOTAL 0.4 mg/dL (0.2-1.0); CALCIUM, SERUM 8.6 mg/dL (8.5-10.1); CARBON DIOXIDE 28 mmol/L (21-32); CHLORIDE 103 mmol/L (98-107); CREATININE 0.7 mg/dL (0.6-1.3); GLUCOSE 100 mg/dL (74-106); POTASSIUM 3.4 mmol/L (3.5-5.1); SODIUM SERUM 138 mmol/L (136-145); TOTAL PROTEIN, SERUM 8.2 g/dL (6.4-8.2); UREA NITROGEN, BLOOD 16 mg/dL (7-18)
[2024-05-25 20:50] LABS: AMPHETAMINE, URINE NEGATIVE (NEGATIVE); BARBITURATE, URINE NEGATIVE (NEGATIVE); BENZODIAZEPINE, URINE NEGATIVE (NEGATIVE); CANNABINOID, URINE NEGATIVE (NEGATIVE); COCCAINE, URINE NEGATIVE (NEGATIVE); OPIATE, URINE NEGATIVE (NEGATIVE); PHENCYCLIDINE SCREEN,URINE NEGATIVE (NEGATIVE)
[2024-05-25 20:58] LABS: SALICYLATE 1.4 mg/dL (2.8-20.0)
[2024-05-25 20:59] LABS: ACETAMINOPHEN <10 ug/ml (10-30)
[2024-05-25 21:06] LABS: WBC,URINE 0-2 /HPF (0-3)
[2024-05-25 21:07] LABS: ADD URINE CULTURE NO; BACTERIA,URINE Rare /HPF (None Seen); SQUAMOUS EPITHELIAL CELL,UR Few /HPF (None Seen)
[2024-05-25] MEDS: POTASSIUM CHLORIDE 20 MEQ TAB.PRT.SR PO ONE (23:00)
[2024-05-26 09:51] VITALS: BP 138/94; TEMP 98; O2SAT 96
== END 2024-05-26 09:53 ==
LOC: ER 19:51
DX: R45.851 Suicidal ideations (principal); F22 Delusional disorders; R10.2 Pelvic and perineal pain; F20.9 Schizophrenia, unspecified; Z20.822 Contact with and (suspected) exposure to COVID-19; F17.200 Nicotine dependence, unspecified, uncomplicated; Z79.899 Other long term (current) drug therapy; Z59.00 Homelessness unspecified
CPT/HCPCS: 36415; 80048-TC; 80076-TC; 81001; 84702-TC; 85025-TC; G0480; J7040

== ENCOUNTER 2024-07-18 09:36 | Inpatient (IN) | payer OTHER ==
[~2024-07-18] VITALS: Ht 152.4 cm; Wt 93.0 kg
[2024-07-18] MEDS ORDERED: LORAZEPAM 1 MG TABLET FOR AGITATION PO PRN ×2 (13:00→16:00)
[2024-07-18] MEDS ORDERED: MAG HYDROX/AL HYDROX/SIMETH 30 ML UDC PO PRN (16:00)
[2024-07-18] MEDS ORDERED: MAGNESIUM HYDROXIDE 30 ML UDC PO PRN (16:00)
[2024-07-18] MEDS ORDERED: ZOLPIDEM TARTRATE 10 MG TABLET PO PRN (16:00)
[2024-07-18] MEDS ORDERED: OLAN10TA3 PO (16:52)
[2024-07-18 20:00] VITALS: BP 136/88; TEMP 97.5; O2SAT 99
[2024-07-18] MEDS: ACETAMINOPHEN ES 500 MG TABLET PO PRN (20:43)
[2024-07-18] MEDS: OLANZAPINE 5 MG PO SCH (20:56)
[2024-07-18 23:03] VITALS: BP 136/88; TEMP 97.5; O2SAT 99
[2024-07-19 16:00] VITALS: BP 128/79; TEMP 97.7; O2SAT 96
[2024-07-19 20:16] VITALS: BP 131/60; TEMP 97.3; O2SAT 96
[2024-07-20 08:00] VITALS: BP 116/74; TEMP 98; O2SAT 98
[2024-07-20 16:00] VITALS: BP 100/82; TEMP 97.6; O2SAT 98
[2024-07-20 20:00] VITALS: BP 113/71; O2SAT 97
[2024-07-21 08:00] VITALS: BP 113/72; TEMP 97.5; O2SAT 97
[2024-07-21 16:00] VITALS: BP 137/87; TEMP 98.1; O2SAT 100
[2024-07-21 20:00] VITALS: BP 124/75; TEMP 98.4; O2SAT 96
[2024-07-22 08:00] VITALS: BP 109/65; TEMP 98.1; O2SAT 100
[2024-07-22 16:00] VITALS: BP 108/62; TEMP 98.4; O2SAT 100
[2024-07-22 20:00] VITALS: BP 112/61; TEMP 98.1; TEMP 98.4; O2SAT 95
[2024-07-23 09:02] VITALS: BP 127/59; TEMP 97.7; O2SAT 98
[2024-07-23 20:00] VITALS: BP_SYST 103; BP_SYST 108; BP_DIAS 58; BP_DIAS 63; TEMP 95; TEMP 98.4; O2SAT 94; O2SAT 95
[2024-07-24 20:00] VITALS: BP 138/88; TEMP 98.1; O2SAT 98
[2024-07-25 08:05] VITALS: BP 111/73; TEMP 97.9; O2SAT 98
[2024-07-25 08:18] VITALS: BP 111/73; TEMP 97.9; O2SAT 98
[2024-07-25 16:04] VITALS: BP 125/79; TEMP 97.2; O2SAT 97
[2024-07-25 16:15] VITALS: BP 125/79; TEMP 97.2; O2SAT 97
[2024-07-25 20:00] VITALS: BP 131/85; TEMP 98.1; O2SAT 97
[2024-07-26 08:00] VITALS: BP 105/81; TEMP 98.1; O2SAT 94
[2024-07-26 16:12] VITALS: BP 128/85; TEMP 98.2; O2SAT 97
[2024-07-26 20:00] VITALS: BP 145/82; TEMP 97.9; O2SAT 96
[2024-07-27 08:00] VITALS: BP 126/71; TEMP 97.6; O2SAT 99
[2024-07-27 20:00] VITALS: BP 111/62; TEMP 97.6; O2SAT 96
[2024-07-27 22:00] VITALS: BP 111/62; TEMP 97.6; O2SAT 96
[2024-07-28 08:43] VITALS: BP 135/91; TEMP 98; O2SAT 97
[2024-07-28 20:00] VITALS: BP 101/79; TEMP 98.6; O2SAT 97
[2024-07-29 16:00] VITALS: BP 120/75; TEMP 98.2; O2SAT 96
[2024-07-29 20:00] VITALS: BP 138/84; TEMP 98.4; O2SAT 97
[2024-07-30 07:00] VITALS: BP 130/82; TEMP 97.3; O2SAT 97
[2024-07-30 16:00] VITALS: BP 131/111; TEMP 97.3; O2SAT 98
[2024-07-31 08:00] VITALS: BP 150/81; TEMP 97.6; O2SAT 98
[2024-07-31 18:00] VITALS: BP 136/86; TEMP 98.1; O2SAT 96
[2024-07-31 20:00] VITALS: BP 147/65; TEMP 97.9; O2SAT 96
[2024-08-01 08:15] VITALS: BP 140/63; TEMP 97.5; O2SAT 97
[2024-08-01] MEDS ORDERED: LORAZEPAM 1 MG TABLET FOR AGITATION PO PRN (13:00)
[2024-08-01] MEDS ORDERED: ZOLPIDEM TARTRATE 10 MG TABLET PO PRN (13:00)
[2024-08-01 17:37] VITALS: BP 136/72; TEMP 98.2; O2SAT 99
[2024-08-01] MEDS: INVEST MED OTSUKA 382-201-00035 PO SCH (20:15)
[2024-08-01 20:18] VITALS: BP 141/74; TEMP 97.9; O2SAT 99
[2024-08-02 08:17] VITALS: BP 138/80; TEMP 97.9; O2SAT 100
[2024-08-02 16:00] VITALS: BP 113/77; TEMP 97.9; O2SAT 93
[2024-08-02 20:00] VITALS: BP 124/78; TEMP 98.1; O2SAT 97
[2024-08-03 09:01] VITALS: BP 129/80; TEMP 97.9; O2SAT 96
[2024-08-03 20:23] VITALS: BP 118/73; TEMP 97.3; O2SAT 98
[2024-08-04 08:00] VITALS: BP 121/77; TEMP 97.4; O2SAT 99
[2024-08-04 16:00] VITALS: BP 115/66; TEMP 97.3; O2SAT 99
[2024-08-04 20:30] VITALS: BP 120/81; TEMP 97.5; O2SAT 99
[2024-08-05 20:30] VITALS: BP 131/67; TEMP 97.9; O2SAT 97
[2024-08-06 08:00] VITALS: BP 136/77; TEMP 98.3; O2SAT 97
[2024-08-06 16:00] VITALS: BP 126/70; TEMP 97.5; O2SAT 97
[2024-08-06 21:24] VITALS: BP 147/85; TEMP 98.2; O2SAT 98
[2024-08-07 08:00] VITALS: BP 114/75; TEMP 97.9; O2SAT 97
[2024-08-07 20:00] VITALS: BP 127/52; TEMP 98; O2SAT 97
[2024-08-08 08:00] VITALS: BP 125/71; TEMP 97.3; O2SAT 99
[2024-08-08] MEDS ORDERED: LORAZEPAM 1 MG TABLET FOR AGITATION PO PRN (13:00)
[2024-08-08] MEDS ORDERED: ZOLPIDEM TARTRATE 10 MG TABLET PO PRN (13:00)
[2024-08-08 16:00] VITALS: BP 120/89; TEMP 97.3; O2SAT 99
[2024-08-08 20:00] VITALS: BP 125/97; TEMP 98.1; O2SAT 97
[2024-08-09 08:00] VITALS: BP 134/78; TEMP 96.8; O2SAT 99
[2024-08-09 20:00] VITALS: BP 137/80; TEMP 98.1; O2SAT 96
[2024-08-10 08:00] VITALS: BP 127/81; TEMP 97.7; O2SAT 99
[2024-08-10 16:00] VITALS: BP 120/78; TEMP 98.1; O2SAT 99
[2024-08-10 20:00] VITALS: BP 133/92; TEMP 98.1; O2SAT 99
[2024-08-11 08:00] VITALS: BP 114/66; TEMP 97.3; O2SAT 98
[2024-08-11] MEDS: IBUPROFEN 200 MG TABLET PO PRN (08:27)
[2024-08-11 16:00] VITALS: BP 134/73; TEMP 97.9; O2SAT 99
[2024-08-11 20:00] VITALS: TEMP 98.7; O2SAT 99
[2024-08-12 08:00] VITALS: BP 107/77; TEMP 97.7; O2SAT 99
[2024-08-12] MEDS: GUAIFENESIN LA 600 MG TABLET.SA PO PRN (09:41)
[2024-08-12 16:00] VITALS: BP 147/82; TEMP 98.9; O2SAT 98
[2024-08-12 20:00] VITALS: BP 136/77; TEMP 98.7; O2SAT 99
[2024-08-13 08:00] VITALS: BP 114/71; TEMP 97.3; O2SAT 97
[2024-08-13 16:00] VITALS: BP 141/60; TEMP 100.6; O2SAT 100
[2024-08-13 20:00] VITALS: BP 136/77; TEMP 98.8; O2SAT 98
[2024-08-14] MEDS ORDERED: IBUPROFEN 600 MG TABLET ONE (01:00)
[2024-08-14 08:00] VITALS: BP 114/71; TEMP 97.3; O2SAT 98
[2024-08-14] MEDS: GUAIFENESIN LA 600 MG TABLET.SA PO ONE (13:52)
[2024-08-14 16:00] VITALS: BP 132/78; TEMP 98.4; O2SAT 95
[2024-08-14 20:00] VITALS: BP 101/47; TEMP 98.6; O2SAT 95
[2024-08-15 08:00] VITALS: BP 114/65; TEMP 98.4; O2SAT 96
[2024-08-15] MEDS ORDERED: LORAZEPAM 1 MG TABLET FOR AGITATION PO PRN (13:00)
[2024-08-15] MEDS ORDERED: ZOLPIDEM TARTRATE 10 MG TABLET PO PRN (13:00)
[2024-08-15 16:00] VITALS: BP 122/70; TEMP 98.2; O2SAT 95
[2024-08-15 20:00] VITALS: BP 117/79; TEMP 98.1; O2SAT 99
[2024-08-16 08:00] VITALS: BP 101/50; TEMP 98.2; O2SAT 99
[2024-08-16 20:44] VITALS: BP 125/71; TEMP 98.4; O2SAT 98
[2024-08-17 08:00] VITALS: BP 121/75; TEMP 97.5; O2SAT 98
[2024-08-17 20:00] VITALS: BP 129/79; TEMP 97.5; O2SAT 97
[2024-08-18 08:00] VITALS: BP 108/96; TEMP 97.3; O2SAT 98
[2024-08-18 16:00] VITALS: BP 144/77; TEMP 97.5; O2SAT 99
[2024-08-18 20:00] VITALS: BP 121/85; TEMP 97.5; O2SAT 99
[2024-08-19 08:00] VITALS: BP 117/77; TEMP 97.5; O2SAT 98
[2024-08-19 20:00] VITALS: BP 126/72; TEMP 97.5; O2SAT 99
[2024-08-20 08:00] VITALS: BP 114/76; TEMP 97.5; O2SAT 99
[2024-08-20 16:00] VITALS: BP 119/67; TEMP 98.1; O2SAT 99
[2024-08-20 20:00] VITALS: BP 118/65; TEMP 97.3; O2SAT 100
[2024-08-21 08:00] VITALS: BP 106/74; TEMP 97.6; O2SAT 98
[2024-08-21 20:00] VITALS: BP 130/89; TEMP 97.5; O2SAT 95
[2024-08-22 08:00] VITALS: BP 112/69; TEMP 97.5; O2SAT 97
[2024-08-22] MEDS ORDERED: ZOLPIDEM TARTRATE 10 MG TABLET PO PRN (13:00)
[2024-08-22] MEDS ORDERED: LORAZEPAM 1 MG TABLET FOR AGITATION PO PRN (13:00)
[2024-08-22 20:00] VITALS: BP 133/65; TEMP 97.3; O2SAT 97
[2024-08-23 08:00] VITALS: BP 100/64; TEMP 97.5; O2SAT 99
[2024-08-23 16:00] VITALS: BP 108/70; TEMP 98.1; O2SAT 99
[2024-08-23 20:00] VITALS: BP 130/73; TEMP 98.2; O2SAT 99
[2024-08-24 08:00] VITALS: BP 118/75; TEMP 97.5; O2SAT 98
[2024-08-24 16:00] VITALS: BP 118/71; TEMP 97.5; O2SAT 99
[2024-08-24 20:00] VITALS: BP 122/62; TEMP 98.1; O2SAT 98
[2024-08-25 08:00] VITALS: BP 95/51; TEMP 98.4; O2SAT 99
[2024-08-25 16:00] VITALS: BP 94/81; TEMP 97.3; O2SAT 99
[2024-08-25 19:54] VITALS: BP 119/67; TEMP 98.1; O2SAT 98
[2024-08-26 08:00] VITALS: BP 117/81; TEMP 97.3; O2SAT 98
[2024-08-26 16:00] VITALS: BP 120/69; TEMP 97.5; O2SAT 97
[2024-08-26 20:00] VITALS: BP 114/72; TEMP 97.7; O2SAT 99
[2024-08-27 08:00] VITALS: BP 111/75; TEMP 97.3; O2SAT 99
[2024-08-27 20:00] VITALS: BP 132/75; TEMP 98.1; O2SAT 96
[2024-08-28 08:00] VITALS: BP 120/83; TEMP 97.5; O2SAT 96
[2024-08-28 16:00] VITALS: BP 134/77; TEMP 97.9; O2SAT 98
[2024-08-28 20:00] VITALS: BP 123/74; TEMP 97.5; O2SAT 97
[2024-08-29 08:00] VITALS: BP 126/79; TEMP 98.2; O2SAT 98
[2024-08-29] MEDS ORDERED: ZOLPIDEM TARTRATE 10 MG TABLET PO PRN (13:00)
[2024-08-29] MEDS ORDERED: LORAZEPAM 1 MG TABLET FOR AGITATION PO PRN (13:00)
[2024-08-29 16:00] VITALS: BP 126/75; TEMP 98.2; O2SAT 97
[2024-08-29 20:25] VITALS: BP 111/73; TEMP 97.5; O2SAT 97
[2024-08-30 08:00] VITALS: BP 109/84; TEMP 97.6; O2SAT 99
[2024-08-30 20:00] VITALS: BP 121/99; TEMP 98.1; O2SAT 98
[2024-08-31 08:31] VITALS: BP 120/66; TEMP 97.8; O2SAT 98
[2024-08-31 20:00] VITALS: BP 136/81; TEMP 98.1; O2SAT 100
[2024-09-01 08:00] VITALS: BP 116/59; TEMP 97.9; O2SAT 98
[2024-09-01 16:00] VITALS: BP 139/83; TEMP 97.7; O2SAT 98
[2024-09-01 20:00] VITALS: BP 126/66; TEMP 98.5; O2SAT 99
[2024-09-02 08:00] VITALS: BP 106/78; TEMP 97.8; O2SAT 99
[2024-09-02 16:00] VITALS: BP 121/76; TEMP 97.9; O2SAT 100
[2024-09-02 20:28] VITALS: BP 117/76; TEMP 98.2; O2SAT 98
[2024-09-03 08:00] VITALS: BP 139/61; TEMP 97.5; O2SAT 100
[2024-09-03 16:00] VITALS: BP 135/70; TEMP 98.1; O2SAT 98
[2024-09-03 20:00] VITALS: BP 124/77; TEMP 97.7; O2SAT 100
[2024-09-04 08:00] VITALS: BP 138/82; TEMP 97.5; O2SAT 99
[2024-09-04 16:00] VITALS: BP 126/66; TEMP 97.7; O2SAT 97
[2024-09-04 20:00] VITALS: BP 133/96; TEMP 97.6; O2SAT 97
[2024-09-05 08:30] VITALS: BP 130/101; TEMP 97.9; O2SAT 100
[2024-09-05] MEDS ORDERED: ZOLPIDEM TARTRATE 10 MG TABLET PO PRN (13:00)
[2024-09-05] MEDS ORDERED: LORAZEPAM 1 MG TABLET FOR AGITATION PO PRN (13:00)
[2024-09-05 20:00] VITALS: BP 122/88; TEMP 97.5; O2SAT 98
[2024-09-06 08:00] VITALS: BP 115/73; TEMP 97.9; O2SAT 99
[2024-09-06 16:00] VITALS: BP 110/87; TEMP 98.2; O2SAT 98
[2024-09-06 20:00] VITALS: BP 141/77; TEMP 98.6; O2SAT 97
[2024-09-07 08:00] VITALS: BP 138/89; TEMP 97.6; O2SAT 97
[2024-09-07 16:00] VITALS: BP 153/89; TEMP 98.4; O2SAT 98
[2024-09-07 20:00] VITALS: BP 131/78; TEMP 98.2; O2SAT 99
[2024-09-08 08:00] VITALS: BP 122/79; TEMP 97.3; O2SAT 99
[2024-09-08 16:00] VITALS: BP 100/64; TEMP 97.5; O2SAT 98
[2024-09-08 20:00] VITALS: BP 114/66; TEMP 97.9; O2SAT 99
[2024-09-09 08:00] VITALS: BP 150/82; TEMP 98; O2SAT 99
[2024-09-09 20:00] VITALS: BP 148/95; TEMP 98.2; O2SAT 99
[2024-09-10 08:00] VITALS: BP 145/84; TEMP 97.8; O2SAT 98
[2024-09-10 16:00] VITALS: BP 129/70; TEMP 97.5; O2SAT 98
[2024-09-10 20:00] VITALS: BP 129/75; TEMP 97.7; O2SAT 100
[2024-09-11 08:00] VITALS: BP 144/79; TEMP 97.5; O2SAT 100
[2024-09-11 16:00] VITALS: BP 123/56; TEMP 97.9; O2SAT 99
[2024-09-11 20:00] VITALS: BP 134/64; TEMP 98.2; O2SAT 100
[2024-09-12 08:00] VITALS: BP 128/86; TEMP 97.5; O2SAT 97
[2024-09-12] MEDS ORDERED: ZOLPIDEM TARTRATE 10 MG TABLET PO PRN ×2 (13:00)
[2024-09-12] MEDS ORDERED: LORAZEPAM 1 MG TABLET FOR AGITATION PO PRN (13:00)
[2024-09-12 20:00] VITALS: BP 124/79; TEMP 97.7; O2SAT 98
[2024-09-13 08:00] VITALS: BP 137/77; TEMP 97.3; O2SAT 97
== END 2024-09-13 11:40 | disposition home or self-care (01) | DRG 951 ==
LOC: ICUOV2 09:36 → UNDOADMIN 09:36 → MED 14:24 → MEDSG2 07-31 10:21
PROVIDERS: ADMIT Psychiatry & Neurology Psychiatry; ATTEND Psychiatry & Neurology Psychiatry
DX: Z00.6 Encounter for examination for normal comparison and control in clinical research program (principal); F20.0 Paranoid schizophrenia
CPT/HCPCS: G0378

== ENCOUNTER 2024-11-13 11:21 | Inpatient (IN) | payer OTHER ==
[~2024-11-13] VITALS: Ht 157.5 cm; Wt 93.4 kg
[~2024-11-13 11:21] MED LIST changes: -ALPR0.5T PO; -FAMO-131 PO; +OLAN10TA3 PO; -RISP0.5T5 PO; -RISP0.5T65 PO
[2024-11-13] MEDS ORDERED: MAG HYDROX/AL HYDROX/SIMETH 30 ML UDC PO PRN (15:00)
[2024-11-13] MEDS ORDERED: MAGNESIUM HYDROXIDE 30 ML UDC PO PRN (15:00)
[2024-11-13] MEDS ORDERED: LORAZEPAM 1 MG TABLET FOR AGITATION PO PRN (15:00)
[2024-11-13] MEDS ORDERED: ACETAMINOPHEN ES 500 MG TABLET PO PRN (15:00)
[2024-11-13] MEDS ORDERED: ZOLPIDEM TARTRATE 10 MG TABLET PO PRN (15:00)
[2024-11-13 15:42] VITALS: BP 134/80; TEMP 97.5; O2SAT 96
[2024-11-13 20:00] VITALS: BP_SYST 114; BP_SYST 144; BP_DIAS 81; TEMP 97.5; O2SAT 98
[2024-11-13] MEDS: OLANZAPINE 10 MG PO SCH (22:04)
[2024-11-14 08:00] VITALS: BP 113/58; TEMP 98.1; O2SAT 99
[2024-11-14 20:00] VITALS: BP 145/73; TEMP 97.7; O2SAT 97
[2024-11-15 16:05] VITALS: BP 134/84; TEMP 97.9; O2SAT 96
[2024-11-15] MEDS ORDERED: CEPHALEXIN MONOHYDRATE 500 MG CAPSULE PO ONE (19:13)
[2024-11-15 20:00] VITALS: BP 117/90; TEMP 98.1; O2SAT 96
[2024-11-15] MEDS: OLANZAPINE 10 MG PO SCH (21:21)
[2024-11-16 08:00] VITALS: BP 117/77; TEMP 97.3; O2SAT 96
[2024-11-16 16:00] VITALS: BP 128/88; TEMP 97.9; O2SAT 97
[2024-11-16 20:00] VITALS: BP 135/72; TEMP 97.5; O2SAT 96
[2024-11-17 08:00] VITALS: BP 100/85; TEMP 98.4; O2SAT 97
[2024-11-17 16:00] VITALS: BP 133/74; TEMP 97.5; O2SAT 97
[2024-11-17 20:00] VITALS: BP 111/75; TEMP 98.4; O2SAT 96
[2024-11-18 16:00] VITALS: BP 124/81; TEMP 97.7; O2SAT 96
[2024-11-18 20:00] VITALS: BP 135/70; TEMP 98.2; O2SAT 97
[2024-11-19 08:00] VITALS: BP 99/62; TEMP 98.4; O2SAT 98
[2024-11-19 16:00] VITALS: BP 141/82; TEMP 98.2; O2SAT 97
[2024-11-19 20:00] VITALS: BP 134/87; TEMP 97.7; O2SAT 95
[2024-11-19 20:38] VITALS: BP 134/87; TEMP 97.7; O2SAT 95
[2024-11-20 08:00] VITALS: BP 129/82; TEMP 98.1; O2SAT 98
[2024-11-20 16:00] VITALS: BP 131/84; TEMP 97.5; O2SAT 99
[2024-11-20 20:00] VITALS: BP 116/83; TEMP 98.2; O2SAT 97
[2024-11-21 08:00] VITALS: BP 122/80; TEMP 97.7; O2SAT 98
[2024-11-21 20:00] VITALS: BP 120/86; TEMP 97.7; O2SAT 97
[2024-11-22 08:00] VITALS: BP 129/80; TEMP 98.4; O2SAT 100
[2024-11-22 16:00] VITALS: BP 123/91; TEMP 98.4; O2SAT 96
[2024-11-22 20:00] VITALS: BP_SYST 115; BP_SYST 128; BP_DIAS 84; BP_DIAS 95; TEMP 97.5; TEMP 98.1; O2SAT 96; O2SAT 99
[2024-11-23 08:00] VITALS: BP 137/84; TEMP 97.3; O2SAT 98
[2024-11-23 16:00] VITALS: BP 137/88; TEMP 97.9; O2SAT 95
[2024-11-23 20:00] VITALS: BP 142/88; TEMP 97.7; O2SAT 97; O2SAT 99
[2024-11-24 08:00] VITALS: BP 119/84; TEMP 97.5; O2SAT 96
[2024-11-24 16:00] VITALS: BP 144/92; TEMP 97.9; O2SAT 100
[2024-11-24 20:00] VITALS: BP 138/74; TEMP 98.1; O2SAT 95
[2024-11-25 08:00] VITALS: BP 122/73; TEMP 98.1; O2SAT 95
[2024-11-25] MEDS ORDERED: LORAZEPAM 1 MG TABLET FOR AGITATION PO PRN (13:00)
[2024-11-25 16:00] VITALS: BP 143/81; TEMP 97.9; O2SAT 94
[2024-11-25 20:00] VITALS: BP 127/74; TEMP 97.9; O2SAT 97
[2024-11-26 07:00] VITALS: BP 147/113; O2SAT 94
[2024-11-26 16:00] VITALS: BP 143/68; TEMP 97.7; O2SAT 96
[2024-11-26 20:00] VITALS: BP 137/95; TEMP 97.5; O2SAT 97
[2024-11-26 21:02] VITALS: BP 116/79; TEMP 97.5; O2SAT 97
[2024-11-27 07:30] VITALS: BP 124/75; TEMP 97.3; O2SAT 96
[2024-11-27 20:00] VITALS: BP 129/85; TEMP 97.7; O2SAT 97
[2024-11-28 08:47] VITALS: BP 122/72; TEMP 98.2; O2SAT 98
[2024-11-28 16:25] VITALS: BP 142/90; TEMP 98; O2SAT 97
[2024-11-28 20:00] VITALS: BP 155/95; TEMP 97.3; O2SAT 96
[2024-11-29 08:08] VITALS: BP 120/60; TEMP 97.7; O2SAT 97
[2024-11-29] MEDS: [UNRECOGNIZED DRUG - OTHER] PO SCH (10:00)
[2024-11-29 16:27] VITALS: BP 133/87; TEMP 98.1; O2SAT 96
[2024-11-29 20:00] VITALS: BP 122/84; TEMP 97.5; O2SAT 97
[2024-11-30 07:30] VITALS: BP_SYST 107; BP_SYST 131; BP_DIAS 69; BP_DIAS 74; TEMP 97.5; TEMP 98.1; O2SAT 95; O2SAT 97
[2024-11-30 16:00] VITALS: BP 130/70; TEMP 97.5; O2SAT 96
[2024-11-30 20:00] VITALS: BP 152/80; TEMP 97.5; O2SAT 97
[2024-12-01 16:00] VITALS: BP 113/73; TEMP 97.5; O2SAT 98
[2024-12-01 20:00] VITALS: BP 133/83; TEMP 97.9; O2SAT 95
[2024-12-02 08:00] VITALS: BP 113/59; TEMP 97.7; O2SAT 94
[2024-12-02 16:00] VITALS: BP 125/85; TEMP 97.5; O2SAT 96
[2024-12-02 20:00] VITALS: BP 119/74; TEMP 97.7; O2SAT 97
[2024-12-03 08:00] VITALS: BP 105/63; TEMP 97.9; O2SAT 96
[2024-12-03 20:00] VITALS: BP 118/70; TEMP 97.7; O2SAT 99
[2024-12-04 07:30] VITALS: BP 122/80; TEMP 97.3; O2SAT 98
[2024-12-04] MEDS ORDERED: ZOLPIDEM TARTRATE 10 MG TABLET PO PRN (13:00)
[2024-12-04] MEDS ORDERED: LORAZEPAM 1 MG TABLET FOR AGITATION PO PRN (13:00)
[2024-12-04 16:00] VITALS: BP 122/80; TEMP 97.3; O2SAT 98
[2024-12-04 20:00] VITALS: BP 109/60; TEMP 98.6; O2SAT 95
[2024-12-05 08:31] VITALS: BP 132/62; TEMP 97.5; O2SAT 97
[2024-12-05] MEDS ORDERED: LORAZEPAM 1 MG TABLET FOR AGITATION PO PRN (13:00)
[2024-12-05] MEDS ORDERED: ZOLPIDEM TARTRATE 10 MG TABLET PO PRN (13:00)
[2024-12-05] MEDS: IBUPROFEN 200 MG TABLET PO PRN (15:12)
[2024-12-05 20:56] VITALS: BP 121/86; TEMP 97.5; O2SAT 98
[2024-12-06 07:30] VITALS: BP 113/69; TEMP 97.2; O2SAT 97
[2024-12-06 20:00] VITALS: BP 142/91; TEMP 98.2; O2SAT 98
[2024-12-07 07:30] VITALS: BP 119/82; TEMP 97.9; O2SAT 98
[2024-12-07 20:30] VITALS: BP 134/84; TEMP 97.7; O2SAT 96
[2024-12-08 08:00] VITALS: BP 119/78; TEMP 98.4; O2SAT 97
[2024-12-08 16:00] VITALS: BP 131/80; TEMP 98.2; O2SAT 97
[2024-12-08 20:00] VITALS: BP 142/76; TEMP 97.5; O2SAT 96
[2024-12-09 07:00] VITALS: BP 98/79; TEMP 97.9; O2SAT 96
[2024-12-09 16:00] VITALS: BP 108/71; TEMP 97.7; O2SAT 98
[2024-12-09 20:00] VITALS: BP 135/83; TEMP 97.5; O2SAT 95
[2024-12-10 08:00] VITALS: BP 129/82; TEMP 98.4; O2SAT 99
[2024-12-10 20:00] VITALS: BP 132/84; TEMP 97.9; O2SAT 97
[2024-12-10 23:24] VITALS: BP 132/84; TEMP 97.9; O2SAT 97
[2024-12-11 15:58] VITALS: BP 130/83; TEMP 97.9; O2SAT 96
[2024-12-11 20:00] VITALS: BP 125/81; TEMP 98.2; O2SAT 99
[2024-12-12 08:00] VITALS: BP 124/75; TEMP 98.1; O2SAT 94
[2024-12-12] MEDS ORDERED: LORAZEPAM 1 MG TABLET FOR AGITATION PO PRN (13:00)
[2024-12-12 16:00] VITALS: BP 138/84; TEMP 98.2; O2SAT 95
[2024-12-12 20:00] VITALS: BP 136/86; TEMP 97.9; O2SAT 96
[2024-12-13 08:00] VITALS: BP 141/72; TEMP 98; O2SAT 98
[2024-12-13 15:52] VITALS: BP 132/80; TEMP 98.1; O2SAT 99
[2024-12-13 20:00] VITALS: BP 136/77; TEMP 98.1; O2SAT 97
[2024-12-14 16:00] VITALS: BP 128/80; TEMP 97.5; O2SAT 98
[2024-12-14 20:00] VITALS: BP 130/78; TEMP 97.9; O2SAT 96
[2024-12-15 19:57] VITALS: BP 131/76; TEMP 97.5; O2SAT 100
[2024-12-16 20:00] VITALS: BP 137/82; TEMP 98.2; O2SAT 95
[2024-12-17 07:30] VITALS: BP 124/83; TEMP 98.1; O2SAT 99
[2024-12-17 16:00] VITALS: BP 133/84; TEMP 97.5; O2SAT 96
[2024-12-17 20:00] VITALS: BP 157/87; TEMP 97.2; O2SAT 98
[2024-12-17 20:08] VITALS: BP 157/87; TEMP 97.2; O2SAT 100
[2024-12-18 08:00] VITALS: BP 108/64; TEMP 97.3; O2SAT 99
[2024-12-18 20:00] VITALS: BP 117/77; TEMP 97.5; O2SAT 95
[2024-12-19 07:00] VITALS: BP 109/83; TEMP 98.2; O2SAT 96
[2024-12-19] MEDS ORDERED: ZOLPIDEM TARTRATE 10 MG TABLET PO PRN (13:00)
[2024-12-19] MEDS ORDERED: LORAZEPAM 1 MG TABLET FOR AGITATION PO PRN (13:00)
[2024-12-19 16:00] VITALS: BP 123/87; TEMP 97.4; O2SAT 100
[2024-12-20 08:00] VITALS: BP 119/83; TEMP 97.7; O2SAT 99
[2024-12-20 16:47] VITALS: BP 129/81; TEMP 97.5; O2SAT 99
[2024-12-20 20:00] VITALS: BP 129/84; TEMP 97.3; O2SAT 97
[2024-12-21 07:30] VITALS: BP 118/83; TEMP 97.7; O2SAT 98
[2024-12-21 20:00] VITALS: BP 113/67; TEMP 97.3; O2SAT 95
[2024-12-22 08:00] VITALS: BP 124/78; TEMP 98.1; O2SAT 98
[2024-12-22 16:00] VITALS: BP 112/77; TEMP 98.4; O2SAT 97
[2024-12-22 20:00] VITALS: BP 122/97; TEMP 97.2; O2SAT 95
[2024-12-23 20:00] VITALS: BP 122/78; TEMP 98.2; TEMP 98.3; O2SAT 98
[2024-12-24 09:05] VITALS: BP 131/51; TEMP 97.5; O2SAT 95
[2024-12-24 20:49] VITALS: BP 131/73; TEMP 97.5; O2SAT 99
[2024-12-25 08:00] VITALS: BP 127/68; TEMP 98.3; O2SAT 100
[2024-12-25 20:00] VITALS: BP 127/77; TEMP 97.7; O2SAT 97
[2024-12-26 08:00] VITALS: BP 106/72; TEMP 97.9; O2SAT 96
[2024-12-26] MEDS ORDERED: ZOLPIDEM TARTRATE 10 MG TABLET PO PRN (13:00)
[2024-12-26 20:00] VITALS: BP 133/73; TEMP 97.5; O2SAT 98
[2024-12-27 07:00] VITALS: BP 135/93; TEMP 97.4; O2SAT 96
[2024-12-27 16:00] VITALS: BP 137/90; TEMP 97.3; O2SAT 99
[2024-12-27 20:00] VITALS: BP 119/76; TEMP 97.9; O2SAT 98
[2024-12-28 08:36] VITALS: BP 121/78; TEMP 97.3; O2SAT 100
[2024-12-28 20:00] VITALS: BP 118/100; TEMP 98.1; O2SAT 98
[2024-12-29 07:30] VITALS: BP 119/70; TEMP 97.3; O2SAT 96
[2024-12-30 07:30] VITALS: BP 112/77; TEMP 97.5; O2SAT 98
[2024-12-30 20:00] VITALS: BP 137/71; TEMP 97.5; O2SAT 98
[2024-12-31 08:57] VITALS: BP 124/83; TEMP 98; O2SAT 98
== END 2025-01-01 13:15 | disposition home or self-care (01) | DRG 951 ==
LOC: MED 14:26
PROVIDERS: ADMIT Psychiatry & Neurology Psychiatry; ATTEND Psychiatry & Neurology Psychiatry
DX: Z00.6 Encounter for examination for normal comparison and control in clinical research program (principal); F20.0 Paranoid schizophrenia
CPT/HCPCS: G0378